=== PATIENT | female | born 1955 | race Hispanic/Latino ===

== ENCOUNTER 2021-07-11 18:44 | Inpatient (IN) | payer MEDICARE ==
[2021-07-11 19:51] LABS: Basophils % (Auto) 0.4 % (0.0-1.8); Eosinophils # (Auto) 0.1 K/mm3 (0.0-0.4); Eosinophils % (Auto) 1.9 % (0.0-4.3); Hematocrit 41.6 % (30.3-42.9); Hemoglobin 13.5 gm/dl (10.1-14.3); Lymphocytes # (Auto) 1.7 K/mm3 (1.2-5.4); Lymphocytes % (Auto) 22.6 % (13.4-35.0); Mean Corpuscular HGB Conc 32 % (30-34); Mean Corpuscular Volume 92 fl (79-97); Monocytes % (Auto) 12.6 % (0.0-7.3); Platelet Count 383 K/mm3 (140-440); Red Blood Count 4.52 M/mm3 (3.65-5.03); Red Cell Distribution Width 15.3 % (13.2-15.2)
[2021-07-11 20:01] LABS: INR 1.09 (0.87-1.13); Partial Thromboplastin Time 28.4 Sec. (24.2-36.6)
[2021-07-11 20:08] LABS: Alanine Aminotransferase 20 units/L (7-56); Albumin 3.4 g/dL (3.9-5); Blood Urea Nitrogen 14 mg/dL (7-17); Calcium 9.4 mg/dL (8.4-10.2); Hemolysis Index 13
[2021-07-11 20:12] LABS: BUN/Creatinine Ratio 20
--- NOTE | 2021-07-11 22:02 | Emergency Department Report ---
HPI - General Chief Complaint: Vaginal Bleeding Time Seen by Provider: 07/11/21 21:12 - HPI HPI: 66-year-old female with history of dementia, obstructive sleep apnea, CHF, hypertension, UTI/pneumonia/sepsis currently on IV antibiotics and on Eliquis for unknown reasons brought in by EMS from her [facility] due to vaginal bleeding which has been ongoing for 1 month. Patient states that she has been experiencing vaginal bleeding over that period which is similar to the amount of bleeding she used to experience with her menstrual cycles. She is also passing blood clots. The reason she was brought in today was because the nurse who changes her diapers said that she had a lot of clots with bright red blood. She says she has some general abdominal cramps occasionally which feel like menstrual cramping but denies any significant abdominal pain. She also denies any associated headache/vision change, neck pain, chest pain, shortness of breath, nausea/vomiting, dysuria, melena/hematochezia, or any other complaints. It has been several years since her last menstrual cycle. Nurse Lozada called the [facility] and spoke with staff there who stated that the patient has not had vaginal bleeding for 1 month but in fact the bleeding started today which is the reason she was sent to the emergency department. ED Past Medical Hx - Past Medical History Previous Medical History?: Yes Hx Hypertension: Yes Hx GERD: Yes (with esophagitis) Hx Asthma: Yes (unilateral osteoartritis) Hx Dementia: Yes Additional medical history: UTIs, Obstructive Sleep Apnea, Bedbound at [facility], Patient take Eliquis ED Review of Systems ROS: Stated complaint: vaginal bleeding x 1 month Other details as noted in HPI Comment: All other systems reviewed and negative Constitutional: denies: chills, fever Eyes: denies: eye pain, vision change ENT: denies: throat pain, congestion Respiratory: denies: cough, shortness of breath Cardiovascular: denies: chest pain, palpitations Gastrointestinal: denies: abdominal pain, nausea, vomiting Genitourinary: other (vaginal bleeding). denies: dysuria, frequency Musculoskeletal: denies: back pain, arthralgia Skin: denies: rash, lesions Neurological: denies: headache, weakness, numbness Hematological/Lymphatic: easy bleeding, easy bruising Physical Exam - Physical Exam Vital Signs: Vital Signs 07/11/21 07/11/21 20:21 21:38 Temperature 98.2 F Pulse Rate 109 H 114 H Respiratory 20 20 Rate Blood Pressure 119/71 129/80 [Right] O2 Sat by Pulse 95 95 Oximetry Physical Exam: GENERAL: Morbidly obese female in no acute distress. HEAD: Normocephalic. No obvious signs of trauma. ENT: Dry mucous membranes. EYES: Extraocular movements are intact. Pupils are equal round and reactive to light bilaterally NECK: Supple. Full ROM is intact. Trachea is midline. LUNGS: Tachypneic. Equal chest rise bilaterally. Coarse breath sounds. Otherwise clear to auscultation bilaterally. CARDIOVASCULAR: Tachycardic with regular rhythm. No murmurs or rubs. VASCULAR: Cap refill < 2 seconds. 1+ pitting edema of the bilateral lower extremities ABDOMEN: Abdomen is soft and nondistended. There is no significant tenderness, guarding or rebound. There are multiple bruises seen throughout the abdomen /Rectal: With nurse present as pharmaceutical worker and the patient was rolled and cleaned and it can be seen that bleeding and blood clots are coming from the vagina. There is normal brown appearing stool in the rectum. Very difficult to see given the patient's body habitus and adiposity. SKIN: Skin is warm and dry NEURO: Patient is awake, alert, and oriented. Tremulous. glass wool blanket machine feeder II-XII grossly intact. No focal deficits. Normal motor and sensory exam throughout. Normal speech. ED Course Vital Signs 07/11/21 07/11/21 20:21 21:38 Temperature 98.2 F Pulse Rate 109 H 114 H Respiratory 20 20 Rate Blood Pressure 119/71 129/80 [Right] O2 Sat by Pulse 95 95 Oximetry ED Medical Decision Making - Lab Data Result diagrams: 07/12/21 02:27 07/11/21 19:34 - Radiology Data Radiology results: report reviewed - Medical Decision Making 66-year-old female with morbid obesity, dementia, MONA, hypertension, and CHF with recent pneumonia and sepsis and on Eliquis for unknown reason here for vaginal bleeding for 1 month with passage of blood clots. On initial assessment, the patient is afebrile and with normal vital signs other than elevated heart rate in the 100s to 110s. On physical exam, the patient is pale appearing and tachypneic. She is tremulous. Examination was performed with nurse present as pharmaceutical worker and confirms that bleeding is coming from the vagina but it is very difficult to visualize anything beyond that due to the patient's body habitus and adiposity. She has bruising on the abdomen. Labs were drawn prior to my examination and reveal no significant leukocytosis or anemia., Normal kidney function and no significant electrolyte abnormalities. We will perform CTA of the abdomen to assess for any evidence of active bleeding or internal bleeding given that the patient is anticoagulated with active vaginal bleeding and with bruising to the abdomen. Urinalysis shows evidence of UTI. I have ordered IV Rocephin and IV fluids. On repeat assessment, the patient remains unchanged. She remains tachycardic in the 120s. It is unclear whether the patient's status is changed from prior or whether she is chronically with tachycardia in the 120s. When the nurse spoke with staff at the [facility], she was told that in fact the patient has not had 1 month of vaginal bleeding but it started today for the first time. They also report that prior to today the patient's heart rate was in the 70s to 90s and that the tachycardia is new. Given increased tachycardia with vaginal bleeding in a patient who is anticoagulated, I feel that she requires frequent monitoring and assessment by [employer]CTURING TECHNOLOGIST. I spoke with Dr. Hebert of [employer] TECHNOLOG[employer] who states he will consult in the morning. I have also ordered a right upper quadrant ultrasound given finding of gas on CT which could be related to the patient's positioning according to the radiologist when I spoke to him on the phone. I spoke with Dr. Paulson the on-call hospitalist regarding case and he accepts patient for admission will assume care. Critical care attestation.: If time is entered above; I have spent that time in minutes in the direct care of this critically ill patient, excluding procedure time. ED Disposition Clinical Impression: Vaginal bleeding, UTI (urinary tract infection), Morbid obesity, Anticoagulated, Uterine fibroid Disposition: ADMITTED INPATIENT Is pt being admited?: Yes
[2021-07-12 00:34] LABS: Bilirubin,Urine NEG (Negative); Blood,Urine LG (Negative); Color,Urine Red (Yellow); Urobilinogen,Urine < 2.0 mg/dL (<2.0)
--- NOTE | 2021-07-12 00:40 | Cat Scan Report ---
CTA ABDOMEN AND PELVIS WITHOUT AND WITH CONTRAST INDICATION / CLINICAL INFORMATION: Evaluate for active bleeding. TECHNIQUE: Axial CT images were obtained through the abdomen and pelvis before and after after inject ion of 100 cc Omnipaque 350 IV contrast. 3 plane MIP / 3D reconstructions were produced. All CT scans at this location are performed using CT dose reduction for ALARA by means of automated exposure cont rol. COMPARISON: None available. FINDINGS: VASCULAR FINDINGS: AORTA / ARTERIES: No significant abnormality. NONVASCULAR FINDINGS: LOWER CHEST: Moderate cardiomegaly. No pericardial effusion. Lungs are blurred by motion. Nonspecific groundglass attenuation. LIVER: No significant abnormality. GALLBLADDER: Cholelithiasis multiple stones within the neck of the gallbladder. Small collection of a ir within the anti--dependent gallbladder not excluded. BILE DUCTS: No significant abnormality. SPLEEN: No significant abnormality. PANCREAS: No significant abnormality. ADRENALS: No significant abnormality. RIGHT KIDNEY / URETER: No significant abnormality. Small right renal cysts are suggested. LEFT KIDNEY / URETER: No significant abnormality. STOMACH / DUODENUM / SMALL BOWEL: No significant abnormality. COLON: No significant abnormality. No obvious intraluminal extravasation of intravenous contrast in t he delayed series to suggest active hemorrhage. APPENDIX: Not identified PERITONEUM: No free fluid. No free air. No findings to suggest active intraperitoneal hemorrhage. LYMPH NODES: No significant adenopathy. IVC / VEINS: No significant abnormality. URINARY BLADDER: No significant abnormality. REPRODUCTIVE ORGANS: Calcified uterine fibroids. Minimal prominence of the endometrial cavity demonst rated. ADDITIONAL ABDOMINAL/PELVIC FINDINGS: Foci of subcutaneous attenuation bilaterally within the neck. R eflect injection sites. No fluid collections or findings to suggest soft tissue hemorrhage within the abdominal pelvic wall. SKELETAL SYSTEM: Multilevel degenerative changes of the lumbar spine facet joints. IMPRESSION: 1. No CT evidence of active intraluminal extravasation of contrast to suggest active hemorrhage withi n bowel. No areas of active hemorrhage within the peritoneal cavity. No active hemorrhage within the soft tissues and musculature of the body wall and pelvic wall. 2. Cholelithiasis small collection of air within the antidependent gallbladder suggested. Signer Name: Christophe River II, MD Signed: 07/12/2021 12:36 AM Workstation Name: [id number]
[2021-07-12 00:45] LABS: Bacteria,Urine 2+ /HPF (Negative); Mucus,Urine FEW /HPF
[2021-07-12] MEDS ORDERED: cefTRIAXone/NS 2 GM/100 ML 2 GM/100 ML BAG IV ONE (00:50)
[2021-07-12] MEDS ORDERED: SODIUM CHLORIDE 0.9% 500 ML 500 ML IV ONE (01:03)
[2021-07-12] MEDS ORDERED: CEFEPIME/NS 2 GM/100 ML 2 GM/100 ML BAG IV ONE (02:07)
--- NOTE | 2021-07-12 02:51 | XRay Report ---
CHEST 1 VIEW INDICATION / CLINICAL INFORMATION: tachycardia. COMPARISON: None available. FINDINGS: SUPPORT DEVICES: None. HEART / MEDIASTINUM: No significant abnormality. LUNGS / PLEURA: No significant pulmonary or pleural abnormality. No pneumothorax. ADDITIONAL FINDINGS: No significant additional findings. IMPRESSION: 1. No active cardiopulmonary disease. Signer Name: Christophe River II, MD Signed: 07/12/2021 2:47 AM Workstation Name: [id number]
[2021-07-12 03:03] LABS: Basophils # (Auto) 0.1 K/mm3 (0.0-0.1); Basophils % (Auto) 1.2 % (0.0-1.8); Eosinophils # (Auto) 0.1 K/mm3 (0.0-0.4); Hemoglobin 13.6 gm/dl (10.1-14.3); Lymphocytes # (Auto) 1.5 K/mm3 (1.2-5.4); Monocytes # (Auto) 1.1 K/mm3 (0.0-0.8); Monocytes % (Auto) 12.2 % (0.0-7.3)
[2021-07-12] MEDS ORDERED: MORPHINE 2 MG/1 ML INJ IV PRN (03:12)
[2021-07-12] MEDS ORDERED: HYDROmorphone 1 MG/1 ML INJ IV PRN (03:12)
[2021-07-12] MEDS ORDERED: ALBUTEROL 2.5 MG/3 ML NEBU IH PRN (03:12)
[2021-07-12] MEDS ORDERED: SODIUM CHLORIDE 0.9% 1000 ML 1,000 ML IV SCH (03:15)
--- NOTE | 2021-07-12 03:19 | History and Physical Report ---
History of Present Illness Date of examination: 07/12/21 Date of admission: 07/12/21 Chief complaint: Vaginal bleeding History of present illness: 66-year-old female with history of dementia, obstructive sleep apnea, CHF, hypertension, UTI/pneumonia/sepsis currently on IV antibiotics and on Eliquis for unknown reasons brought in by EMS from her [facility] due to vaginal bleeding which has been ongoing for 1 month. Patient has been experiencing vaginal bleeding over that period which is similar to the amount of bleeding she used to experience with her menstrual cycles. She is also passing blood clots. The reason she was brought in today was because the nurse who changes her diapers said that she had a lot of clots with bright red blood. She says she aguayo s some general abdominal cramps occasionally which feel like menstrual cramping but denies any significant abdominal pain. She also denies any associated headache/vision change, neck pain, chest pain, shortness of breath, nausea/vomiting, dysuria, melena/hematochezia, or any other complaints. It has been several years since her last menstrual cycle. Nurse Lozada called the [facility] and spoke with staff there who stated that the patient has not had vaginal bleeding for 1 month but in fact the bleeding started today which is the reason she was sent to the emergency department. In the ER patient hemoglobin is 13.5 and hematocrit 41.6. WBC 7.7, PT is 15.3 INR 1.09. Urine suggestive of UTI. Subsequently Case discussed with on-call CONFERENCE ORGANIZER doctor who recommends to admit under hospitalist service and she will consult the patient. Past History Past Medical History: arthritis (Dementia UTIs, Obstructive Sleep Apnea, Bedbound at [facility], Patient take Eliquis), GERD (Asthma), other (dementia, obstructive sleep apnea, CHF, hypertension, UTI/pneumonia/sepsis ) Medications and Allergies Allergies Allergy/AdvReac Type Severity Reaction Status Date / Time No Known Allergies Allergy Unverified 07/11/21 19:14 Review of Systems Constitutional: weakness Genitourinary Female: abnormal vaginal bleeding Exam - Constitutional Vitals: Temp Pulse Resp BP Pulse Ox 98.2 F 115 H 20 121/76 96 07/11/21 20:21 07/12/21 01:00 07/12/21 01:00 07/12/21 01:00 07/12/21 01:00 General appearance: Present: no acute distress, well-nourished - EENT Eyes: Present: PERRL ENT: hearing intact, clear oral mucosa - Neck Neck: Present: supple, normal ROM - Respiratory Respiratory effort: normal Respiratory: bilateral: diminished - Cardiovascular Heart Sounds: Present: S1 & S2. Absent: rub, click - Extremities Extremities: pulses symmetrical, No edema Peripheral Pulses: within normal limits - Abdominal General gastrointestinal: Present: soft, non-tender, non-distended, normal bowel sounds Female genitourinary: Present: normal - Integumentary Integumentary: Present: clear, warm, dry - Musculoskeletal Musculoskeletal: gait normal, strength equal bilaterally - Psychiatric Psychiatric: appropriate mood/affect, intact judgment & insight - Neurologic Neurologic: CNII-XII intact, moves all extremities Results - Labs CBC & Chem 7: 07/12/21 02:27 07/11/21 19:34 Labs: Laboratory Last Values WBC 8.6 K/mm3 (4.5-11.0) 07/12/21 02:27 RBC 4.52 M/mm3 (3.65-5.03) 07/11/21 19:34 Hgb 13.6 gm/dl (10.1-14.3) 07/12/21 02:27 Hct 41.6 % (30.3-42.9) 07/11/21 19:34 MCV 92 fl (79-97) 07/11/21 19:34 MCH 30 pg (28-32) 07/11/21 19:34 MCHC 32 % (30-34) 07/11/21 19:34 RDW 15.3 % (13.2-15.2) H 07/11/21 19:34 Plt Count 383 K/mm3 (140-440) 07/11/21 19:34 Lymph % (Auto) 18.0 % (13.4-35.0) 07/12/21 02:27 [place] % (Auto) 12.2 % (0.0-7.3) H 07/12/21 02:27 Eos % (Auto) 1.0 % (0.0-4.3) 07/12/21 02:27 Baso % (Auto) 1.2 % (0.0-1.8) 07/12/21 02:27 Lymph # (Auto) 1.5 K/mm3 (1.2-5.4) 07/12/21 02:27 [place] # (Auto) 1.1 K/mm3 (0.0-0.8) H 07/12/21 02:27 Eos # (Auto) 0.1 K/mm3 (0.0-0.4) 07/12/21 02:27 Baso # (Auto) 0.1 K/mm3 (0.0-0.1) 07/12/21 02:27 Seg Neutrophils % 67.6 % (40.0-70.0) 07/12/21 02:27 Seg Neutrophils # 5.8 K/mm3 (1.8-7.7) 07/12/21 02:27 PT 15.3 Sec. (12.2-14.9) H 07/11/21 19:34 INR 1.09 (0.87-1.13) 07/11/21 19:34 APTT 28.4 Sec. (24.2-36.6) 07/11/21 19:34 Sodium 139 mmol/L (137-145) 07/11/21 19:34 Potassium 4.4 mmol/L (3.6-5.0) 07/11/21 19:34 Chloride 100.1 mmol/L (98-107) 07/11/21 19:34 Carbon Dioxide 28 mmol/L (22-30) 07/11/21 19:34 Anion Gap 15 mmol/L 07/11/21 19:34 BUN 14 mg/dL (7-17) 07/11/21 19:34 Creatinine 0.7 mg/dL (0.6-1.2) 07/11/21 19:34 Estimated GFR > 60 ml/min 07/11/21 19:34 BUN/Creatinine Ratio 20 % 07/11/21 19:34 Glucose 119 mg/dL (65-100) H 07/11/21 19:34 Calcium 9.4 mg/dL (8.4-10.2) 07/11/21 19:34 Total Bilirubin 0.40 mg/dL (0.1-1.2) 07/11/21 19:34 AST 26 units/L (5-40) 07/11/21 19:34 ALT 20 units/L (7-56) 07/11/21 19:34 Alkaline Phosphatase 37 units/L (35-129) 07/11/21 19:34 Total Protein 7.2 g/dL (6.3-8.2) 07/11/21 19:34 Albumin 3.4 g/dL (3.9-5) L 07/11/21 19:34 Albumin/Globulin Ratio 0.9 % 07/11/21 19:34 Urine Color Red (Yellow) 07/12/21 Unknown Urine Turbidity Cloudy (Clear) 07/12/21 Unknown Urine pH 6.0 (5.0-7.0) 07/12/21 Unknown Ur Specific [place] 1.017 (1.003-1.030) 07/12/21 Unknown Urine Protein 100 mg/dl mg/dL (Negative) 07/12/21 Unknown Urine Glucose (UA) Neg mg/dL (Negative) 07/12/21 Unknown Urine Ketones Tr mg/dL (Negative) 07/12/21 Unknown Urine Blood Lg (Negative) 07/12/21 Unknown Urine Nitrite Neg (Negative) 07/12/21 Unknown Urine Bilirubin Neg (Negative) 07/12/21 Unknown Urine Urobilinogen < 2.0 mg/dL (<2.0) 07/12/21 Unknown Ur Leukocyte Esterase Mod (Negative) 07/12/21 Unknown Urine WBC (Auto) 23.0 /HPF (0.0-6.0) H 07/12/21 Unknown Urine RBC (Auto) 38.0 /HPF (0.0-6.0) 07/12/21 Unknown U Epithel Cells (Auto) 3.0 /HPF (0-13.0) 07/12/21 Unknown Urine Bacteria (Auto) 2+ /HPF (Negative) 07/12/21 Unknown Urine Mucus Few /HPF 07/12/21 Unknown - Imaging and Cardiology CT scan - abdomen: report reviewed Assessment and Plan VTE prophylaxis?: Mechanical Plan of care discussed with patient/family: Yes - Patient Problems (1) Vaginal bleeding Current Visit: Yes Status: Acute Plan to address problem: Admit the patient to the medical telemetry. Normal saline at the rate of 75 cc/h. We will hold the anticoagulation. FINISHING ROOM OPERATOR will see the patient in consultation. Recheck CBC in the morning (2) Anticoagulated Current Visit: Yes Status: Acute Plan to address problem: We hold anticoagulation Eliquis. FINISHING ROOM OPERATOR evaluation. Recheck CBC PT/INR in the morning (3) UTI (urinary tract infection) Current Visit: Yes Status: Acute Plan to address problem: Rocephin 2 g IV daily. Blood culture urine culture (4) GERD (gastroesophageal reflux disease) Current Visit: Yes Status: Acute Plan to address problem: Pepcid 20 mg p.o. twice daily for GI prophylaxis. We will continue the home medication (5) Dementia Current Visit: Yes Status: Acute Plan to address problem: Stable. We will continue home medication (6) Hypertension Current Visit: Yes Status: Acute Plan to address problem: Hydralazine 10 mg IV every 6 hours as needed. We will continue the home medication. We will monitor the blood pressure closely (7) Obstructive sleep apnea Current Visit: Yes Status: Acute Plan to address problem: Oxygen via nasal cannula 3 L/min. DuoNeb by nebulizer every 4 hours. Outpatient sleep study (8) Morbid obesity Current Visit: Yes Status: Acute Plan to address problem: We counseled regarding weight reduction. Outpatient follow-up with bariatric surgery (9) Uterine fibroid Current Visit: Yes Status: Acute Plan to address problem: FINISHING ROOM OPERATOR will see the patient in consultation. Recheck CBC in the morning (10) DVT prophylaxis Current Visit: Yes Status: Acute Plan to address problem: SCD for DVT prophylaxis. Pepcid 20 mg p.o. twice daily for GI prophylaxis. Patient is a full code
[2021-07-12 03:27] LABS: Hematocrit 42.4 % (30.3-42.9); Mean Corpuscular HGB Conc 32 % (30-34); Mean Corpuscular Volume 92 fl (79-97); Platelet Count 351 K/mm3 (140-440); Red Cell Distribution Width 15.5 % (13.2-15.2)
[2021-07-12] MEDS: IPRATROPIUM/ALBUTEROL SULFATE 3 ML AMPUL.NEB IH SCH ×3 (10:35→22:58)
[2021-07-12] MEDS: cefTRIAXone/NS 2 GM/100 ML 2 GM/100 ML BAG IV SCH (12:50)
--- NOTE | 2021-07-12 15:21 | Consultation ---
History of Present Illness Consult date: 07/12/21 Reason for consult: other (postmenopausal bleed with clots) History of present illness: 66yo that gives history of vaginal bleeding monthly for the past 2yrs. pt states that bleeding has been persistent for the past 2wks. pt denies having sexual intercourse for the past 10yrs nor any stds in the past. pt also denies family history of uterine or cervical cancer. pt's last pap was more than 10yrs ago and states she has never had an abnormal pap. pt says she was placed on blood thinners because she "passed out". pt denies pelvic pain. Past History Past Medical History: hypertension, other (Dementia, CHF, morbid obesity per primary team H&P) Past Surgical History: other (right total knee replacement) Social history: no significant social history Medications and Allergies Allergies Allergy/AdvReac Type Severity Reaction Status Date / Time No Known Allergies Allergy Verified 07/12/21 08:57 Home Medications Medication Instructions Recorded Confirmed Last Taken Type Acetaminophen [Non-Aspirin Extra 1,000 mg PO Q6HR PRN 07/12/21 07/12/21 Unknown History Strength] Albuterol Mdi (or & Nicu Only) 2 puff IH Q4H PRN 07/12/21 07/12/21 Unknown Hi story [ProAir HFA Inhaler] Apixaban [Eliquis] 2.5 mg PO BID 07/12/21 07/12/21 Unknown History Benzonatate [Tessalon Perles] 100 mg PO TID PRN 07/12/21 07/12/21 Unknown History Budesonide/Formoterol Fumarate 2 puff IH Q12H 07/12/21 07/12/21 Unknown History [Symbicort 160-4.5 Mcg Inhaler] Divalproex Sprinkle [Depakote 250 mg PO Q12H 07/12/21 07/12/21 Unknown History Sprinkle] Enalapril Maleate [Vasotec] 5 mg PO QDAY 07/12/21 07/12/21 Unknown History Fenofibrate 160 mg PO QDAY 07/12/21 07/12/21 Unknown History Melatonin [Melatonin 3MG TAB] 3 mg PO QHS 07/12/21 07/12/21 Unknown History Metoprolol [Lopressor TAB] 25 mg PO BID 07/12/21 07/12/21 Unknown History Omeprazole 20 mg PO QDAY 07/12/21 07/12/21 Unknown History Sennosides/Docusate Sodium 1 tab PO BID 07/12/21 07/12/21 Unknown History [Docusate Sodium-Senna Tablet] Simvastatin 20 mg PO QHS 07/12/21 07/12/21 Unknown History traZODone [Desyrel] 50 mg PO QHS 07/12/21 07/12/21 Unknown History Active Meds: Active Medications Acetaminophen (Acetaminophen 325 Mg Tab) 650 mg PO Q4H PRN PRN Reason: Pain MILD(1-3)/Fever >100.5/CHENG Albuterol (Albuterol 2.5 Mg/3 Ml Nebu) 2.5 mg IH Q3HRT PRN PRN Reason: Shortness Of Breath Albuterol/Ipratropium (Ipratropium/Albuterol Sulfate 3 Ml Ampul.Neb) 1 ampul IH Q6HRT [facility] Last Admin: 07/12/21 15:03 Dose: Not Given Famotidine (Famotidine 20 Mg Tab) 20 mg PO BID [facility] Hydromorphone HCl (Hydromorphone 1 Mg/1 Ml Inj) 0.5 mg IV Q3H PRN PRN Reason: Pain , Severe (7-10) Sodium Chloride (Nacl 0.9% 1000 Ml) 1,000 mls @ 75 mls/hr IV DIRECT [facility] Last Admin: 07/12/21 12:55 Dose: 75 mls/hr Ceftriaxone Sodium (Rocephin/Ns 2 Gm/100 Ml) 2 gm in 100 mls @ 200 mls/hr IV Q24HR [facility]; Protocol Last Admin: 07/12/21 12:50 Dose: 200 mls/hr Morphine Sulfate (Morphine 2 Mg/1 Ml Inj) 2 mg IV Q4H PRN PRN Reason: Pain, Moderate (4-6) Ondansetron HCl (Ondansetron 4 Mg/2 Ml Inj) 4 mg IV Q8H PRN PRN Reason: Nausea And Vomiting Sodium Chloride (Sodium Chloride 0.9% 10 Ml Flush Syringe) 10 ml IV BID [facility] Last Admin: 07/12/21 12:51 Dose: 10 ml Sodium Chloride (Sodium Chloride 0.9% 10 Ml Flush Syringe) 10 ml IV PRN PRN PRN Reason: LINE FLUSH Review of Systems All systems: negative (vag bleed) - Vital Signs Vital signs: Vital Signs Temp Pulse Resp BP Pulse Ox 98.2 F 109 H 20 119/71 95 07/11/21 20:21 07/11/21 20:21 07/11/21 20:21 07/11/21 20:21 07/11/21 20:21 Temp Pulse Resp BP Pulse Ox 97.7 F 121 H 18 106/68 92 07/12/21 12:10 07/12/21 12:10 07/12/21 12:10 07/12/21 12:10 07/12/21 12:10 - Physical Exam Breasts: Positive: deferred Cardiovascular: Regular rate Lungs: Positive: Normal air movement Abdomen: Positive: soft (morbid obesity, therefore limited exam) Genitourinary (Female): Positive: other (limited exam because of bilateral thigh occlude visibility of perineum; Cervix barely palpated and same; Old blood with 1cm dark clot seen) Uterus: Positive: other (Unable to palpate uterus thru pannus; pt also incontinent of stool, copious amount and pt examined after she was cleaned up) Results Result Diagrams: 07/13/21 05:56 07/13/21 05:56 Abnormal lab results 07/11/21 07/11/21 07/11/21 Range/Units 19:34 19:34 19:34 RDW 15.3 H (13.2-15.2) % [place] % (Auto) 12.6 H (0.0-7.3) % [place] # (Auto) 1.0 H (0.0-0.8) K/mm3 PT 15.3 H (12.2-14.9) Sec. Glucose 119 H (65-100) mg/dL Albumin 3.4 L (3.9-5) g/dL Urine WBC (Auto) (0.0-6.0) /HPF 07/12/21 07/12/21 Range/Units 02:27 Unknown RDW 15.5 H (13.2-15.2) % [place] % (Auto) 12.2 H (0.0-7.3) % [place] # (Auto) 1.1 H (0.0-0.8) K/mm3 PT (12.2-14.9) Sec. Glucose (65-100) mg/dL Albumin (3.9-5) g/dL Urine WBC (Auto) 23.0 H (0.0-6.0) /HPF All other labs normal. Assessment and Plan Postmenopausal bleed, with unchanged hemoglobin and without hemorrhage 1. CT report seen with minimal prominence of endometrial canal; transvag with probe pelvic u/sound ordered and pt told that probe will be used 2. Pt is a poor surgical candidate, however tissue sample needed if endometrial lining >1cm 3. Primary med team to decide how much anticoagulant needed for her chronic ill ness 4. Pt can be evaluated as an outpatient without active hemorrhage with clots 5. Continue serial CBC's All questions encouraged and answered
[2021-07-12] MEDS: FAMOTIDINE 20 MG TAB PO SCH ×2 (15:56→21:58)
--- NOTE | 2021-07-12 18:07 | Ultrasound Report ---
ULTRASOUND PELVIS INDICATION: postmenopausal bleeding. TECHNIQUE: Transabdominal and Transvaginal. Duplex Color Doppler used: Yes. COMPARISON: None available FINDINGS: This study is limited by the patient's inability to tolerate transvaginal imaging. Uterus: Present. Size: 9.7 x 3.0 x 6.0 cm. Endometrial complex: Mildly thickened, measuring 0.55 cm. Mass lesions: A probable fibroid is seen arising anteriorly measuring up to 5.3 cm. No other masses a re identified. Additional findings: None. Right Ovary: Surgically absent. No significant right adnexal abnormality. Left Ovary: Obscured by bowel gas. No left adnexal abnormality is clearly seen. Urinary Bladder: Normal. Free Fluid: None. Additional Findings: None. IMPRESSION: 1. Mild endometrial thickening measuring 0.55 cm without identification of an endometrial mass. 2. Probable uterine fibroid as above. 3. Additional findings as above. Signer Name: Gio Chao MD Signed: 07/12/2021 6:03 PM Workstation Name: [id number]
--- NOTE | 2021-07-12 22:22 | Progress Note ---
Assessment and Plan Assessment and plan: 66-year-old female with history of severe obesity with BMI 55, mild dementia dementia, obstructive sleep apnea, CHF, hypertension and fully ambulatory was living with her daughter when she was admitted to [place] in special care hospital couple of weeks ago in 06/2021 and was diagnosed with the COVID-19 pneumonia, UTI and bloodstream infection and was discharged to subacute rehab on IV antibiotics and on Eliquis for unknown reasons brought in by EMS from her assisted due to vaginal bleeding which has been ongoing for 2 weeks. Records with patient and daughter patient had no menses for for couple of years and then menses resumed about years ago but patient did not get this evaluated. According daughter, menses are sometimes heavy. Patient is sent to ED for evaluation since having bleeding for 2 weeks with passed some clots. Some menstrual type of abdominal cramps but denies any significant abdominal pain. She also denies any associated headache/vision change, neck pain, chest pain, shortness of breath, nausea/vomiting, dysuria, melena/hematochezia, or any other complaints. She has history of heart failure and there was seeing for several years then quit seeing him many years ago. In the ER patient hemoglobin is 13.5 and hematocrit 41.6. WBC 7.7, PT is 15.3 INR 1.09. Urine suggestive of UTI. Patient has no fever or chills. Subsequently Case discussed with on-call SLP doctor who recommends to admit under hospitalist service and she will consult the patient. (1) uterine bleeding with history of menses after a gap, age 66 years Current Visit: Yes Status: Acute Plan to address problem: Currently no vaginal bleeding. Pelvic examination performed by SLP today revealed dark blood on glove. Patient denies abdominal pains or cramping. Patient reports having menses since 2 years after interruption for a couple of years. Not previously worked up by SLP. CT abdomen/pelvis shows minimally prominent endometrium and a calcified fibroid. Vaginal ultrasound shows fatoumata rderline endometrial thickness, 0.55 Centimeters, fibroid, right ovary surgically absent. ovary is obscured by bowel gas. Urinary bladder unremarkable. Patient denies dizziness, lightheadedness, chest pains or palpitations. SLP recommends endometrial biopsy if endometrial thickness is more than 1 cm. Patient could be followed as outpatient. Hemoglobin and BP stable. Patient has mild sinus tachycardia with unknown baseline. Will monitor hemodynamics and hemoglobin. (2) Anticoagulated with Eliquis Current Visit: Yes Status: Acute Plan to address problem: We hold anticoagulation Eliquis for now. Vaginal bleeding almost stopped. Indication for Eliquis started recently is unclear but could be related to thrombophilia seen with COVID-19 infection. (3) recently treated UTI with bacteremia, current urine cultures grew skin dottie Current Visit: Yes Status: Acute Plan to address problem: Patient was recently diagnosed with UTI and bacteremia at [facility] and sent home on IV antibiotics. Currently has no fever, dysuria. Empirically started on Rocephin Rocephin 2 g IV daily. Blood culture negative. Urine culture grew skin dottie. Discontinue Rocephin. Pelvic ultrasound shows unremarkable urinary bladder. Bedside bladder scan shows no urinary retention. (4) GERD (gastroesophageal reflux disease) Current Visit: Yes Status: Acute Plan to address problem: Pepcid 20 mg p.o. twice daily for GI prophylaxis. We will continue the home medication (5) mild dementia Current Visit: Yes Status: Acute Plan to address problem: Stable. Patient alert and oriented and answers to questions appropriately. She does get occasionally confused as described by her daughter. We will continue home medication (6) Hypertension Current Visit: Yes Status: Acute Plan to address problem: Hydralazine 10 mg IV every 6 hours as needed. We will continue the home medication. We will monitor the blood pressure closely (7) severe obesity, BMI 55, obstructive sleep apnea Current Visit: Yes Status: Acute Plan to address problem: Oxygen via nasal cannula 3 L/min. DuoNeb by nebulizer every 4 hours. Outpatient sleep study (8) remote history of heart failure Current Visit: Yes Status: Acute Plan to address problem: Patient was seeing a payment poster, Dr. Larose for several years but then quit seeing him many years ago. Currently appears to be euvolemic. Has mild sinus tachycardia but baseline rate unknown. (9) Uterine fibroid Current Visit: Yes Status: Acute Plan to address problem: Seen on CT on the ultrasound. AGRICULTURAL EXTENSION EDUCATOR will see the patient in consultation. Recheck CBC in the morning (10) DVT prophylaxis Current Visit: Yes Status: Acute Plan to address problem: SCD for DVT prophylaxis. Pepcid 20 mg p.o. twice daily for GI prophylaxis. Patient is a full code Discussed with the patient, nursing staff, her daughter as well as SLP. History Interval history: Patient is alert and oriented. Currently no vaginal bleeding. Pelvic examination performed by SLP today revealed dark blood on glove. Patient denies abdominal pains or cramping. Patient reports having menses since 2 years after interruption for a couple of years. Not previously worked up by SLP. Patient denies dizziness, lightheadedness, chest pains or palpitations. She is tolerating diet. Afebrile. Patient not sure of the indication for Eliquis therapy started at [facility]. Denies history of A. fib. No ecchymosis/bruises, hematuria, melena hematochezia. BP and hemoglobin stable. BP and hemoglobin stable. Hospitalist Physical - Constitutional Vitals: Temp Pulse Resp BP Pulse Ox 97.7 F 122 H 19 123/83 90 07/12/21 19:33 07/12/21 19:33 07/12/21 19:33 07/12/21 19:33 07/12/21 19:33 General appearance: Present: no acute distress, obese (Severe obesity, BMI 55.) - EENT Eyes: Present: PERRL, EOM intact ENT: hearing intact, clear oral mucosa - Neck Neck: Present: supple - Respiratory Respiratory effort: normal Respiratory: bilateral: CTA - Cardiovascular Rhythm: regular - Extremities Extremities: No edema - Abdominal General gastrointestinal: soft, non-tender, normal bowel sounds, other (Obese) - Integumentary Integumentary: Absent: rash - Psychiatric Psychiatric: appropriate mood/affect - Neurologic Neurologic: no focal deficits, moves all extremities Results - Labs CBC & Chem 7: 07/13/21 05:56 07/13/21 05:56 Labs: Laboratory Last Values WBC 8.6 K/mm3 (4.5-11.0) 07/12/21 02:27 RBC 4.60 M/mm3 (3.65-5.03) 07/12/21 02:27 Hgb 13.6 gm/dl (10.1-14.3) 07/12/21 02:27 Hct 42.4 % (30.3-42.9) 07/12/21 02:27 MCV 92 fl (79-97) 07/12/21 02:27 MCH 30 pg (28-32) 07/12/21 02:27 MCHC 32 % (30-34) 07/12/21 02:27 RDW 15.5 % (13.2-15.2) H 07/12/21 02:27 Plt Count 351 K/mm3 (140-440) 07/12/21 02:27 Lymph % (Auto) 18.0 % (13.4-35.0) 07/12/21 02:27 [place] % (Auto) 12.2 % (0.0-7.3) H 07/12/21 02:27 Eos % (Auto) 1.0 % (0.0-4.3) 07/12/21 02:27 Baso % (Auto) 1.2 % (0.0-1.8) 07/12/21 02:27 Lymph # (Auto) 1.5 K/mm3 (1.2-5.4) 07/12/21 02:27 [place] # (Auto) 1.1 K/mm3 (0.0-0.8) H 07/12/21 02:27 Eos # (Auto) 0.1 K/mm3 (0.0-0.4) 07/12/21 02:27 Baso # (Auto) 0.1 K/mm3 (0.0-0.1) 07/12/21 02:27 Seg Neutrophils % 67.6 % (40.0-70.0) 07/12/21 02: Seg Neutrophils # 5.8 K/mm3 (1.8-7.7) 07/12/21 02:27 PT 15.3 Sec. (12.2-14.9) H 07/11/21 19:34 INR 1.09 (0.87-1.13) 07/11/21 19:34 APTT 28.4 Sec. (24.2-36.6) 07/11/21 19:34 Sodium 139 mmol/L (137-145) 07/11/21 19:34 Potassium 4.4 mmol/L (3.6-5.0) 07/11/21 19:34 Chloride 100.1 mmol/L (98-107) 07/11/21 19:34 Carbon Dioxide 28 mmol/L (22-30) 07/11/21 19:34 Anion Gap 15 mmol/L 07/11/21 19:34 BUN 14 mg/dL (7-17) 07/11/21 19:34 Creatinine 0.7 mg/dL (0.6-1.2) 07/11/21 19:34 Estimated GFR > 60 ml/min 07/11/21 19:34 BUN/Creatinine Ratio 20 % 07/11/21 19:34 Glucose 119 mg/dL (65-100) H 07/11/21 19:34 Calcium 9.4 mg/dL (8.4-10.2) 07/11/21 19:34 Total Bilirubin 0.40 mg/dL (0.1-1.2) 07/11/21 19:34 AST 26 units/L (5-40) 07/11/21 19:34 ALT 20 units/L (7-56) 07/11/21 19:34 Alkaline Phosphatase 37 units/L (35-129) 07/11/21 19:34 Total Protein 7.2 g/dL (6.3-8.2) 07/11/21 19:34 Albumin 3.4 g/dL (3.9-5) L 07/11/21 19:34 Albumin/Globulin Ratio 0.9 % 07/11/21 19:34 Urine Color Red (Yellow) 07/12/21 Unknown Urine Turbidity Cloudy (Clear) 07/12/21 Unknown Urine pH 6.0 (5.0-7.0) 07/12/21 Unknown Ur Specific [place] 1.017 (1.003-1.030) 07/12/21 Unknown Urine Protein 100 mg/dl mg/dL (Negative) 07/12/21 Unknown Urine Glucose (UA) Neg mg/dL (Negative) 07/12/21 Unknown Urine Ketones Tr mg/dL (Negative) 07/12/21 Unknown Urine Blood Lg (Negative) 07/12/21 Unknown Urine Nitrite Neg (Negative) 07/12/21 Unknown Urine Bilirubin Neg (Negative) 07/12/21 Unknown Urine Urobilinogen < 2.0 mg/dL (<2.0) 07/12/21 Unknown Ur Leukocyte Esterase Mod (Negative) 07/12/21 Unknown Urine WBC (Auto) 23.0 /HPF (0.0-6.0) H 07/12/21 Unknown Urine RBC (Auto) 38.0 /HPF (0.0-6.0) 07/12/21 Unknown U Epithel Cells (Auto) 3.0 /HPF (0-13.0) 07/12/21 Unknown Urine Bacteria (Auto) 2+ /HPF (Negative) 07/12/21 Unknown Urine Mucus Few /HPF 07/12/21 Unknown Microbiology: Microbiology 07/12/21 Unknown Urine,Clean Catch Urine Culture - Preliminary 07/12/21 01:47 Peripheral/Venous Blood Culture - Preliminary Culture in Progress 07/12/21 00:54 Peripheral/Venous Blood Culture - Preliminary Culture in Progress Active Medications - Current Medications Current Medications: Generic Name Dose Route Start Last Admin Trade Name Freq PRN Reason Stop Dose Admin Acetaminophen 650 mg 07/12/21 03:12 Acetaminophen 325 Mg Tab PO Q4H PRN Pain MILD(1-3)/Fever >100.5/CHENG Albuterol 2.5 mg 07/12/21 03:12 Albuterol 2.5 Mg/3 Ml Nebu IH Q3HRT PRN Shortness Of Breath Albuterol/Ipratropium 1 ampul 07/12/21 08:00 07/12/21 15:03 Ipratropium/Albuterol Sulfate 3 Ml Ampul.Neb IH Not Given Q6HRT SWATI Famotidine 20 mg 07/12/21 10:00 07/12/21 21:58 Famotidine 20 Mg Tab PO 20 mg BID SWATI Administration Hydromorphone HCl 0.5 mg 07/12/21 03:12 07/12/21 15:56 Hydromorphone 1 Mg/1 Ml Inj IV 0.5 mg Q3H PRN Administration Pain , Severe (7-10) Sodium Chloride 1,000 mls @ 75 mls/hr 07/12/21 03:15 07/12/21 12:55 Nacl 0.9% 1000 Ml IV 75 mls/hr DIRECT SWATI Administration Ceftriaxone Sodium 2 gm in 100 mls @ 200 mls/hr 07/12/21 10:00 07/12/21 12:50 Rocephin/Ns 2 Gm/100 Ml IV 200 mls/hr Q24HR SWATI Administration Protocol Morphine Sulfate 2 mg 07/12/21 03:12 Morphine 2 Mg/1 Ml Inj IV Q4H PRN Pain, Moderate (4-6) Ondansetron HCl 4 mg 07/12/21 03:12 Ondansetron 4 Mg/2 Ml Inj IV Q8H PRN Nausea And Vomiting Sodium Chloride 10 ml 07/12/21 10:00 07/12/21 21:58 Sodium Chloride 0.9% 10 Ml Flush Syringe IV 10 ml BID SWATI Administration Sodium Chloride 10 ml 07/12/21 03:12 Sodium Chloride 0.9% 10 Ml Flush Syringe IV PRN PRN LINE FLUSH
[2021-07-13] MEDS: IPRATROPIUM/ALBUTEROL SULFATE 3 ML AMPUL.NEB IH SCH ×5 (02:21→20:43)
[2021-07-13 06:35] LABS: Basophils # (Auto) 0.1 K/mm3 (0.0-0.1); Basophils % (Auto) 1.3 % (0.0-1.8); Eosinophils # (Auto) 0.1 K/mm3 (0.0-0.4); Eosinophils % (Auto) 1.4 % (0.0-4.3); Hemoglobin 12.3 gm/dl (10.1-14.3); Lymphocytes # (Auto) 1.4 K/mm3 (1.2-5.4); Lymphocytes % (Auto) 16.2 % (13.4-35.0); Mean Corpuscular HGB Conc 33 % (30-34); Mean Corpuscular Volume 92 fl (79-97); Monocytes % (Auto) 10.9 % (0.0-7.3); Platelet Count 336 K/mm3 (140-440); Red Blood Count 4.13 M/mm3 (3.65-5.03); Red Cell Distribution Width 15.4 % (13.2-15.2)
[2021-07-13 06:54] LABS: INR 1.08 (0.87-1.13)
[2021-07-13 06:55] LABS: Blood Urea Nitrogen 16 mg/dL (7-17)
[2021-07-13 06:56] LABS: Hemolysis Index 6
[2021-07-13 07:05] LABS: BUN/Creatinine Ratio 27
[2021-07-13] MEDS: cefTRIAXone/NS 2 GM/100 ML 2 GM/100 ML BAG IV SCH (09:43)
[2021-07-13] MEDS: FAMOTIDINE 20 MG TAB PO SCH ×2 (09:43→21:07)
--- NOTE | 2021-07-13 16:56 | Discharge Summary ---
Providers - Providers Date of Admission: 07/12/21 03:12 Attending physician: ELLI GONSALVES MD 07/12/21 02:14 Consult to Physician [CONS] Urgent Comment: Consulting Provider: RACHEL PAIZ Physician Instructions: Reason For Exam: vag bleeding on eliquis 07/13/21 12:54 psychiatry consult [Consult to Mental Health] [CONS] Stat Reason For Exam: acute paranoid Primary care physician: TORCH CUTTER Hospitalization Condition: Stable Exam - Constitutional Vitals: Temp Pulse Resp BP Pulse Ox 98.4 F 119 H 20 146/87 97 07/13/21 10:08 07/13/21 13:50 07/13/21 13:50 07/13/21 10:08 07/13/21 11:00 Plan Activity: advance as tolerated Diet: low fat Additional Instructions: See Dr. Soto, PRIVATE ADVISOR for follow-up in 2 weeks on vaginal bleeding, call to make an appointment Follow up with: PRIMARY CAREMD [Primary Care Provider] - 3-5 Days
[2021-07-13] MEDS ORDERED: NON-FORMULARY EACH (Budesonide/Formoterol Fumarate [Symbicort 160-4.5 Mcg Inhaler] 10.2 GM IH SCH (18:00)
[2021-07-13] MEDS: ARFORMOTEROL 15 MCG/2 ML NEBU IH SCH (20:39)
[2021-07-13] MEDS: BUDESONIDE 0.5 MG/2 ML NEBU IH SCH (20:39)
--- NOTE | 2021-07-13 20:47 | Progress Note ---
Hospitalist Physical - Constitutional Vitals: Temp Pulse Resp BP Pulse Ox 97.9 F 86 16 140/75 94 07/13/21 19:48 07/13/21 20:00 07/13/21 20:00 07/13/21 19:48 07/13/21 19:48 General appearance: Present: no acute distress, obese (Severe obesity, BMI 55.) Results - Labs CBC & Chem 7: 07/13/21 05:56 07/13/21 05:56 Labs: Laboratory Last Values WBC 8.9 K/mm3 (4.5-11.0) 07/13/21 05:56 RBC 4.13 M/mm3 (3.65-5.03) 07/13/21 05:56 Hgb 12.3 gm/dl (10.1-14.3) 07/13/21 05:56 Hct 38.0 % (30.3-42.9) 07/13/21 05:56 MCV 92 fl (79-97) 07/13/21 05:56 MCH 30 pg (28-32) 07/13/21 05:56 MCHC 33 % (30-34) 07/13/21 05:56 RDW 15.4 % (13.2-15.2) H 07/13/21 05:56 Plt Count 336 K/mm3 (140-440) 07/13/21 05:56 Lymph % (Auto) 16.2 % (13.4-35.0) 07/13/21 05:56 [place] % (Auto) 10.9 % (0.0-7.3) H 07/13/21 05:56 Eos % (Auto) 1.4 % (0.0-4.3) 07/13/21 05:56 Baso % (Auto) 1.3 % (0.0-1.8) 07/13/21 05:56 Lymph # (Auto) 1.4 K/mm3 (1.2-5.4) 07/13/21 05:56 [place] # (Auto) 1.0 K/mm3 (0.0-0.8) H 07/13/21 05:56 Eos # (Auto) 0.1 K/mm3 (0.0-0.4) 07/13/21 05:56 Baso # (Auto) 0.1 K/mm3 (0.0-0.1) 07/13/21 05:56 Seg Neutrophils % 70.2 % (40.0-70.0) H 07/13/21 05:56 Seg Neutrophils # 6.3 K/mm3 (1.8-7.7) 07/13/21 05:56 PT 15.2 Sec. (12.2-14.9) H 07/13/21 05:56 INR 1.08 (0.87-1.13) 07/13/21 05:56 APTT 28.4 Sec. (24.2-36.6) 07/11/21 19:34 Sodium 137 mmol/L (137-145) 07/13/21 05:56 Potassium 3.9 mmol/L (3.6-5.0) 07/13/21 05:56 Chloride 99.5 mmol/L (98-107) 07/13/21 05:56 Carbon Dioxide 24 mmol/L (22-30) 07/13/21 05:56 Anion Gap 17 mmol/L 07/13/21 05:56 BUN 16 mg/dL (7-17) 07/13/21 05:56 Creatinine 0.6 mg/dL (0.6-1.2) 07/13/21 05:56 Estimated GFR > 60 ml/min 07/13/21 05:56 BUN/Creatinine Ratio 27 % 07/13/21 05:56 Glucose 103 mg/dL (65-100) H 07/13/21 05:56 Calcium 9.0 mg/dL (8.4-10.2) 07/13/21 05:56 Total Bilirubin 0.40 mg/dL (0.1-1.2) 07/11/21 19:34 AST 26 units/L (5-40) 07/11/21 19:34 ALT 20 units/L (7-56) 07/11/21 19:34 Alkaline Phosphatase 37 units/L (35-129) 07/11/21 19:34 Total Protein 7.2 g/dL (6.3-8.2) 07/11/21 19:34 Albumin 3.4 g/dL (3.9-5) L 07/11/21 19:34 Albumin/Globulin Ratio 0.9 % 07/11/21 19:34 Urine Color Red (Yellow) 07/12/21 Unknown Urine Turbidity Cloudy (Clear) 07/12/21 Unknown Urine pH 6.0 (5.0-7.0) 07/12/21 Unknown Ur Specific [place] 1.017 (1.003-1.030) 07/12/21 Unknown Urine Protein 100 mg/dl mg/dL (Negative) 07/12/21 Unknown Urine Glucose (UA) Neg mg/dL (Negative) 07/12/21 Unknown Urine Ketones Tr mg/dL (Negative) 07/12/21 Unknown Urine Blood Lg (Negative) 07/12/21 Unknown Urine Nitrite Neg (Negative) 07/12/21 Unknown Urine Bilirubin Neg (Negative) 07/12/21 Unknown Urine Urobilinogen < 2.0 mg/dL (<2.0) 07/12/21 Unknown Ur Leukocyte Esterase Mod (Negative) 07/12/21 Unknown Urine WBC (Auto) 23.0 /HPF (0.0-6.0) H 07/12/21 Unknown Urine RBC (Auto) 38.0 /HPF (0.0-6.0) 07/12/21 Unknown U Epithel Cells (Auto) 3.0 /HPF (0-13.0) 07/12/21 Unknown Urine Bacteria (Auto) 2+ /HPF (Negative) 07/12/21 Unknown Urine Mucus Few /HPF 07/12/21 Unknown Microbiology: Microbiology 07/12/21 Unknown Urine,Clean Catch Urine Culture - Final 07/12/21 01:47 Peripheral/Venous Blood Culture - Preliminary NO GROWTH AFTER 24 HOURS 07/12/21 00:54 Peripheral/Venous Blood Culture - Preliminary NO GROWTH AFTER 24 HOURS [place]/IV: Voiding Method Incontinent Active Medications - Current Medications Current Medications: Generic Name Dose Route Start Last Admin Trade Name Freq PRN Reason Stop Dose Admin Acetaminophen 650 mg 07/12/21 03:12 Acetaminophen 325 Mg Tab PO Q4H PRN Pain MILD(1-3)/Fever >100.5/CHENG Albuterol 2.5 mg 07/12/21 03:12 Albuterol 2.5 Mg/3 Ml Nebu IH Q3HRT PRN Shortness Of Breath Albuterol/Ipratropium 1 ampul 07/12/21 08:00 07/13/21 20:43 Ipratropium/Albuterol Sulfate 3 Ml Ampul.Neb IH 1 ampul Q6HRT SWATI Administration Arformoterol Tartrate 15 mcg 07/13/21 20:00 07/13/21 20:39 Arformoterol 15 Mcg/2 Ml Nebu IH 15 mcg Q12HRT [facility] Administration Budesonide 1 mg 07/13/21 20:00 07/13/21 20:39 Budesonide 0.5 Mg/2 Ml Nebu IH 0.5 mg Q12HRT [facility] Administration Divalproex Sodium 250 mg 07/13/21 18:00 Divalproex Sprinkle 125 Mg Cap PO Q12H [facility] Famotidine 20 mg 07/12/21 10:00 07/13/21 09:43 Famotidine 20 Mg Tab PO 20 mg BID [facility] Administration Fenofibrate 145 mg 07/14/21 10:00 Fenofibrate 145 Mg Tab PO DAILY [facility] Lisinopril 5 mg 07/14/21 10:00 Lisinopril 5 Mg Tab PO QDAY [facility] Melatonin 5 mg 07/13/21 22:00 Melatonin 5 Mg Tab PO QHS [facility] Metoprolol Tartrate 25 mg 07/13/21 22:00 Metoprolol Tartrate 25 Mg Tab PO BID [facility] Ondansetron HCl 4 mg 07/12/21 03:12 Ondansetron 4 Mg/2 Ml Inj IV Q8H PRN Nausea And Vomiting Pantoprazole Sodium 20 mg 07/14/21 10:00 Pantoprazole 20 Mg Tab PO QDAY [facility] Pravastatin Sodium 40 mg 07/13/21 22:00 Pravastatin 40 Mg Tab PO QHS [facility] Senna/Docusate Sodium 1 tab 07/13/21 22:00 Sennosides/Docusate Sodium 8.6/50 Mg Tab PO BID [facility] Sodium Chloride 10 ml 07/12/21 10:00 07/13/21 09:43 Sodium Chloride 0.9% 10 Ml Flush Syringe IV 10 ml BID [facility] Administration Sodium Chloride 10 ml 07/12/21 03:12 Sodium Chloride 0.9% 10 Ml Flush Syringe IV PRN PRN LINE FLUSH Trazodone HCl 50 mg 07/13/21 22:00 Trazodone 50 Mg Tab PO QHS [facility]
[2021-07-13] MEDS: PRAVASTATIN 40 MG TAB PO SCH (21:07)
[2021-07-13] MEDS: MELATONIN 5 MG TAB PO SCH (21:07)
[2021-07-13] MEDS: traZODone 50 MG TAB PO SCH (21:07)
[2021-07-13] MEDS: METOPROLOL TARTRATE 25 MG TAB PO SCH (21:07)
[2021-07-13] MEDS: SENNOSIDES/DOCUSATE SODIUM 8.6/50 MG TAB PO SCH (21:12)
[2021-07-13] MEDS: DIVALPROEX SPRINKLE 125 MG CAP PO SCH ×2 (21:12→22:40)
[2021-07-13] MEDS ORDERED: NON-FORMULARY EACH (Simvastatin [Simvastatin] 20 MG Tablet) PO SCH (22:00)
[2021-07-13] MEDS ORDERED: NON-FORMULARY EACH (Melatonin [Melatonin 3mg Tab] 3 MG Tablet) PO SCH (22:00)
[2021-07-14] MEDS: DIVALPROEX SPRINKLE 125 MG CAP PO SCH ×2 (05:38→18:54)
[2021-07-14 07:28] LABS: Basophils # (Auto) 0.1 K/mm3 (0.0-0.1); Basophils % (Auto) 0.8 % (0.0-1.8); Eosinophils # (Auto) 0.2 K/mm3 (0.0-0.4); Eosinophils % (Auto) 2.2 % (0.0-4.3); Hematocrit 37.2 % (30.3-42.9); Hemoglobin 11.9 gm/dl (10.1-14.3); Lymphocytes # (Auto) 1.5 K/mm3 (1.2-5.4); Lymphocytes % (Auto) 18.8 % (13.4-35.0); Mean Corpuscular HGB Conc 32 % (30-34); Mean Corpuscular Volume 92 fl (79-97); Monocytes # (Auto) 0.8 K/mm3 (0.0-0.8); Monocytes % (Auto) 10.4 % (0.0-7.3); Platelet Count 351 K/mm3 (140-440); Red Blood Count 4.06 M/mm3 (3.65-5.03); Red Cell Distribution Width 15.2 % (13.2-15.2)
[2021-07-14] MEDS: FENOFIBRATE 145 MG TAB PO SCH (09:40)
[2021-07-14] MEDS: FAMOTIDINE 20 MG TAB PO SCH ×2 (09:40→21:31)
[2021-07-14] MEDS: PANTOPRAZOLE 20 MG TAB PO SCH (09:40)
[2021-07-14] MEDS: SENNOSIDES/DOCUSATE SODIUM 8.6/50 MG TAB PO SCH ×2 (09:40→21:31)
[2021-07-14] MEDS: METOPROLOL TARTRATE 25 MG TAB PO SCH ×2 (09:41→21:31)
[2021-07-14] MEDS: LISINOPRIL 5 MG TAB PO SCH (09:41)
[2021-07-14] MEDS: ARFORMOTEROL 15 MCG/2 ML NEBU IH SCH ×2 (09:55→21:02)
[2021-07-14] MEDS: BUDESONIDE 0.5 MG/2 ML NEBU IH SCH ×2 (09:55→21:03)
[2021-07-14] MEDS ORDERED: NON-FORMULARY EACH (Fenofibrate [Fenofibrate] 160 MG Tablet) PO SCH (10:00)
[2021-07-14] MEDS ORDERED: NON-FORMULARY EACH (Omeprazole [Omeprazole] 20 MG Tablet.Dr) PO SCH (10:00)
[2021-07-14] MEDS ORDERED: ENALAPRIL MALEATE 5 MG PO SCH (10:00)
--- NOTE | 2021-07-14 10:03 | Electrocardiograph Report ---
[facility] Test Date: 2021-07-13 Test Time: 12:11:06 Pat Name: KULDIP CLINTON Department: Room: A486 1 Gender: F Computer Teacher: NURSE : 1955 Requested By: SB GONSALVES Order Number: [id number] Reading MD: Jim Astorga Measurements Intervals [place] Rate: 112 P: 51 ME: 150 QRS: -22 QRSD: 98 T: 34 QT: 322 QTc: 441 Interpretive Statements Sinus tachycardia No previous ECG available for comparison Electronically Signed On 07-14-2021 10:02:35 EST by Jim Astorga
--- NOTE | 2021-07-14 11:37 | Consultation ---
History of Present Illness - Reason for Consult Consult date: 07/14/21 Reason for consult: MHE - History of Present Psychiatric Illness The patient was seen today. She is a 66y/o female patient who presented to the ER from a local shelter for vag bleeding and "passing clots." The patient says she was "started on a blood thinner that started it." She is a/o x 4. She is calm, cooperative and polite. The patient does have periods of confusion. She says she lives with her daughter, but it is documented the patient resides at a shelter. She denies recent history of psychiatric disorders. The patient says she saw a psychiatrist in 1999 after her walked out and she "spiraled out of control." She denies being on any psych meds or and SI/HI. The patient denies hallucinations at present, but says "at times I did, but I think it was because of all of this going on." She says "this sickness had me down and like this." The patient says she has two daughters, grand kids and a son-in-law. She says overall she "feels great now that this is situated." The patient says she sleeps fine and she denies any problems with her appetite. PAST PSYCHIATRIC HISTORY: Diagnoses: Depression Suicide attempts or Self-harm behavior: No Prior psychiatric hospitalizations: Denies Substance Abuse history: Denies Previous psychiatric medications tried: Denies Outpatient treatment: Denies PAST MEDICAL HISTORY: None reported Family Psychiatric History: None reported or documented SOCIAL HISTORY Marital Status: Single Living Arrangements: [place] Employment Status: Disabled Access to guns/weapons: Denies Education: History of Abuse: Denies Legal History: Denies REVIEW OF SYSTEMS Constitutional: Negative for weight loss ENT: Negative for stridor Respiratory: Negative for cough or hemoptysis All other systems reviewed and are negative MENTAL STATUS EXAMINATION General Appearance and Behavior: Age appropriate, good hygiene, wearing appropriate clothes. calm, polite, cooperative Cooperation: Cooperative Psychomotor Behavior: Psychomotor normal Mood: great Affect and affective range: congruent with stated mood Thought Process: goal directed Thought Content: none Speech: Normal tone and pace Suicidal Ideation: Denies Homicidal Ideation: Denies Hallucinations: Denies Delusions: None elicited Impulse Control: Normal Insight and Judgment: Limited insight and fair judgment Memory: Limited Attention: attentive Orientation: a/o x 4 Assessment (1)Mental Health Evaluation Current Visit: Yes Status: Acute Treatment Plan No meds at this time Medical: Per primary Disposition: Do not recommend acute psychiatric inpatient treatment Will sign off. Thanks Case staffed with Dr. Fitzgerald Medications and Allergies Allergies Allergy/AdvReac Type Severity Reaction Status Date / Time No Known Allergies Allergy Verified 07/12/21 08:57 Home Medications Medication Instructions Recorded Confirmed Last Taken Type Acetaminophen [Non-Aspirin Extra 1,000 mg PO Q6HR PRN 07/12/21 07/12/21 Unknown History Strength] Albuterol Mdi (or & Nicu Only) 2 puff IH Q4H PRN 07/12/21 07/12/21 Unknown His tory [ProAir HFA Inhaler] Apixaban [Eliquis] 2.5 mg PO BID 07/12/21 07/12/21 Unknown History Benzonatate [Tessalon Perles] 100 mg PO TID PRN 07/12/21 07/12/21 Unknown History Budesonide/Formoterol Fumarate 2 puff IH Q12H 07/12/21 07/12/21 Unknown History [Symbicort 160-4.5 Mcg Inhaler] Divalproex Sprinkle [Depakote 250 mg PO Q12H 07/12/21 07/12/21 Unknown History Sprinkle] Enalapril Maleate [Vasotec] 5 mg PO QDAY 07/12/21 07/12/21 Unknown History Fenofibrate 160 mg PO QDAY 07/12/21 07/12/21 Unknown History Melatonin [Melatonin 3MG TAB] 3 mg PO QHS 07/12/21 07/12/21 Unknown History Metoprolol [Lopressor TAB] 25 mg PO BID 07/12/21 07/12/21 Unknown History Omeprazole 20 mg PO QDAY 07/12/21 07/12/21 Unknown History Sennosides/Docusate Sodium 1 tab PO BID 07/12/21 07/12/21 Unknown History [Docusate Sodium-Senna Tablet] Simvastatin 20 mg PO QHS 07/12/21 07/12/21 Unknown History traZODone [Desyrel] 50 mg PO QHS 07/12/21 07/12/21 Unknown History Active Meds: Active Medications Acetaminophen (Acetaminophen 325 Mg Tab) 650 mg PO Q4H PRN PRN Reason: Pain MILD(1-3)/Fever >100.5/CHENG Albuterol (Albuterol 2.5 Mg/3 Ml Nebu) 2.5 mg IH Q3HRT PRN PRN Reason: Shortness Of Breath Albuterol/Ipratropium (Ipratropium/Albuterol Sulfate 3 Ml Ampul.Neb) 1 ampul IH Q6HRT [facility] Last Admin: 07/13/21 20:43 Dose: 1 ampul Arformoterol Tartrate (Arformoterol 15 Mcg/2 Ml Nebu) 15 mcg IH Q12HRT [facility] Last Admin: 07/13/21 20:39 Dose: 15 mcg Budesonide (Budesonide 0.5 Mg/2 Ml Nebu) 1 mg IH Q12HRT [facility] Last Admin: 07/13/21 20:39 Dose: 0.5 mg Divalproex Sodium (Divalproex Sprinkle 125 Mg Cap) 250 mg PO Q12H [facility] Last Admin: 07/14/21 05:38 Dose: 250 mg Famotidine (Famotidine 20 Mg Tab) 20 mg PO BID [facility] Last Admin: 07/14/21 09:40 Dose: 20 mg Fenofibrate (Fenofibrate 145 Mg Tab) 145 mg PO DAILY [facility] Last Admin: 07/14/21 09:40 Dose: 145 mg Lisinopril (Lisinopril 5 Mg Tab) 5 mg PO QDAY [facility] Last Admin: 07/14/21 09:41 Dose: 5 mg Melatonin (Melatonin 5 Mg Tab) 5 mg PO QHS [facility] Last Admin: 07/13/21 21:07 Dose: 5 mg Metoprolol Tartrate (Metoprolol Tartrate 25 Mg Tab) 25 mg PO BID [facility] Last Admin: 07/14/21 09:41 Dose: 25 mg Ondansetron HCl (Ondansetron 4 Mg/2 Ml Inj) 4 mg IV Q8H PRN PRN Reason: Nausea And Vomiting Pantoprazole Sodium (Pantoprazole 20 Mg Tab) 20 mg PO QDAY [facility] Last Admin: 07/14/21 09:40 Dose: 20 mg Pravastatin Sodium (Pravastatin 40 Mg Tab) 40 mg PO QHS [facility] Last Admin: 07/13/21 21:07 Dose: 40 mg Senna/Docusate Sodium (Sennosides/Docusate Sodium 8.6/50 Mg Tab) 1 tab PO BID [facility] Last Admin: 07/14/21 09:40 Dose: 1 tab Sodium Chloride (Sodium Chloride 0.9% 10 Ml Flush Syringe) 10 ml IV BID [facility] Last Admin: 07/14/21 09:41 Dose: 10 ml Sodium Chloride (Sodium Chloride 0.9% 10 Ml Flush Syringe) 10 ml IV PRN PRN PRN Reason: LINE FLUSH Trazodone HCl (Trazodone 50 Mg Tab) 50 mg PO QHS [facility] Last Admin: 07/13/21 21:07 Dose: 50 mg Mental Status Exam - Vital signs Last Vital Signs Temp 98.3 F 07/14/21 08:10 Pulse 104 H 07/14/21 08:10 Resp 18 07/14/21 11:00 BP 147/86 07/14/21 08:10 Pulse Ox 97 07/14/21 11:00 Results Result Diagrams: 07/14/21 06:51 07/13/21 05:56 Abnormal lab results 07/14/21 07/14/21 Range/Units 06:51 06:51 [place] % (Auto) 10.4 H (0.0-7.3) % Free T4 1.62 H (0.76-1.46) ng/dL All other labs normal.
[2021-07-14] MEDS: IPRATROPIUM/ALBUTEROL SULFATE 3 ML AMPUL.NEB IH SCH ×3 (16:04→21:02)
--- NOTE | 2021-07-14 18:35 | Progress Note ---
Hospitalist Physical - Constitutional Vitals: Temp Pulse Resp BP Pulse Ox 98.3 F 99 H 20 148/92 92 07/14/21 12:07 07/14/21 12:07 07/14/21 12:07 07/14/21 12:07 07/14/21 12:07 General appearance: Present: no acute distress, obese (Severe obesity, BMI 55.) Results - Labs CBC & Chem 7: 07/14/21 06:51 07/13/21 05:56 Labs: Laboratory Last Values WBC 8.0 K/mm3 (4.5-11.0) 07/14/21 06:51 RBC 4.06 M/mm3 (3.65-5.03) 07/14/21 06:51 Hgb 11.9 gm/dl (10.1-14.3) 07/14/21 06:51 Hct 37.2 % (30.3-42.9) 07/14/21 06:51 MCV 92 fl (79-97) 07/14/21 06:51 MCH 29 pg (28-32) 07/14/21 06:51 MCHC 32 % (30-34) 07/14/21 06:51 RDW 15.2 % (13.2-15.2) 07/14/21 06:51 Plt Count 351 K/mm3 (140-440) 07/14/21 06:51 Lymph % (Auto) 18.8 % (13.4-35.0) 07/14/21 06:51 [place] % (Auto) 10.4 % (0.0-7.3) H 07/14/21 06:51 Eos % (Auto) 2.2 % (0.0-4.3) 07/14/21 06:51 Baso % (Auto) 0.8 % (0.0-1.8) 07/14/21 06:51 Lymph # (Auto) 1.5 K/mm3 (1.2-5.4) 07/14/21 06:51 [place] # (Auto) 0.8 K/mm3 (0.0-0.8) 07/14/21 06:51 Eos # (Auto) 0.2 K/mm3 (0.0-0.4) 07/14/21 06:51 Baso # (Auto) 0.1 K/mm3 (0.0-0.1) 07/14/21 06:51 Seg Neutrophils % 67.8 % (40.0-70.0) 07/14/21 06:51 Seg Neutrophils # 5.4 K/mm3 (1.8-7.7) 07/14/21 06:51 PT 15.2 Sec. (12.2-14.9) H 07/13/21 05:56 INR 1.08 (0.87-1.13) 07/13/21 05:56 APTT 28.4 Sec. (24.2-36.6) 07/11/21 19:34 Sodium 137 mmol/L (137-145) 07/13/21 05:56 Potassium 3.9 mmol/L (3.6-5.0) 07/13/21 05:56 Chloride 99.5 mmol/L (98-107) 07/13/21 05:56 Carbon Dioxide 24 mmol/L (22-30) 07/13/21 05:56 Anion Gap 17 mmol/L 07/13/21 05:56 BUN 16 mg/dL (7-17) 07/13/21 05:56 Creatinine 0.6 mg/dL (0.6-1.2) 07/13/21 05:56 Estimated GFR > 60 ml/min 07/13/21 05:56 BUN/Creatinine Ratio 27 % 07/13/21 05:56 Glucose 103 mg/dL (65-100) H 07/13/21 05:56 Calcium 9.0 mg/dL (8.4-10.2) 07/13/21 05:56 Total Bilirubin 0.40 mg/dL (0.1-1.2) 07/11/21 19:34 AST 26 units/L (5-40) 07/11/21 19:34 ALT 20 units/L (7-56) 07/11/21 19:34 Alkaline Phosphatase 37 units/L (35-129) 07/11/21 19:34 NT-Pro-B Natriuret Pep 274.1 pg/mL (0-900) 07/14/21 06:51 Total Protein 7.2 g/dL (6.3-8.2) 07/11/21 19:34 Albumin 3.4 g/dL (3.9-5) L 07/11/21 19:34 Albumin/Globulin Ratio 0.9 % 07/11/21 19:34 TSH 3.060 mlU/mL (0.270-4.200) 07/14/21 06:51 Free T4 1.62 ng/dL (0.76-1.46) H 07/14/21 06:51 Urine Color Red (Yellow) 07/12/21 Unknown Urine Turbidity Cloudy (Clear) 07/12/21 Unknown Urine pH 6.0 (5.0-7.0) 07/12/21 Unknown Ur Specific [place] 1.017 (1.003-1.030) 07/12/21 Unknown Urine Protein 100 mg/dl mg/dL (Negative) 07/12/21 Unknown Urine Glucose (UA) Neg mg/dL (Negative) 07/12/21 Unknown Urine Ketones Tr mg/dL (Negative) 07/12/21 Unknown Urine Blood Lg (Negative) 07/12/21 Unknown Urine Nitrite Neg (Negative) 07/12/21 Unknown Urine Bilirubin Neg (Negative) 07/12/21 Unknown Urine Urobilinogen < 2.0 mg/dL (<2.0) 07/12/21 Unknown Ur Leukocyte Esterase Mod (Negative) 07/12/21 Unknown Urine WBC (Auto) 23.0 /HPF (0.0-6.0) H 07/12/21 Unknown Urine RBC (Auto) 38.0 /HPF (0.0-6.0) 07/12/21 Unknown U Epithel Cells (Auto) 3.0 /HPF (0-13.0) 07/12/21 Unknown Urine Bacteria (Auto) 2+ /HPF (Negative) 07/12/21 Unknown Urine Mucus Few /HPF 07/12/21 Unknown Microbiology: Microbiology 07/12/21 01:47 Peripheral/Venous Blood Culture - Preliminary NO GROWTH AFTER 48 HOURS 07/12/21 00:54 Peripheral/Venous Blood Culture - Preliminary NO GROWTH AFTER 48 HOURS Lott/IV: Voiding Method External Female Catheter Active Medications - Current Medications Current Medications: Generic Name Dose Route Start Last Admin Trade Name Freq PRN Reason Stop Dose Admin Acetaminophen 650 mg 07/12/21 03:12 Acetaminophen 325 Mg Tab PO Q4H PRN Pain MILD(1-3)/Fever >100.5/CHENG Albuterol 2.5 mg 07/12/21 03:12 Albuterol 2.5 Mg/3 Ml Nebu IH Q3HRT PRN Shortness Of Breath Albuterol/Ipratropium 1 ampul 07/12/21 08:00 07/14/21 16:10 Ipratropium/Albuterol Sulfate 3 Ml Ampul.Neb IH Not Given Q6HRT [facility] Arformoterol Tartrate 15 mcg 07/13/21 20:00 07/14/21 09:55 Arformoterol 15 Mcg/2 Ml Nebu IH Not Given Q12HRT [facility] Budesonide 1 mg 07/13/21 20:00 07/14/21 09:55 Budesonide 0.5 Mg/2 Ml Nebu IH Not Given Q12HRT [facility] Divalproex Sodium 250 mg 07/13/21 18:00 07/14/21 05:38 Divalproex Sprinkle 125 Mg Cap PO 250 mg Q12H [facility] Administration Famotidine 20 mg 07/12/21 10:00 07/14/21 09:40 Famotidine 20 Mg Tab PO 20 mg BID [facility] Administration Fenofibrate 145 mg 07/14/21 10:00 07/14/21 09:40 Fenofibrate 145 Mg Tab PO 145 mg DAILY [facility] Administration Lisinopril 5 mg 07/14/21 10:00 07/14/21 09:41 Lisinopril 5 Mg Tab PO 5 mg QDAY [facility] Administration Melatonin 5 mg 07/13/21 22:00 07/13/21 21:07 Melatonin 5 Mg Tab PO 5 mg QHS [facility] Administration Metoprolol Tartrate 25 mg 07/13/21 22:00 07/14/21 09:41 Metoprolol Tartrate 25 Mg Tab PO 25 mg BID [facility] Administration Ondansetron HCl 4 mg 07/12/21 03:12 Ondansetron 4 Mg/2 Ml Inj IV Q8H PRN Nausea And Vomiting Pantoprazole Sodium 20 mg 07/14/21 10:00 07/14/21 09:40 Pantoprazole 20 Mg Tab PO 20 mg QDAY [facility] Administration Pravastatin Sodium 40 mg 07/13/21 22:00 07/13/21 21:07 Pravastatin 40 Mg Tab PO 40 mg QHS [facility] Administration Senna/Docusate Sodium 1 tab 07/13/21 22:00 07/14/21 09:40 Sennosides/Docusate Sodium 8.6/50 Mg Tab PO 1 tab BID [facility] Administration Sodium Chloride 10 ml 07/12/21 10:00 07/14/21 09:41 Sodium Chloride 0.9% 10 Ml Flush Syringe IV 10 ml BID [facility] Administration Sodium Chloride 10 ml 07/12/21 03:12 Sodium Chloride 0.9% 10 Ml Flush Syringe IV PRN PRN LINE FLUSH Trazodone HCl 50 mg 07/13/21 22:00 07/13/21 21:07 Trazodone 50 Mg Tab PO 50 mg QHS [facility] Administration
[2021-07-14] MEDS: traZODone 50 MG TAB PO SCH (21:30)
[2021-07-14] MEDS: MELATONIN 5 MG TAB PO SCH (21:31)
[2021-07-14] MEDS: PRAVASTATIN 40 MG TAB PO SCH (21:31)
[2021-07-15] MEDS: DIVALPROEX SPRINKLE 125 MG CAP PO SCH ×2 (05:07→20:18)
[2021-07-15] MEDS: BUDESONIDE 0.5 MG/2 ML NEBU IH SCH ×3 (10:06→22:17)
[2021-07-15] MEDS: IPRATROPIUM/ALBUTEROL SULFATE 3 ML AMPUL.NEB IH SCH ×4 (10:06→22:17)
[2021-07-15] MEDS: ARFORMOTEROL 15 MCG/2 ML NEBU IH SCH ×3 (10:06→22:17)
[2021-07-15] MEDS: METOPROLOL TARTRATE 25 MG TAB PO SCH ×2 (10:36→22:46)
[2021-07-15] MEDS: LISINOPRIL 5 MG TAB PO SCH (10:36)
[2021-07-15] MEDS: PANTOPRAZOLE 20 MG TAB PO SCH (10:36)
[2021-07-15] MEDS: SENNOSIDES/DOCUSATE SODIUM 8.6/50 MG TAB PO SCH ×2 (10:36→22:46)
[2021-07-15] MEDS: FENOFIBRATE 145 MG TAB PO SCH (10:36)
[2021-07-15] MEDS: FAMOTIDINE 20 MG TAB PO SCH ×2 (10:36→22:46)
--- NOTE | 2021-07-15 20:19 | Progress Note ---
Assessment and Plan Assessment and plan: 66-year-old female with history of severe obesity with BMI 55, mild dementia dementia, obstructive sleep apnea, CHF, hypertension and fully ambulatory was living with her daughter when she was admitted to [facility] hospital couple of weeks ago in 06/2021 and was diagnosed with the COVID-19 pneumonia, UTI and bloodstream infection and was discharged to subacute rehab on IV antibiotics and on Eliquis for high D-dimer likely related to brought in by EMS from her [facility] due to vaginal bleeding which has been ongoing for 2 weeks. Records with patient and daughter patient had no menses for for couple of years and then menses resumed about years ago but patient did not get this evaluated. According daughter, menses are sometimes heavy. Patient is sent to ED for evaluation since having bleeding for 2 weeks with passed some clots. Some menstrual type of abdominal cramps but denies any sig nificant abdominal pain. She also denies any associated headache/vision change, neck pain, chest pain, shortness of breath, nausea/vomiting, dysuria, melena/hematochezia, or any other complaints. She has history of heart failure and there was seeing for several years then quit seeing him many years ago. In the ER patient hemoglobin is 13.5 and hematocrit 41.6. WBC 7.7, PT is 15.3 INR 1.09. Urine suggestive of UTI. Patient has no fever or chills. Subsequently Case discussed with on-call DIRECTOR [employer] doctor who recommends to admit under hospitalist service and she will consult the patient. (1) uterine bleeding with history of menses after a gap, age 66 years Worse since placed on Eliquis Current Visit: Yes Status: Acute Plan to address problem: Currently no vaginal bleeding off Eliquis which was started recently for elevated D-Dimer in the setting of acute COVID-19 infection. However, no documented thromboembolism in the medical records obtained from [facility]. pelvic examination performed by DIRECTOR [employer] revealed dark blood on glove. Patient denies abdominal pains or cramping. Patient reports having menses since 2 years after interruption for a couple of years. Not previously worked up by DIRECTOR [employer]IT[employer]. CT abdomen/pelvis shows minimally prominent endometrium and a calcified fibroid. Vaginal ultrasound shows borderline endometrial thickness, 0.55 Centimeters, fibroid, right ovary surgically absent. ovary is obscured by bowel gas. Urinary bladder unremarkable. Patient denies dizziness, lightheadedness, chest pains or palpitations. DIRECTOR [employer] recommends endometrial biopsy if endometrial thickness is more than 1 cm. Patient could be followed as outpatient. Hemoglobin and BP stable. (2) Anticoagulated with Eliquis Current Visit: Yes Status: Acute Plan to address problem: We hold anticoagulation Eliquis for now. Vaginal bleeding almost stopped. Indication for Eliquis started recently is for elevated D-Dimer in the setting of acute COVID-19 infection. However, no documented thromboembolism in the medical records obtained from [facility]. Risks appear to be higher than the benefits of anticoagulation in the absence of demonstrable as patient is having significant uterine bleeding with anticoagulation. (3) recently treated UTI with bacteremia, current urine cultures grew skin dottie Current Visit: Yes Status: Acute Plan to address problem: Patient was recently diagnosed with UTI and bacteremia at [facility] and sent home on IV antibiotics. Currently has no fever, dysuria. Empirically started on Rocephin Rocephin 2 g IV daily. Blood culture negative. Urine culture grew skin dottie. Discontinue Rocephin. Pelvic ultrasound shows unremarkable urinary bladder. Bedside bladder scan shows no urinary retention. (4) GERD (gastroesophageal reflux disease) Current Visit: Yes Status: Acute Plan to address problem: Pepcid 20 mg p.o. twice daily for GI prophylaxis. We will continue the home medication (5) mild dementia Current Visit: Yes Status: Acute Plan to address problem: Stable. Patient alert and oriented and answers to questions appropriately. She does get occasionally confused as described by her daughter. We will continue home medication (6) Hypertension Current Visit: Yes Status: Acute Plan to address problem: Hydralazine 10 mg IV every 6 hours as needed. We will continue the home medication. We will monitor the blood pressure closely (7) severe obesity, BMI 55, obstructive sleep apnea Current Visit: Yes Status: Acute Plan to address problem: Oxygen via nasal cannula 3 L/min. DuoNeb by nebulizer every 4 hours. Outpatient sleep study (8) remote history of heart failure Current Visit: Yes Status: Acute Plan to address problem: Patient was seeing a meat curer, Dr. Larose for several years but then quit seeing him many years ago. Currently appears to be euvolemic. Has mild sinus tachycardia but baseline rate unknown. (9) Uterine fibroid Current Visit: Yes Status: Acute Plan to address problem: Seen on CT on the ultrasound. PIPE FITTER MARINE will see the patient in consultation. Recheck CBC in the morning (10) DVT prophylaxis Current Visit: Yes Status: Acute Plan to address problem: SCD for DVT prophylaxis. Pepcid 20 mg p.o. twice daily for GI prophylaxis. Patient is a full code Discussed with the patient, nursing staff, her daughter as well as DIRECTOR [employer]. Discharge disposition: Patient is stable for discharge pending penitentiary placement. Daughter refuses to take her back home stating she is unable to care for her anymore. Daughter is refusing to talk to patient. Patient is poorly ambulatory. History Interval history: Patient is alert and oriented. Currently no vaginal bleeding. Eliquis discontinued. She is tolerating diet. Afebrile. BP and hemoglobin stable. BP and hemoglobin stable. Discharge is on hold pending penitentiary placement. Daughter refused to take her home. Hospitalist Physical - Constitutional Vitals: Temp Pulse Resp BP Pulse Ox 98.7 F 95 H 18 127/78 96 07/15/21 19:36 07/15/21 19:36 07/15/21 19:36 07/15/21 19:36 07/15/21 19:36 General appearance: Present: no acute distress, obese (Severe obesity, BMI 55.) - EENT Eyes: Present: PERRL, EOM intact ENT: hearing intact, clear oral mucosa - Neck Neck: Present: supple - Respiratory Respiratory effort: normal Respiratory: bilateral: CTA - Cardiovascular Rhythm: regular - Extremities Extremity abnormal: edema - Abdominal General gastrointestinal: soft, non-tender - Integumentary Integumentary: Absent: rash - Psychiatric Psychiatric: cooperative, other (Anxious) - Neurologic Neurologic: no focal deficits, moves all extremities Results - Labs CBC & Chem 7: 07/14/21 06:51 07/13/21 05:56 Labs: Laboratory Last Values WBC 8.0 K/mm3 (4.5-11.0) 07/14/21 06:51 RBC 4.06 M/mm3 (3.65-5.03) 07/14/21 06:51 Hgb 11.9 gm/dl (10.1-14.3) 07/14/21 06:51 Hct 37.2 % (30.3-42.9) 07/14/21 06:51 MCV 92 fl (79-97) 07/14/21 06:51 MCH 29 pg (28-32) 07/14/21 06:51 MCHC 32 % (30-34) 07/14/21 06:51 RDW 15.2 % (13.2-15.2) 07/14/21 06:51 Plt Count 351 K/mm3 (140-440) 07/14/21 06:51 Lymph % (Auto) 18.8 % (13.4-35.0) 07/14/21 06:51 [place] % (Auto) 10.4 % (0.0-7.3) H 07/14/21 06:51 Eos % (Auto) 2.2 % (0.0-4.3) 07/14/21 06:51 Baso % (Auto) 0.8 % (0.0-1.8) 07/14/21 06:51 Lymph # (Auto) 1.5 K/mm3 (1.2-5.4) 07/14/21 06:51 [place] # (Auto) 0.8 K/mm3 (0.0-0.8) 07/14/21 06:51 Eos # (Auto) 0.2 K/mm3 (0.0-0.4) 07/14/21 06:51 Baso # (Auto) 0.1 K/mm3 (0.0-0.1) 07/14/21 06:51 Seg Neutrophils % 67.8 % (40.0-70.0) 07/14/21 06:51 Seg Neutrophils # 5.4 K/mm3 (1.8-7.7) 07/14/21 06:51 PT 15.2 Sec. (12.2-14.9) H 07/13/21 05:56 INR 1.08 (0.87-1.13) 07/13/21 05:56 APTT 28.4 Sec. (24.2-36.6) 07/11/21 19:34 Sodium 137 mmol/L (137-145) 07/13/21 05:56 Potassium 3.9 mmol/L (3.6-5.0) 07/13/21 05:56 Chloride 99.5 mmol/L (98-107) 07/13/21 05:56 Carbon Dioxide 24 mmol/L (22-30) 07/13/21 05:56 Anion Gap 17 mmol/L 07/13/21 05:56 BUN 16 mg/dL (7-17) 07/13/21 05:56 Creatinine 0.6 mg/dL (0.6-1.2) 07/13/21 05:56 Estimated GFR > 60 ml/min 07/13/21 05:56 BUN/Creatinine Ratio 27 % 07/13/21 05:56 Glucose 103 mg/dL (65-100) H 07/13/21 05:56 Calcium 9.0 mg/dL (8.4-10.2) 07/13/21 05:56 Total Bilirubin 0.40 mg/dL (0.1-1.2) 07/11/21 19:34 AST 26 units/L (5-40) 07/11/21 19:34 ALT 20 units/L (7-56) 07/11/21 19:34 Alkaline Phosphatase 37 units/L (35-129) 07/11/21 19:34 NT-Pro-B Natriuret Pep 274.1 pg/mL (0-900) 07/14/21 06:51 Total Protein 7.2 g/dL (6.3-8.2) 07/11/21 19:34 Albumin 3.4 g/dL (3.9-5) L 07/11/21 19:34 Albumin/Globulin Ratio 0.9 % 07/11/21 19:34 TSH 3.060 mlU/mL (0.270-4.200) 07/14/21 06:51 Free T4 1.62 ng/dL (0.76-1.46) H 07/14/21 06:51 Urine Color Red (Yellow) 07/12/21 Unknown Urine Turbidity Cloudy (Clear) 07/12/21 Unknown Urine pH 6.0 (5.0-7.0) 07/12/21 Unknown Ur Specific [place] 1.017 (1.003-1.030) 07/12/21 Unknown Urine Protein 100 mg/dl mg/dL (Negative) 07/12/21 Unknown Urine Glucose (UA) Neg mg/dL (Negative) 07/12/21 Unknown Urine Ketones Tr mg/dL (Negative) 07/12/21 Unknown Urine Blood Lg (Negative) 07/12/21 Unknown Urine Nitrite Neg (Negative) 07/12/21 Unknown Urine Bilirubin Neg (Negative) 07/12/21 Unknown Urine Urobilinogen < 2.0 mg/dL (<2.0) 07/12/21 Unknown Ur Leukocyte Esterase Mod (Negative) 07/12/21 Unknown Urine WBC (Auto) 23.0 /HPF (0.0-6.0) H 07/12/21 Unknown Urine RBC (Auto) 38.0 /HPF (0.0-6.0) 07/12/21 Unknown U Epithel Cells (Auto) 3.0 /HPF (0-13.0) 07/12/21 Unknown Urine Bacteria (Auto) 2+ /HPF (Negative) 07/12/21 Unknown Urine Mucus Few /HPF 07/12/21 Unknown Microbiology: Microbiology 07/12/21 01:47 Peripheral/Venous Blood Culture - Preliminary NO GROWTH AFTER 72 HOURS 07/12/21 00:54 Peripheral/Venous Blood Culture - Preliminary NO GROWTH AFTER 72 HOURS Lott/IV: Voiding Method External Female Catheter Active Medications - Current Medications Current Medications: Generic Name Dose Route Start Last Admin Trade Name Freq PRN Reason Stop Dose Admin Acetaminophen 650 mg 07/12/21 03:12 Acetaminophen 325 Mg Tab PO Q4H PRN Pain MILD(1-3)/Fever >100.5/CHENG Albuterol 2.5 mg 07/12/21 03:12 Albuterol 2.5 Mg/3 Ml Nebu IH Q3HRT PRN Shortness Of Breath Albuterol/Ipratropium 1 ampul 07/15/21 08:00 07/15/21 16:14 Ipratropium/Albuterol Sulfate 3 Ml Ampul.Neb IH Not Given TIDRT SWATI Arformoterol Tartrate 15 mcg 07/13/21 20:00 07/15/21 10:06 Arformoterol 15 Mcg/2 Ml Nebu IH Not Given Q12HRT SWATI Budesonide 1 mg 07/13/21 20:00 07/15/21 10:06 Budesonide 0.5 Mg/2 Ml Nebu IH Not Given Q12HRT SWATI Divalproex Sodium 250 mg 07/13/21 18:00 07/15/21 20:18 Divalproex Sprinkle 125 Mg Cap PO 250 mg Q12H SWATI Administration Famotidine 20 mg 07/12/21 10:00 07/15/21 10:36 Famotidine 20 Mg Tab PO 20 mg BID SWATI Administration Fenofibrate 145 mg 07/14/21 10:00 07/15/21 10:36 Fenofibrate 145 Mg Tab PO 145 mg DAILY SWATI Administration Lisinopril 5 mg 07/14/21 10:00 07/15/21 10:36 Lisinopril 5 Mg Tab PO 5 mg QDAY SWATI Administration Melatonin 5 mg 07/13/21 22:00 07/14/21 21:31 Melatonin 5 Mg Tab PO 5 mg QHS SWATI Administration Metoprolol Tartrate 25 mg 07/13/21 22:00 07/15/21 10:36 Metoprolol Tartrate 25 Mg Tab PO 25 mg BID SWATI Administration Ondansetron HCl 4 mg 07/12/21 03:12 Ondansetron 4 Mg/2 Ml Inj IV Q8H PRN Nausea And Vomiting Pantoprazole Sodium 20 mg 07/14/21 10:00 07/15/21 10:36 Pantoprazole 20 Mg Tab PO 20 mg QDAY SWATI Administration Pravastatin Sodium 40 mg 07/13/21 22:00 07/14/21 21:31 Pravastatin 40 Mg Tab PO 40 mg QHS SWATI Administration Senna/Docusate Sodium 1 tab 07/13/21 22:00 07/15/21 10:36 Sennosides/Docusate Sodium 8.6/50 Mg Tab PO 1 tab BID SWATI Administration Sodium Chloride 10 ml 07/12/21 10:00 07/14/21 21:30 Sodium Chloride 0.9% 10 Ml Flush Syringe IV 10 ml BID SWATI Administration Sodium Chloride 10 ml 07/12/21 03:12 Sodium Chloride 0.9% 10 Ml Flush Syringe IV PRN PRN LINE FLUSH Trazodone HCl 50 mg 07/13/21 22:00 07/14/21 21:30 Trazodone 50 Mg Tab PO 50 mg QHS SWATI Administration
[2021-07-15] MEDS: traZODone 50 MG TAB PO SCH (22:45)
[2021-07-15] MEDS: PRAVASTATIN 40 MG TAB PO SCH (22:46)
[2021-07-15] MEDS: MELATONIN 5 MG TAB PO SCH (22:46)
--- NOTE | 2021-07-15 23:52 | Ultrasound Report ---
ULTRASOUND ABDOMEN, LIMITED (RIGHT UPPER QUADRANT) INDICATION: ASSES FOR CHOLECYSTITIS . Right upper quadrant pain COMPARISON: None available. FINDINGS: Pancreas: Poorly visualized secondary to bowel gas Liver: Coarse increased echotexture characteristic for steatosis. Liver measures 21.2 cm. Gallbladder: Not well visualized secondary to bowel gas and patient refusing to cooperate. Bile ducts: Not visualized sonographically as patient refused to finish exam Free fluid: None. Additional Findings: None. IMPRESSION: 1. Incomplete study secondary to patient uncooperation. 2. Pancreas, gallbladder and common bile duct poorly visualized 3. Marked hepatic steatosis and moderate hepatomegaly Signer Name: Fabián Arteaga MD Signed: 07/14/2021 11:19 AM Workstation Name: [id number]
[2021-07-16] MEDS: DIVALPROEX SPRINKLE 125 MG CAP PO SCH ×2 (06:19→18:27)
[2021-07-16] MEDS: IPRATROPIUM/ALBUTEROL SULFATE 3 ML AMPUL.NEB IH SCH ×3 (09:07→22:14)
[2021-07-16] MEDS: ARFORMOTEROL 15 MCG/2 ML NEBU IH SCH ×2 (09:08→22:14)
[2021-07-16] MEDS: BUDESONIDE 0.5 MG/2 ML NEBU IH SCH ×2 (09:09→22:14)
--- NOTE | 2021-07-16 09:20 | Event Note ---
Date: 07/16/21 [facility]. I do not have the ability to perform this procedure while patient is in house. NO acute intervention necessary- please have patient follow p at discharge. BAG WASHER teaching to include: It is normal to have fluctuations in bleeding and new onset bleeding when placed on any anticoagulant. US not suspicious for malignancy. Kristel Avila MD
[2021-07-16] MEDS: SENNOSIDES/DOCUSATE SODIUM 8.6/50 MG TAB PO SCH ×2 (10:32→23:02)
[2021-07-16] MEDS: METOPROLOL TARTRATE 25 MG TAB PO SCH ×2 (10:33→23:04)
[2021-07-16] MEDS: PANTOPRAZOLE 20 MG TAB PO SCH (10:33)
[2021-07-16] MEDS: FAMOTIDINE 20 MG TAB PO SCH ×2 (10:34→23:02)
[2021-07-16] MEDS: FENOFIBRATE 145 MG TAB PO SCH (10:34)
[2021-07-16] MEDS: LISINOPRIL 5 MG TAB PO SCH (10:34)
--- NOTE | 2021-07-16 11:14 | Progress Note ---
Assessment and Plan Assessment and plan: 66-year-old female with history of severe obesity with BMI 55, mild dementia dementia, obstructive sleep apnea, CHF, hypertension and fully ambulatory was living with her daughter when she was admitted to [facility] couple of weeks ago in 06/2021 and was diagnosed with the COVID-19 pneumonia, UTI and bloodstream infection and was discharged to subacute rehab on IV antibiotics and on Eliquis for high D-dimer likely related to brought in by EMS from her usp due to vaginal bleeding which has been ongoing for 2 weeks. Records with patient and daughter patient had no menses for for couple of years and then menses resumed about years ago but patient did not get this evaluated. According daughter, menses are sometimes heavy. Patient is sent to ED for evaluation since having bleeding for 2 weeks with passed some clots. Some menstrual type of abdominal cramps but denies any sig nificant abdominal pain. She also denies any associated headache/vision change, neck pain, chest pain, shortness of breath, nausea/vomiting, dysuria, melena/hematochezia, or any other complaints. She has history of heart failure and there was seeing for several years then quit seeing him many years ago. In the ER patient hemoglobin is 13.5 and hematocrit 41.6. WBC 7.7, PT is 15.3 INR 1.09. Urine suggestive of UTI. Patient has no fever or chills. Subsequently Case discussed with on-call ORTHOTIC/PROSTHETIC CLINICIAN doctor who recommends to admit under hospitalist service and she will consult the patient. (1) uterine bleeding with history of menses after a gap, age 66 years Worse since placed on Eliquis Current Visit: Yes Status: Acute Plan to address problem: Currently no vaginal bleeding off Eliquis which was started recently for elevated D-Dimer in the setting of acute COVID-19 infection. However, no documented thromboembolism in the medical records obtained from [facility]. pelvic examination performed by ORTHOTIC/PROSTHETIC CLINICIAN revealed dark blood on glove. Patient denies abdominal pains or cramping. Patient reports having menses since 2 years after interruption for a couple of years. Not previously worked up by ORTHOTIC/PROSTHETIC CLINICIAN. CT abdomen/pelvis shows minimally prominent endometrium and a calcified fibroid. Vaginal ultrasound shows borderline endometrial thickness, 0.55 Centimeters, fibroid, right ovary surgically absent. ovary is obscured by bowel gas. Urinary bladder unremarkable. Patient denies dizziness, lightheadedness, chest pains or palpitations. ORTHOTIC/PROSTHETIC CLINICIAN recommends endometrial biopsy if endometrial thickness is more than 1 cm. Patient could be followed as outpatient. Dr. Avila reports that Patient to follow up as outpatient for endometrial biopsy. Dr. Avila does not have the ability to perform this procedure while patient is in house. NO acute intervention necessary. The patient will be scheduled for follow-up at discharge. CARD READER teaching to include: It is normal to have fluctuations in bleeding and new onset bleeding when placed on any anticoagulant. US not suspicious for malignancy. (2) Anticoagulated with Eliquis Current Visit: Yes Status: Acute Plan to address problem: We hold anticoagulation Eliquis for now. Vaginal bleeding almost stopped. I ndication for Eliquis started recently is for elevated D-Dimer in the setting of acute COVID-19 infection. However, no documented thromboembolism in the medical records obtained from [facility]. Risks appear to be higher than the benefits of anticoagulation in the absence of demonstrable as patient is having significant uterine bleeding with anticoagulation. (3) recently treated UTI with bacteremia, current urine cultures grew skin dottie Current Visit: Yes Status: Acute Plan to address problem: Patient was recently diagnosed with UTI and bacteremia at [facility] and sent home on IV antibiotics. Currently has no fever, dysuria. Empirically started on Rocephin Rocephin 2 g IV daily. Blood culture negative. Urine culture grew skin dottie. Discontinue Rocephin. Pelvic ultrasound shows unremarkable urinary bladder. Bedside bladder scan shows no urinary retention. (4) GERD (gastroesophageal reflux disease) Current Visit: Yes Status: Acute Plan to address problem: Pepcid 20 mg p.o. twice daily for GI prophylaxis. We will continue the home medication (5) mild dementia Current Visit: Yes Status: Acute Plan to address problem: Stable. Patient alert and oriented and answers to questions appropriately. She does get occasionally confused as described by her daughter. We will continue home medication (6) Hypertension Current Visit: Yes Status: Acute Plan to address problem: Hydralazine 10 mg IV every 6 hours as needed. We will continue the home medication. We will monitor the blood pressure closely (7) severe obesity, BMI 55, obstructive sleep apnea Current Visit: Yes Status: Acute Plan to address problem: Oxygen via nasal cannula 3 L/min. DuoNeb by nebulizer every 4 hours. Outpatient sleep study (8) remote history of heart failure Current Visit: Yes Status: Acute Plan to address problem: Patient was seeing a raised printer, Dr. Larose for several years but then quit seeing him many years ago. Currently appears to be euvolemic. Has mild sinus tachycardia but baseline rate unknown. (9) Uterine fibroid Current Visit: Yes Status: Acute Plan to address problem: Seen on CT on the ultrasound. CARD READER will see the patient in consultation. Recheck CBC in the morning (10) DVT prophylaxis Current Visit: Yes Status: Acute Plan to address problem: SCD for DVT prophylaxis. Pepcid 20 mg p.o. twice daily for GI prophylaxis. Patient is a full code Discussed with the patient, nursing staff, her daughter as well as ORTHOTIC/PROSTHETIC CLINICIAN. Discharge disposition: Patient is stable for discharge pending usp placement. Daughter refuses to take her back home stating she is unable to care for her anymore. Daughter is refusing to talk to patient. Patient is poorly ambulatory. History Interval history: No new issues overnight Hospitalist Physical - Constitutional Vitals: Temp Pulse Resp BP Pulse Ox 98.4 F 109 H 18 121/80 92 07/16/21 03:48 07/16/21 05:00 07/16/21 03:48 07/16/21 03:48 07/16/21 03:48 General appearance: Present: no acute distress, obese (Severe obesity, BMI 55.) - EENT Eyes: Present: PERRL, EOM intact ENT: hearing intact, clear oral mucosa, dentition normal - Neck Neck: Present: supple, normal ROM - Respiratory Respiratory effort: normal Respiratory: bilateral: CTA - Cardiovascular Rhythm: regular Heart Sounds: Present: S1 & S2. Absent: gallop, rub - Extremities Extremities: no ischemia, No edema, Full ROM - Abdominal General gastrointestinal: soft, non-tender, non-distended, normal bowel sounds - Integumentary Integumentary: Present: clear, warm, dry - Neurologic Neurologic: CNII-XII intact, moves all extremities Results - Labs CBC & Chem 7: 07/14/21 06:51 07/13/21 05:56 Labs: Laboratory Last Values WBC 8.0 K/mm3 (4.5-11.0) 07/14/21 06:51 RBC 4.06 M/mm3 (3.65-5.03) 07/14/21 06:51 Hgb 11.9 gm/dl (10.1-14.3) 07/14/21 06:51 Hct 37.2 % (30.3-42.9) 07/14/21 06:51 MCV 92 fl (79-97) 07/14/21 06:51 MCH 29 pg (28-32) 07/14/21 06:51 MCHC 32 % (30-34) 07/14/21 06:51 RDW 15.2 % (13.2-15.2) 07/14/21 06:51 Plt Count 351 K/mm3 (140-440) 07/14/21 06:51 Lymph % (Auto) 18.8 % (13.4-35.0) 07/14/21 06:51 [place] % (Auto) 10.4 % (0.0-7.3) H 07/14/21 06:51 Eos % (Auto) 2.2 % (0.0-4.3) 07/14/21 06:51 Baso % (Auto) 0.8 % (0.0-1.8) 07/14/21 06:51 Lymph # (Auto) 1.5 K/mm3 (1.2-5.4) 07/14/21 06:51 [place] # (Auto) 0.8 K/mm3 (0.0-0.8) 07/14/21 06:51 Eos # (Auto) 0.2 K/mm3 (0.0-0.4) 07/14/21 06:51 Baso # (Auto) 0.1 K/mm3 (0.0-0.1) 07/14/21 06:51 Seg Neutrophils % 67.8 % (40.0-70.0) 07/14/21 06:51 Seg Neutrophils # 5.4 K/mm3 (1.8-7.7) 07/14/21 06:51 PT 15.2 Sec. (12.2-14.9) H 07/13/21 05:56 INR 1.08 (0.87-1.13) 07/13/21 05:56 APTT 28.4 Sec. (24.2-36.6) 07/11/21 19:34 D-Dimer 705.15 ng/mlDDU (0-234) H 07/16/21 08:56 Sodium 137 mmol/L (137-145) 07/13/21 05:56 Potassium 3.9 mmol/L (3.6-5.0) 07/13/21 05:56 Chloride 99.5 mmol/L (98-107) 07/13/21 05:56 Carbon Dioxide 24 mmol/L (22-30) 07/13/21 05:56 Anion Gap 17 mmol/L 07/13/21 05:56 BUN 16 mg/dL (7-17) 07/13/21 05:56 Creatinine 0.6 mg/dL (0.6-1.2) 07/13/21 05:56 Estimated GFR > 60 ml/min 07/13/21 05:56 BUN/Creatinine Ratio 27 % 07/13/21 05:56 Glucose 103 mg/dL (65-100) H 07/13/21 05:56 Calcium 9.0 mg/dL (8.4-10.2) 07/13/21 05:56 Total Bilirubin 0.40 mg/dL (0.1-1.2) 07/11/21 19:34 AST 26 units/L (5-40) 07/11/21 19:34 ALT 20 units/L (7-56) 07/11/21 19:34 Alkaline Phosphatase 37 units/L (35-129) 07/11/21 19:34 NT-Pro-B Natriuret Pep 274.1 pg/mL (0-900) 07/14/21 06:51 Total Protein 7.2 g/dL (6.3-8.2) 07/11/21 19:34 Albumin 3.4 g/dL (3.9-5) L 07/11/21 19:34 Albumin/Globulin Ratio 0.9 % 07/11/21 19:34 TSH 3.060 mlU/mL (0.270-4.200) 07/14/21 06:51 Free T4 1.54 ng/dL (0.76-1.46) H 07/16/21 08:56 Urine Color Red (Yellow) 07/12/21 Unknown Urine Turbidity Cloudy (Clear) 07/12/21 Unknown Urine pH 6.0 (5.0-7.0) 07/12/21 Unknown Ur Specific [place] 1.017 (1.003-1.030) 07/12/21 Unknown Urine Protein 100 mg/dl mg/dL (Negative) 07/12/21 Unknown Urine Glucose (UA) Neg mg/dL (Negative) 07/12/21 Unknown Urine Ketones Tr mg/dL (Negative) 07/12/21 Unknown Urine Blood Lg (Negative) 07/12/21 Unknown Urine Nitrite Neg (Negative) 07/12/21 Unknown Urine Bilirubin Neg (Negative) 07/12/21 Unknown Urine Urobilinogen < 2.0 mg/dL (<2.0) 07/12/21 Unknown Ur Leukocyte Esterase Mod (Negative) 07/12/21 Unknown Urine WBC (Auto) 23.0 /HPF (0.0-6.0) H 07/12/21 Unknown Urine RBC (Auto) 38.0 /HPF (0.0-6.0) 07/12/21 Unknown U Epithel Cells (Auto) 3.0 /HPF (0-13.0) 07/12/21 Unknown Urine Bacteria (Auto) 2+ /HPF (Negative) 07/12/21 Unknown Urine Mucus Few /HPF 07/12/21 Unknown Microbiology: Microbiology 07/12/21 01:47 Peripheral/Venous Blood Culture - Preliminary NO GROWTH AFTER 4 DAYS 07/12/21 00:54 Peripheral/Venous Blood Culture - Preliminary NO GROWTH AFTER 4 DAYS Lott/IV: Voiding Method External Female Catheter Active Medications - Current Medications Current Medications: Generic Name Dose Route Start Last Admin Trade Name Freq PRN Reason Stop Dose Admin Acetaminophen 650 mg 07/12/21 03:12 Acetaminophen 325 Mg Tab PO Q4H PRN Pain MILD(1-3)/Fever >100.5/CHENG Albuterol 2.5 mg 07/12/21 03:12 Albuterol 2.5 Mg/3 Ml Nebu IH Q3HRT PRN Shortness Of Breath Albuterol/Ipratropium 1 ampul 07/15/21 08:00 07/16/21 09:07 Ipratropium/Albuterol Sulfate 3 Ml Ampul.Neb IH Not Given TIDRT SWATI Arformoterol Tartrate 15 mcg 07/13/21 20:00 07/16/21 09:08 Arformoterol 15 Mcg/2 Ml Nebu IH Not Given Q12HRT SWATI Budesonide 1 mg 07/13/21 20:00 02/15/22 09:09 Budesonide 0.5 Mg/2 Ml Nebu IH Not Given Q12HRT SWATI Divalproex Sodium 250 mg 07/13/21 18:00 07/16/21 06:19 Divalproex Sprinkle 125 Mg Cap PO 250 mg Q12H SWATI Administration Famotidine 20 mg 07/12/21 10:00 07/16/21 10:34 Famotidine 20 Mg Tab PO 20 mg BID SWATI Administration Fenofibrate 145 mg 07/14/21 10:00 07/16/21 10:34 Fenofibrate 145 Mg Tab PO 145 mg DAILY SWATI Administration Lisinopril 5 mg 07/14/21 10:00 07/16/21 10:34 Lisinopril 5 Mg Tab PO 5 mg QDAY SWATI Administration Melatonin 5 mg 07/13/21 22:00 07/15/21 22:46 Melatonin 5 Mg Tab PO 5 mg QHS SWATI Administration Metoprolol Tartrate 25 mg 07/13/21 22:00 07/16/21 10:33 Metoprolol Tartrate 25 Mg Tab PO 25 mg BID SWATI Administration Ondansetron HCl 4 mg 07/12/21 03:12 Ondansetron 4 Mg/2 Ml Inj IV Q8H PRN Nausea And Vomiting Pantoprazole Sodium 20 mg 07/14/21 10:00 07/16/21 10:33 Pantoprazole 20 Mg Tab PO 20 mg QDAY SWATI Administration Pravastatin Sodium 40 mg 07/13/21 22:00 07/15/21 22:46 Pravastatin 40 Mg Tab PO 40 mg QHS SWATI Administration Senna/Docusate Sodium 1 tab 07/13/21 22:00 07/16/21 10:32 Sennosides/Docusate Sodium 8.6/50 Mg Tab PO 1 tab BID SWATI Administration Sodium Chloride 10 ml 07/12/21 10:00 07/15/21 22:46 Sodium Chloride 0.9% 10 Ml Flush Syringe IV 10 ml BID SWATI Administration Sodium Chloride 10 ml 07/12/21 03:12 Sodium Chloride 0.9% 10 Ml Flush Syringe IV PRN PRN LINE FLUSH Trazodone HCl 50 mg 07/13/21 22:00 07/15/21 22:45 Trazodone 50 Mg Tab PO 50 mg QHS SWATI Administration
[2021-07-16] MEDS: ACETAMINOPHEN 325 MG TAB PO PRN ×2 (18:28→23:02)
[2021-07-16] MEDS ORDERED: MORPHINE 2 MG/1 ML INJ IM ONE (21:25)
[2021-07-16] MEDS: traZODone 50 MG TAB PO SCH (23:02)
[2021-07-16] MEDS: MELATONIN 5 MG TAB PO SCH (23:02)
[2021-07-16] MEDS: PRAVASTATIN 40 MG TAB PO SCH (23:02)
[2021-07-16] MEDS: POLYETHYLENE GLYCOL 3350 17 GM POWDER PO SCH (23:02)
[2021-07-17] MEDS: DIVALPROEX SPRINKLE 125 MG CAP PO SCH ×2 (06:34→18:47)
[2021-07-17] MEDS: ARFORMOTEROL 15 MCG/2 ML NEBU IH SCH ×2 (09:01→20:30)
[2021-07-17] MEDS: IPRATROPIUM/ALBUTEROL SULFATE 3 ML AMPUL.NEB IH SCH ×2 (09:01→20:30)
[2021-07-17] MEDS: BUDESONIDE 0.5 MG/2 ML NEBU IH SCH ×2 (09:01→20:30)
[2021-07-17] MEDS: POLYETHYLENE GLYCOL 3350 17 GM POWDER PO SCH (12:18)
[2021-07-17] MEDS: LISINOPRIL 5 MG TAB PO SCH (12:19)
[2021-07-17] MEDS: FENOFIBRATE 145 MG TAB PO SCH (12:19)
[2021-07-17] MEDS: SENNOSIDES/DOCUSATE SODIUM 8.6/50 MG TAB PO SCH ×2 (12:19→21:02)
[2021-07-17] MEDS: METOPROLOL TARTRATE 25 MG TAB PO SCH ×2 (12:19→21:12)
[2021-07-17] MEDS: FAMOTIDINE 20 MG TAB PO SCH ×2 (12:20→21:03)
[2021-07-17] MEDS: PANTOPRAZOLE 20 MG TAB PO SCH (12:20)
--- NOTE | 2021-07-17 12:28 | Progress Note ---
Assessment and Plan Assessment and plan: 66-year-old female with history of severe obesity with BMI 55, mild dementia dementia, obstructive sleep apnea, CHF, hypertension and fully ambulatory was living with her daughter when she was admitted to [facility] hospital couple of weeks ago in 06/2021 and was diagnosed with the COVID-19 pneumonia, UTI and bloodstream infection and was discharged to subacute rehab on IV antibiotics and on Eliquis for high D-dimer likely related to brought in by EMS from her retirement due to vaginal bleeding which has been ongoing for 2 weeks. Records with patient and daughter patient had no menses for for couple of years and then menses resumed about years ago but patient did not get this evaluated. According daughter, menses are sometimes heavy. Patient is sent to ED for evaluation since having bleeding for 2 weeks with passed some clots. Some menstrual type of abdominal cramps but denies any sig nificant abdominal pain. She also denies any associated headache/vision change, neck pain, chest pain, shortness of breath, nausea/vomiting, dysuria, melena/hematochezia, or any other complaints. She has history of heart failure and there was seeing for several years then quit seeing him many years ago. In the ER patient hemoglobin is 13.5 and hematocrit 41.6. WBC 7.7, PT is 15.3 INR 1.09. Urine suggestive of UTI. Patient has no fever or chills. Subsequently Case discussed with on-call LINING PRESSER doctor who recommends to admit under hospitalist service and she will consult the patient. (1) uterine bleeding with history of menses after a gap, age 66 years Worse since placed on Eliquis Current Visit: Yes Status: Acute Plan to address problem: Currently no vaginal bleeding off Eliquis which was started recently for elevated D-Dimer in the setting of acute COVID-19 infection. However, no documented thromboembolism in the medical records obtained from [facility]. pelvic examination performed by LINING PRESSER revealed dark blood on glove. Patient denies abdominal pains or cramping. Patient reports having menses since 2 years after interruption for a couple of years. Not previously worked up by LINING PRESSER. CT abdomen/pelvis shows minimally prominent endometrium and a calcified fibroid. Vaginal ultrasound shows borderline endometrial thickness, 0.55 Centimeters, fibroid, right ovary surgically absent. ovary is obscured by bowel gas. Urinary bladder unremarkable. Patient denies dizziness, lightheadedness, chest pains or palpitations. LINING PRESSER recommends endometrial biopsy if endometrial thickness is more than 1 cm. Patient could be followed as outpatient. Dr. Avila reports that Patient to follow up as outpatient for endometrial biopsy. Dr. Avila does not have the ability to perform this procedure while patient is in house. NO acute intervention necessary. The patient will be scheduled for follow-up at discharge. COLLEGE PRESIDENT teaching to include: It is normal to have fluctuations in bleeding and new onset bleeding when placed on any anticoagulant. US not suspicious for malignancy. (2) Anticoagulated with Eliquis Current Visit: Yes Status: Acute Plan to address problem: We hold anticoagulation Eliquis for now. Vaginal bleeding almost stopped. I ndication for Eliquis started recently is for elevated D-Dimer in the setting of acute COVID-19 infection. However, no documented thromboembolism in the medical records obtained from [facility]. Risks appear to be higher than the benefits of anticoagulation in the absence of demonstrable as patient is having significant uterine bleeding with anticoagulation. (3) recently treated UTI with bacteremia, current urine cultures grew skin dottie Current Visit: Yes Status: Acute Plan to address problem: Patient was recently diagnosed with UTI and bacteremia at [facility] and sent home on IV antibiotics. Currently has no fever, dysuria. Empirically started on Rocephin Rocephin 2 g IV daily. Blood culture negative. Urine culture grew skin dottie. Discontinue Rocephin. Pelvic ultrasound shows unremarkable urinary bladder. Bedside bladder scan shows no urinary retention. (4) GERD (gastroesophageal reflux disease) Current Visit: Yes Status: Acute Plan to address problem: Pepcid 20 mg p.o. twice daily for GI prophylaxis. We will continue the home medication (5) mild dementia Current Visit: Yes Status: Acute Plan to address problem: Stable. Patient alert and oriented and answers to questions appropriately. She does get occasionally confused as described by her daughter. We will continue home medication (6) Hypertension Current Visit: Yes Status: Acute Plan to address problem: Hydralazine 10 mg IV every 6 hours as needed. We will continue the home medication. We will monitor the blood pressure closely (7) severe obesity, BMI 55, obstructive sleep apnea Current Visit: Yes Status: Acute Plan to address problem: Oxygen via nasal cannula 3 L/min. DuoNeb by nebulizer every 4 hours. Outpatient sleep study (8) remote history of heart failure Current Visit: Yes Status: Acute Plan to address problem: Patient was seeing a assembler hydraulic backhoe, Dr. Larose for several years but then quit seeing him many years ago. Currently appears to be euvolemic. Has mild sinus tachycardia but baseline rate unknown. (9) Uterine fibroid Current Visit: Yes Status: Acute Plan to address problem: Seen on CT on the ultrasound. COLLEGE PRESIDENT will see the patient in consultation. Recheck CBC in the morning (10) DVT prophylaxis Current Visit: Yes Status: Acute Plan to address problem: SCD for DVT prophylaxis. Pepcid 20 mg p.o. twice daily for GI prophylaxis. Patient is a full code Discussed with the patient, nursing staff, her daughter as well as LINING PRESSER. Discharge disposition: Patient is stable for discharge pending retirement placement. Daughter refuses to take her back home stating she is unable to care for her anymore. Daughter is refusing to talk to patient. Patient is poorly ambulatory. Case management update for 07/17/2021. SW spoke with daughter about the patient's discharge. The SW informed daughter about patient's liability and hospital bill if she is left in the hospital. The SW explained that she will have to contact APS to file an APS report under neglect if she is not cooperative with post discharge care. The daughter reports that the patient was at [facility] where she had some complaints that the patient was not being cared for. The daughter reports that the patient was left in urine, not changed and turn when needed. The daughter says that the patient did not receive any PT while at facility. The SW asked about the Maxed out days at facility and she reports that the facility tried to find another place for patient but her insurance days had . The daughter says that the patient is not able to return home cause she is not able to care for her and that know one will be home with her. he daughter says that she will contact her truck caterer to get involved. SW informed that we have to have plans for patient. History Interval history: No new issues overnight Hospitalist Physical - Constitutional Vitals: Temp Pulse Resp BP Pulse Ox 98.4 F 88 18 113/66 96 07/17/21 11:31 07/17/21 12:19 07/17/21 11:31 07/17/21 12:19 07/17/21 11:31 General appearance: Present: no acute distress, obese (Severe obesity, BMI 55.) - EENT Eyes: Present: PERRL, EOM intact ENT: hearing intact, clear oral mucosa, dentition normal - Neck Neck: Present: supple, normal ROM - Respiratory Respiratory effort: normal Respiratory: bilateral: CTA - Cardiovascular Rhythm: regular Heart Sounds: Present: S1 & S2. Absent: gallop, rub - Extremities Extremities: no ischemia, No edema, Full ROM - Abdominal General gastrointestinal: soft, non-tender, non-distended, normal bowel sounds - Integumentary Integumentary: Present: clear, warm, dry - Neurologic Neurologic: CNII-XII intact, moves all extremities Results - Labs CBC & Chem 7: 07/14/21 06:51 07/13/21 05:56 Labs: Laboratory Last Values WBC 8.0 K/mm3 (4.5-11.0) 07/14/21 06:51 RBC 4.06 M/mm3 (3.65-5.03) 07/14/21 06:51 Hgb 11.9 gm/dl (10.1-14.3) 07/14/21 06:51 Hct 37.2 % (30.3-42.9) 07/14/21 06:51 MCV 92 fl (79-97) 07/14/21 06:51 MCH 29 pg (28-32) 07/14/21 06:51 MCHC 32 % (30-34) 07/14/21 06:51 RDW 15.2 % (13.2-15.2) 07/14/21 06:51 Plt Count 351 K/mm3 (140-440) 07/14/21 06:51 Lymph % (Auto) 18.8 % (13.4-35.0) 07/14/21 06:51 [place] % (Auto) 10.4 % (0.0-7.3) H 07/14/21 06:51 Eos % (Auto) 2.2 % (0.0-4.3) 07/14/21 06:51 Baso % (Auto) 0.8 % (0.0-1.8) 07/14/21 06:51 Lymph # (Auto) 1.5 K/mm3 (1.2-5.4) 07/14/21 06:51 [place] # (Auto) 0.8 K/mm3 (0.0-0.8) 07/14/21 06:51 Eos # (Auto) 0.2 K/mm3 (0.0-0.4) 07/14/21 06:51 Baso # (Auto) 0.1 K/mm3 (0.0-0.1) 07/14/21 06:51 Seg Neutrophils % 67.8 % (40.0-70.0) 07/14/21 06:51 Seg Neutrophils # 5.4 K/mm3 (1.8-7.7) 07/14/21 06:51 PT 15.2 Sec. (12.2-14.9) H 07/13/21 05:56 INR 1.08 (0.87-1.13) 07/13/21 05:56 APTT 28.4 Sec. (24.2-36.6) 07/11/21 19:34 D-Dimer 705.15 ng/mlDDU (0-234) H 07/16/21 08:56 Sodium 137 mmol/L (137-145) 07/13/21 05:56 Potassium 3.9 mmol/L (3.6-5.0) 07/13/21 05:56 Chloride 99.5 mmol/L (98-107) 07/13/21 05:56 Carbon Dioxide 24 mmol/L (22-30) 07/13/21 05:56 Anion Gap 17 mmol/L 07/13/21 05:56 BUN 16 mg/dL (7-17) 07/13/21 05:56 Creatinine 0.6 mg/dL (0.6-1.2) 07/13/21 05:56 Estimated GFR > 60 ml/min 07/13/21 05:56 BUN/Creatinine Ratio 27 % 07/13/21 05:56 Glucose 103 mg/dL (65-100) H 07/13/21 05:56 Calcium 9.0 mg/dL (8.4-10.2) 07/13/21 05:56 Total Bilirubin 0.40 mg/dL (0.1-1.2) 07/11/21 19:34 AST 26 units/L (5-40) 07/11/21 19:34 ALT 20 units/L (7-56) 07/11/21 19:34 Alkaline Phosphatase 37 units/L (35-129) 07/11/21 19:34 NT-Pro-B Natriuret Pep 274.1 pg/mL (0-900) 07/14/21 06:51 Total Protein 7.2 g/dL (6.3-8.2) 07/11/21 19:34 Albumin 3.4 g/dL (3.9-5) L 07/11/21 19:34 Albumin/Globulin Ratio 0.9 % 07/11/21 19:34 TSH 3.060 mlU/mL (0.270-4.200) 07/14/21 06:51 Free T4 1.54 ng/dL (0.76-1.46) H 07/16/21 08:56 Urine Color Red (Yellow) 07/12/21 Unknown Urine Turbidity Cloudy (Clear) 07/12/21 Unknown Urine pH 6.0 (5.0-7.0) 07/12/21 Unknown Ur Specific [place] 1.017 (1.003-1.030) 07/12/21 Unknown Urine Protein 100 mg/dl mg/dL (Negative) 07/12/21 Unknown Urine Glucose (UA) Neg mg/dL (Negative) 07/12/21 Unknown Urine Ketones Tr mg/dL (Negative) 07/12/21 Unknown Urine Blood Lg (Negative) 07/12/21 Unknown Urine Nitrite Neg (Negative) 07/12/21 Unknown Urine Bilirubin Neg (Negative) 07/12/21 Unknown Urine Urobilinogen < 2.0 mg/dL (<2.0) 07/12/21 Unknown Ur Leukocyte Esterase Mod (Negative) 07/12/21 Unknown Urine WBC (Auto) 23.0 /HPF (0.0-6.0) H 07/12/21 Unknown Urine RBC (Auto) 38.0 /HPF (0.0-6.0) 07/12/21 Unknown U Epithel Cells (Auto) 3.0 /HPF (0-13.0) 07/12/21 Unknown Urine Bacteria (Auto) 2+ /HPF (Negative) 07/12/21 Unknown Urine Mucus Few /HPF 07/12/21 Unknown Microbiology: Microbiology 07/12/21 01:47 Peripheral/Venous Blood Culture - Final NO GROWTH AFTER 5 DAYS 07/12/21 00:54 Peripheral/Venous Blood Culture - Final NO GROWTH AFTER 5 DAYS Lott/IV: Voiding Method Incontinent Active Medications - Current Medications Current Medications: Generic Name Dose Route Start Last Admin Trade Name Freq PRN Reason Stop Dose Admin Acetaminophen 650 mg 07/12/21 03:12 07/16/21 23:02 Acetaminophen 325 Mg Tab PO 650 mg Q4H PRN Administration Pain MILD(1-3)/Fever >100.5/CHENG Albuterol 2.5 mg 07/12/21 03:12 Albuterol 2.5 Mg/3 Ml Nebu IH Q3HRT PRN Shortness Of Breath Albuterol/Ipratropium 1 ampul 07/17/21 08:00 07/17/21 09:01 Ipratropium/Albuterol Sulfate 3 Ml Ampul.Neb IH Not Given BIDRT SWATI Arformoterol Tartrate 15 mcg 07/13/21 20:00 07/17/21 09:01 Arformoterol 15 Mcg/2 Ml Nebu IH Not Given Q12HRT SWATI Budesonide 1 mg 07/13/21 20:00 07/17/21 09:01 Budesonide 0.5 Mg/2 Ml Nebu IH Not Given Q12HRT SWATI Divalproex Sodium 250 mg 07/13/21 18:00 07/17/21 06:34 Divalproex Sprinkle 125 Mg Cap PO 250 mg Q12H SWATI Administration Famotidine 20 mg 07/12/21 10:00 07/17/21 12:20 Famotidine 20 Mg Tab PO 20 mg BID SWATI Administration Fenofibrate 145 mg 07/14/21 10:00 07/17/21 12:19 Fenofibrate 145 Mg Tab PO 145 mg DAILY SWATI Administration Lisinopril 5 mg 07/14/21 10:00 07/17/21 12:19 Lisinopril 5 Mg Tab PO 5 mg QDAY SWATI Administration Melatonin 5 mg 07/13/21 22:00 07/16/21 23:02 Melatonin 5 Mg Tab PO 5 mg QHS SWATI Administration Metoprolol Tartrate 25 mg 07/13/21 22:00 07/17/21 12:19 Metoprolol Tartrate 25 Mg Tab PO 25 mg BID SWATI Administration Ondansetron HCl 4 mg 07/12/21 03:12 Ondansetron 4 Mg/2 Ml Inj IV Q8H PRN Nausea And Vomiting Pantoprazole Sodium 20 mg 07/14/21 10:00 07/17/21 12:20 Pantoprazole 20 Mg Tab PO 20 mg QDAY SWATI Administration Polyethylene Glycol 17 gm 07/16/21 22:00 07/17/21 12:18 Polyethylene Glycol 3350 17 Gm Powder PO 07/17/21 23:59 17 gm QDAY SWATI Administration Pravastatin Sodium 40 mg 07/13/21 22:00 07/16/21 23:02 Pravastatin 40 Mg Tab PO 40 mg QHS SWATI Administration Senna/Docusate Sodium 1 tab 07/13/21 22:00 07/17/21 12:19 Sennosides/Docusate Sodium 8.6/50 Mg Tab PO 1 tab BID SWATI Administration Sodium Chloride 10 ml 07/12/21 10:00 07/16/21 23:03 Sodium Chloride 0.9% 10 Ml Flush Syringe IV 10 ml BID SWATI Administration Sodium Chloride 10 ml 07/12/21 03:12 Sodium Chloride 0.9% 10 Ml Flush Syringe IV PRN PRN LINE FLUSH Trazodone HCl 50 mg 07/13/21 22:00 07/16/21 23:02 Trazodone 50 Mg Tab PO 50 mg QHS SWATI Administration
[2021-07-17] MEDS: ACETAMINOPHEN 325 MG TAB PO PRN (18:47)
[2021-07-17] MEDS: traZODone 50 MG TAB PO SCH (21:03)
[2021-07-17] MEDS: MELATONIN 5 MG TAB PO SCH (21:03)
[2021-07-17] MEDS: PRAVASTATIN 40 MG TAB PO SCH (21:03)
[2021-07-18] MEDS: DIVALPROEX SPRINKLE 125 MG CAP PO SCH ×2 (05:29→17:58)
[2021-07-18] MEDS: BUDESONIDE 0.5 MG/2 ML NEBU IH SCH ×2 (09:15→20:00)
[2021-07-18] MEDS: ARFORMOTEROL 15 MCG/2 ML NEBU IH SCH ×2 (09:21→20:00)
[2021-07-18] MEDS: IPRATROPIUM/ALBUTEROL SULFATE 3 ML AMPUL.NEB IH SCH ×2 (09:21→20:00)
[2021-07-18] MEDS: LISINOPRIL 5 MG TAB PO SCH (09:34)
[2021-07-18] MEDS: SENNOSIDES/DOCUSATE SODIUM 8.6/50 MG TAB PO SCH ×2 (09:34→21:11)
[2021-07-18] MEDS: PANTOPRAZOLE 20 MG TAB PO SCH (09:34)
[2021-07-18] MEDS: METOPROLOL TARTRATE 25 MG TAB PO SCH ×2 (09:35→21:11)
[2021-07-18] MEDS: FAMOTIDINE 20 MG TAB PO SCH ×2 (09:35→21:11)
[2021-07-18] MEDS: FENOFIBRATE 145 MG TAB PO SCH (09:35)
--- NOTE | 2021-07-18 12:19 | Progress Note ---
Assessment and Plan Assessment and plan: 66-year-old female with history of severe obesity with BMI 55, mild dementia dementia, obstructive sleep apnea, CHF, hypertension and fully ambulatory was living with her daughter when she was admitted to [facility] couple of weeks ago in 06/2021 and was diagnosed with the COVID-19 pneumonia, UTI and bloodstream infection and was discharged to subacute rehab on IV antibiotics and on Eliquis for high D-dimer likely related to brought in by EMS from her snf due to vaginal bleeding which has been ongoing for 2 weeks. Records with patient and daughter patient had no menses for for couple of years and then menses resumed about years ago but patient did not get this evaluated. According daughter, menses are sometimes heavy. Patient is sent to ED for evaluation since having bleeding for 2 weeks with passed some clots. Some menstrual type of abdominal cramps but denies any sig nificant abdominal pain. She also denies any associated headache/vision change, neck pain, chest pain, shortness of breath, nausea/vomiting, dysuria, melena/hematochezia, or any other complaints. She has history of heart failure and there was seeing for several years then quit seeing him many years ago. In the ER patient hemoglobin is 13.5 and hematocrit 41.6. WBC 7.7, PT is 15.3 INR 1.09. Urine suggestive of UTI. Patient has no fever or chills. Subsequently Case discussed with on-call PUBLIC ADMINISTRATION PROFESSOR doctor who recommends to admit under hospitalist service and she will consult the patient. (1) uterine bleeding with history of menses after a gap, age 66 years Worse since placed on Eliquis Current Visit: Yes Status: Acute Plan to address problem: Currently no vaginal bleeding off Eliquis which was started recently for elevated D-Dimer in the setting of acute COVID-19 infection. However, no documented thromboembolism in the medical records obtained from [facility]. pelvic examination performed by PUBLIC ADMINISTRATION PROFESSOR revealed dark blood on glove. Patient denies abdominal pains or cramping. Patient reports having menses since 2 years after interruption for a couple of years. Not previously worked up by PUBLIC ADMINISTRATION PROFESSOR. CT abdomen/pelvis shows minimally prominent endometrium and a calcified fibroid. Vaginal ultrasound shows borderline endometrial thickness, 0.55 Centimeters, fibroid, right ovary surgically absent. ovary is obscured by bowel gas. Urinary bladder unremarkable. Patient denies dizziness, lightheadedness, chest pains or palpitations. PUBLIC ADMINISTRATION PROFESSOR recommends endometrial biopsy if endometrial thickness is more than 1 cm. Patient could be followed as outpatient. Dr. Avila reports that Patient to follow up as outpatient for endometrial biopsy. Dr. Avila does not have the ability to perform this procedure while patient is in house. NO acute intervention necessary. The patient will be scheduled for follow-up at discharge. INSTRUMENTATION TECHNOLOGIST teaching to include: It is normal to have fluctuations in bleeding and new onset bleeding when placed on any anticoagulant. US not suspicious for malignancy. (2) Anticoagulated with Eliquis Current Visit: Yes Status: Acute Plan to address problem: We hold anticoagulation Eliquis for now. Vaginal bleeding almost stopped. I ndication for Eliquis started recently is for elevated D-Dimer in the setting of acute COVID-19 infection. However, no documented thromboembolism in the medical records obtained from [facility]. Risks appear to be higher than the benefits of anticoagulation in the absence of demonstrable as patient is having significant uterine bleeding with anticoagulation. (3) recently treated UTI with bacteremia, current urine cultures grew skin dottie Current Visit: Yes Status: Acute Plan to address problem: Patient was recently diagnosed with UTI and bacteremia at [facility] and sent home on IV antibiotics. Currently has no fever, dysuria. Empirically started on Rocephin Rocephin 2 g IV daily. Blood culture negative. Urine culture grew skin dottie. Discontinue Rocephin. Pelvic ultrasound shows unremarkable urinary bladder. Bedside bladder scan shows no urinary retention. (4) GERD (gastroesophageal reflux disease) Current Visit: Yes Status: Acute Plan to address problem: Pepcid 20 mg p.o. twice daily for GI prophylaxis. We will continue the home medication (5) mild dementia Current Visit: Yes Status: Acute Plan to address problem: Stable. Patient alert and oriented and answers to questions appropriately. She does get occasionally confused as described by her daughter. We will continue home medication (6) Hypertension Current Visit: Yes Status: Acute Plan to address problem: Hydralazine 10 mg IV every 6 hours as needed. We will continue the home medication. We will monitor the blood pressure closely (7) severe obesity, BMI 55, obstructive sleep apnea Current Visit: Yes Status: Acute Plan to address problem: Oxygen via nasal cannula 3 L/min. DuoNeb by nebulizer every 4 hours. Outpatient sleep study (8) remote history of heart failure Current Visit: Yes Status: Acute Plan to address problem: Patient was seeing a reservations agent, Dr. Larose for several years but then quit seeing him many years ago. Currently appears to be euvolemic. Has mild sinus tachycardia but baseline rate unknown. (9) Uterine fibroid Current Visit: Yes Status: Acute Plan to address problem: Seen on CT on the ultrasound. INSTRUMENTATION TECHNOLOGIST will see the patient in consultation. Recheck CBC in the morning (10) DVT prophylaxis Current Visit: Yes Status: Acute Plan to address problem: SCD for DVT prophylaxis. Pepcid 20 mg p.o. twice daily for GI prophylaxis. Patient is a full code Discussed with the patient, nursing staff, her daughter as well as PUBLIC ADMINISTRATION PROFESSOR. Discharge disposition: Patient is stable for discharge pending snf placement. Daughter refuses to take her back home stating she is unable to care for her anymore. Daughter is refusing to talk to patient. Patient is poorly ambulatory. 07/17: Case management update for 07/17/2021. SW spoke with daughter about the patient's discharge. The SW informed daughter about patient's liability and hospital bill if she is left in the hospital. The SW explained that she will have to contact APS to file an APS report under neglect if she is not cooperative with post discharge care. The daughter reports that the patient was at [facility] and rehab where she had some complaints that the patient was not being cared for. The daughter reports that the patient was left in urine, not changed and turn when needed. The daughter says that the patient did not receive any PT while at facility. The SW asked about the Maxed out days at facility and she reports that the facility tried to find another place for patient but her insurance days had . The daughter says that the patient is not able to return home cause she is not able to care for her and that know one will be home with her. he daughter says that she will contact her corporate lawyer to get involved. SW informed that we have to have plans for patient. 07/18: Patient still awaiting placement. Await case management recommendations with regards to placement History Interval history: No new issues overnight Hospitalist Physical - Constitutional Vitals: Temp Pulse Resp BP Pulse Ox 98.9 F 98 H 14 143/75 98 07/18/21 08:34 07/18/21 09:21 07/18/21 09:21 07/18/21 08:34 07/18/21 08:34 General appearance: Present: no acute distress, obese (Severe obesity, BMI 55.) - EENT Eyes: Present: PERRL, EOM intact ENT: hearing intact, clear oral mucosa, dentition normal - Neck Neck: Present: supple, normal ROM - Respiratory Respiratory effort: normal Respiratory: bilateral: CTA - Cardiovascular Rhythm: regular Heart Sounds: Present: S1 & S2. Absent: gallop, rub - Extremities Extremities: no ischemia, No edema, Full ROM - Abdominal General gastrointestinal: soft, non-tender, non-distended, normal bowel sounds - Integumentary Integumentary: Present: clear, warm, dry - Neurologic Neurologic: CNII-XII intact, moves all extremities Results - Labs CBC & Chem 7: 07/14/21 06:51 07/13/21 05:56 Labs: Laboratory Last Values WBC 8.0 K/mm3 (4.5-11.0) 07/14/21 06:51 RBC 4.06 M/mm3 (3.65-5.03) 07/14/21 06:51 Hgb 11.9 gm/dl (10.1-14.3) 07/14/21 06:51 Hct 37.2 % (30.3-42.9) 07/14/21 06:51 MCV 92 fl (79-97) 07/14/21 06:51 MCH 29 pg (28-32) 07/14/21 06:51 MCHC 32 % (30-34) 07/14/21 06:51 RDW 15.2 % (13.2-15.2) 07/14/21 06:51 Plt Count 351 K/mm3 (140-440) 07/14/21 06:51 Lymph % (Auto) 18.8 % (13.4-35.0) 07/14/21 06:51 [place] % (Auto) 10.4 % (0.0-7.3) H 07/14/21 06:51 Eos % (Auto) 2.2 % (0.0-4.3) 07/14/21 06:51 Baso % (Auto) 0.8 % (0.0-1.8) 07/14/21 06:51 Lymph # (Auto) 1.5 K/mm3 (1.2-5.4) 07/14/21 06:51 [place] # (Auto) 0.8 K/mm3 (0.0-0.8) 07/14/21 06:51 Eos # (Auto) 0.2 K/mm3 (0.0-0.4) 07/14/21 06:51 Baso # (Auto) 0.1 K/mm3 (0.0-0.1) 07/14/21 06:51 Seg Neutrophils % 67.8 % (40.0-70.0) 07/14/21 06:51 Seg Neutrophils # 5.4 K/mm3 (1.8-7.7) 07/14/21 06:51 PT 15.2 Sec. (12.2-14.9) H 07/13/21 05:56 INR 1.08 (0.87-1.13) 07/13/21 05:56 APTT 28.4 Sec. (24.2-36.6) 07/11/21 19:34 D-Dimer 705.15 ng/mlDDU (0-234) H 07/16/21 08:56 Sodium 137 mmol/L (137-145) 07/13/21 05:56 Potassium 3.9 mmol/L (3.6-5.0) 07/13/21 05:56 Chloride 99.5 mmol/L (98-107) 07/13/21 05:56 Carbon Dioxide 24 mmol/L (22-30) 07/13/21 05:56 Anion Gap 17 mmol/L 07/13/21 05:56 BUN 16 mg/dL (7-17) 07/13/21 05:56 Creatinine 0.6 mg/dL (0.6-1.2) 07/13/21 05:56 Estimated GFR > 60 ml/min 07/13/21 05:56 BUN/Creatinine Ratio 27 % 07/13/21 05:56 Glucose 103 mg/dL (65-100) H 07/13/21 05:56 Calcium 9.0 mg/dL (8.4-10.2) 07/13/21 05:56 Total Bilirubin 0.40 mg/dL (0.1-1.2) 07/11/21 19:34 AST 26 units/L (5-40) 07/11/21 19:34 ALT 20 units/L (7-56) 07/11/21 19:34 Alkaline Phosphatase 37 units/L (35-129) 07/11/21 19:34 NT-Pro-B Natriuret Pep 274.1 pg/mL (0-900) 07/14/21 06:51 Total Protein 7.2 g/dL (6.3-8.2) 07/11/21 19:34 Albumin 3.4 g/dL (3.9-5) L 07/11/21 19:34 Albumin/Globulin Ratio 0.9 % 07/11/21 19:34 TSH 3.060 mlU/mL (0.270-4.200) 07/14/21 06:51 Free T4 1.54 ng/dL (0.76-1.46) H 07/16/21 08:56 Urine Color Red (Yellow) 07/12/21 Unknown Urine Turbidity Cloudy (Clear) 07/12/21 Unknown Urine pH 6.0 (5.0-7.0) 07/12/21 Unknown Ur Specific [place] 1.017 (1.003-1.030) 07/12/21 Unknown Urine Protein 100 mg/dl mg/dL (Negative) 07/12/21 Unknown Urine Glucose (UA) Neg mg/dL (Negative) 07/12/21 Unknown Urine Ketones Tr mg/dL (Negative) 07/12/21 Unknown Urine Blood Lg (Negative) 07/12/21 Unknown Urine Nitrite Neg (Negative) 07/12/21 Unknown Urine Bilirubin Neg (Negative) 07/12/21 Unknown Urine Urobilinogen < 2.0 mg/dL (<2.0) 07/12/21 Unknown Ur Leukocyte Esterase Mod (Negative) 07/12/21 Unknown Urine WBC (Auto) 23.0 /HPF (0.0-6.0) H 07/12/21 Unknown Urine RBC (Auto) 38.0 /HPF (0.0-6.0) 07/12/21 Unknown U Epithel Cells (Auto) 3.0 /HPF (0-13.0) 07/12/21 Unknown Urine Bacteria (Auto) 2+ /HPF (Negative) 07/12/21 Unknown Urine Mucus Few /HPF 07/12/21 Unknown Coronavirus (PCR) Negative (Negative) 07/17/21 08:55 Lott/IV: Voiding Method Incontinent Active Medications - Current Medications Current Medications: Generic Name Dose Route Start Last Admin Trade Name Freq PRN Reason Stop Dose Admin Acetaminophen 650 mg 07/12/21 03:12 07/17/21 18:47 Acetaminophen 325 Mg Tab PO 650 mg Q4H PRN Administration Pain MILD(1-3)/Fever >100.5/CHENG Albuterol 2.5 mg 07/12/21 03:12 Albuterol 2.5 Mg/3 Ml Nebu IH Q3HRT PRN Shortness Of Breath Albuterol/Ipratropium 1 ampul 07/17/21 08:00 07/18/21 09:21 Ipratropium/Albuterol Sulfate 3 Ml Ampul.Neb IH 1 ampul BIDRT SWATI Administration Arformoterol Tartrate 15 mcg 07/13/21 20:00 07/18/21 09:21 Arformoterol 15 Mcg/2 Ml Nebu IH 15 mcg Q12HRT SWATI Administration Budesonide 1 mg 07/13/21 20:00 07/18/21 09:15 Budesonide 0.5 Mg/2 Ml Nebu IH 1 mg Q12HRT SWATI Administration Divalproex Sodium 250 mg 07/13/21 18:00 07/18/21 05:29 Divalproex Sprinkle 125 Mg Cap PO 250 mg Q12H SWATI Administration Famotidine 20 mg 07/12/21 10:00 07/18/21 09:35 Famotidine 20 Mg Tab PO 20 mg BID SWATI Administration Fenofibrate 145 mg 07/14/21 10:00 07/18/21 09:35 Fenofibrate 145 Mg Tab PO 145 mg DAILY SWATI Administration Lisinopril 5 mg 07/14/21 10:00 07/18/21 09:34 Lisinopril 5 Mg Tab PO 5 mg QDAY SWATI Administration Melatonin 5 mg 07/13/21 22:00 07/17/21 21:03 Melatonin 5 Mg Tab PO 5 mg QHS SWATI Administration Metoprolol Tartrate 25 mg 07/13/21 22:00 07/18/21 09:35 Metoprolol Tartrate 25 Mg Tab PO 25 mg BID SWATI Administration Ondansetron HCl 4 mg 07/12/21 03:12 Ondansetron 4 Mg/2 Ml Inj IV Q8H PRN Nausea And Vomiting Pantoprazole Sodium 20 mg 07/14/21 10:00 07/18/21 09:34 Pantoprazole 20 Mg Tab PO 20 mg QDAY SWATI Administration Pravastatin Sodium 40 mg 07/13/21 22:00 07/17/21 21:03 Pravastatin 40 Mg Tab PO 40 mg QHS SWATI Administration Senna/Docusate Sodium 1 tab 07/13/21 22:00 07/18/21 09:34 Sennosides/Docusate Sodium 8.6/50 Mg Tab PO 1 tab BID SWATI Administration Sodium Chloride 10 ml 07/12/21 10:00 07/17/21 21:16 Sodium Chloride 0.9% 10 Ml Flush Syringe IV Not Given BID SWATI Sodium Chloride 10 ml 07/12/21 03:12 Sodium Chloride 0.9% 10 Ml Flush Syringe IV PRN PRN LINE FLUSH Trazodone HCl 50 mg 07/13/21 22:00 07/17/21 21:03 Trazodone 50 Mg Tab PO 50 mg QHS SWATI Administration
[2021-07-18] MEDS: traZODone 50 MG TAB PO SCH (21:11)
[2021-07-18] MEDS: MELATONIN 5 MG TAB PO SCH (21:11)
[2021-07-18] MEDS: PRAVASTATIN 40 MG TAB PO SCH (21:11)
[2021-07-19] MEDS: DIVALPROEX SPRINKLE 125 MG CAP PO SCH ×2 (05:12→19:57)
[2021-07-19] MEDS: BUDESONIDE 0.5 MG/2 ML NEBU IH SCH ×2 (08:37→20:43)
[2021-07-19] MEDS: IPRATROPIUM/ALBUTEROL SULFATE 3 ML AMPUL.NEB IH SCH ×2 (08:37→20:43)
[2021-07-19] MEDS: ARFORMOTEROL 15 MCG/2 ML NEBU IH SCH ×2 (08:37→20:43)
[2021-07-19] MEDS: METOPROLOL TARTRATE 25 MG TAB PO SCH ×2 (10:49→21:12)
[2021-07-19] MEDS: PANTOPRAZOLE 20 MG TAB PO SCH (10:59)
[2021-07-19] MEDS: SENNOSIDES/DOCUSATE SODIUM 8.6/50 MG TAB PO SCH ×2 (10:59→21:13)
[2021-07-19] MEDS: FAMOTIDINE 20 MG TAB PO SCH ×2 (10:59→21:12)
[2021-07-19] MEDS: FENOFIBRATE 145 MG TAB PO SCH (10:59)
[2021-07-19] MEDS: ACETAMINOPHEN 325 MG TAB PO PRN ×2 (10:59→21:13)
--- NOTE | 2021-07-19 11:04 | Progress Note ---
Assessment and Plan Assessment and plan: 66-year-old female with history of severe obesity with BMI 55, mild dementia dementia, obstructive sleep apnea, CHF, hypertension and fully ambulatory was living with her daughter when she was admitted to [facility] hospital couple of weeks ago in 06/2021 and was diagnosed with the COVID-19 pneumonia, UTI and bloodstream infection and was discharged to subacute rehab on IV antibiotics and on Eliquis for high D-dimer likely related to brought in by EMS from her senior care due to vaginal bleeding which has been ongoing for 2 weeks. Records with patient and daughter patient had no menses for for couple of years and then menses resumed about years ago but patient did not get this evaluated. According daughter, menses are sometimes heavy. Patient is sent to ED for evaluation since having bleeding for 2 weeks with passed some clots. Some menstrual type of abdominal cramps but denies any sig nificant abdominal pain. She also denies any associated headache/vision change, neck pain, chest pain, shortness of breath, nausea/vomiting, dysuria, melena/hematochezia, or any other complaints. She has history of heart failure and there was seeing for several years then quit seeing him many years ago. In the ER patient hemoglobin is 13.5 and hematocrit 41.6. WBC 7.7, PT is 15.3 INR 1.09. Urine suggestive of UTI. Patient has no fever or chills. Subsequently Case discussed with on-call STOCK LAYER doctor who recommends to admit under hospitalist service and she will consult the patient. (1) uterine bleeding with history of menses after a gap, age 66 years Worse since placed on Eliquis Current Visit: Yes Status: Acute Plan to address problem: Currently no vaginal bleeding off Eliquis which was started recently for elevated D-Dimer in the setting of acute COVID-19 infection. However, no documented thromboembolism in the medical records obtained from [facility]. pelvic examination performed by STOCK LAYER revealed dark blood on glove. Patient denies abdominal pains or cramping. Patient reports having menses since 2 years after interruption for a couple of years. Not previously worked up by STOCK LAYER. CT abdomen/pelvis shows minimally prominent endometrium and a calcified fibroid. Vaginal ultrasound shows borderline endometrial thickness, 0.55 Centimeters, fibroid, right ovary surgically absent. ovary is obscured by bowel gas. Urinary bladder unremarkable. Patient denies dizziness, lightheadedness, chest pains or palpitations. STOCK LAYER recommends endometrial biopsy if endometrial thickness is more than 1 cm. Patient could be followed as outpatient. Dr. Avila reports that Patient to follow up as outpatient for endometrial biopsy. Dr. Avila does not have the ability to perform this procedure while patient is in house. NO acute intervention necessary. The patient will be scheduled for follow-up at discharge. GEAR HOBBER teaching to include: It is normal to have fluctuations in bleeding and new onset bleeding when placed on any anticoagulant. US not suspicious for malignancy. (2) Anticoagulated with Eliquis Current Visit: Yes Status: Acute Plan to address problem: We hold anticoagulation Eliquis for now. Vaginal bleeding almost stopped. I ndication for Eliquis started recently is for elevated D-Dimer in the setting of acute COVID-19 infection. However, no documented thromboembolism in the medical records obtained from [facility]. Risks appear to be higher than the benefits of anticoagulation in the absence of demonstrable as patient is having significant uterine bleeding with anticoagulation. (3) recently treated UTI with bacteremia, current urine cultures grew skin dottie Current Visit: Yes Status: Acute Plan to address problem: Patient was recently diagnosed with UTI and bacteremia at [facility] and sent home on IV antibiotics. Currently has no fever, dysuria. Empirically started on Rocephin Rocephin 2 g IV daily. Blood culture negative. Urine culture grew skin dottie. Discontinue Rocephin. Pelvic ultrasound shows unremarkable urinary bladder. Bedside bladder scan shows no urinary retention. (4) GERD (gastroesophageal reflux disease) Current Visit: Yes Status: Acute Plan to address problem: Pepcid 20 mg p.o. twice daily for GI prophylaxis. We will continue the home medication (5) mild dementia Current Visit: Yes Status: Acute Plan to address problem: Stable. Patient alert and oriented and answers to questions appropriately. She does get occasionally confused as described by her daughter. We will continue home medication (6) Hypertension Current Visit: Yes Status: Acute Plan to address problem: Hydralazine 10 mg IV every 6 hours as needed. We will continue the home medication. We will monitor the blood pressure closely (7) severe obesity, BMI 55, obstructive sleep apnea Current Visit: Yes Status: Acute Plan to address problem: Oxygen via nasal cannula 3 L/min. DuoNeb by nebulizer every 4 hours. Outpatient sleep study (8) remote history of heart failure Current Visit: Yes Status: Acute Plan to address problem: Patient was seeing a air shovel operator, Dr. Larose for several years but then quit seeing him many years ago. Currently appears to be euvolemic. Has mild sinus tachycardia but baseline rate unknown. (9) Uterine fibroid Current Visit: Yes Status: Acute Plan to address problem: Seen on CT on the ultrasound. GEAR HOBBER will see the patient in consultation. Recheck CBC in the morning (10) DVT prophylaxis Current Visit: Yes Status: Acute Plan to address problem: SCD for DVT prophylaxis. Pepcid 20 mg p.o. twice daily for GI prophylaxis. Patient is a full code Discussed with the patient, nursing staff, her daughter as well as STOCK LAYER. Discharge disposition: Patient is stable for discharge pending senior care placement. Daughter refuses to take her back home stating she is unable to care for her anymore. Daughter is refusing to talk to patient. Patient is poorly ambulatory. 07/17: Case management update for 07/17/2021. SW spoke with daughter about the patient's discharge. The SW informed daughter about patient's liability and hospital bill if she is left in the hospital. The SW explained that she will have to contact APS to file an APS report under neglect if she is not cooperative with post discharge care. The daughter reports that the patient was at [facility] and rehab where she had some complaints that the patient was not being cared for. The daughter reports that the patient was left in urine, not changed and turn when needed. The daughter says that the patient did not receive any PT while at facility. The SW asked about the Maxed out days at facility and she reports that the facility tried to find another place for patient but her insurance days had . The daughter says that the patient is not able to return home cause she is not able to care for her and that know one will be home with her. he daughter says that she will contact her cotton jammer to get involved. SW informed that we have to have plans for patient. 07/18: Patient still awaiting placement. Await case management recommendations with regards to placement 07/19: I called for [id number] with physician associated with insurance company. Await approval for SNF placement History Interval history: No new issues overnight Hospitalist Physical - Constitutional Vitals: Temp Pulse Resp BP Pulse Ox 98.4 F 85 16 120/75 95 07/19/21 04:17 07/19/21 08:38 07/19/21 08:38 07/19/21 04:17 07/19/21 04:17 General appearance: Present: no acute distress, obese (Severe obesity, BMI 55.) - EENT Eyes: Present: PERRL, EOM intact ENT: hearing intact, clear oral mucosa, dentition normal - Neck Neck: Present: supple, normal ROM - Respiratory Respiratory effort: normal Respiratory: bilateral: CTA - Cardiovascular Rhythm: regular Heart Sounds: Present: S1 & S2. Absent: gallop, rub - Extremities Extremities: no ischemia, No edema, Full ROM - Abdominal General gastrointestinal: soft, non-tender, non-distended, normal bowel sounds - Integumentary Integumentary: Present: clear, warm, dry - Neurologic Neurologic: CNII-XII intact, moves all extremities Results - Labs CBC & Chem 7: 07/14/21 06:51 07/13/21 05:56 Labs: Laboratory Last Values WBC 8.0 K/mm3 (4.5-11.0) 07/14/21 06:51 RBC 4.06 M/mm3 (3.65-5.03) 07/14/21 06:51 Hgb 11.9 gm/dl (10.1-14.3) 07/14/21 06:51 Hct 37.2 % (30.3-42.9) 07/14/21 06:51 MCV 92 fl (79-97) 07/14/21 06:51 MCH 29 pg (28-32) 07/14/21 06:51 MCHC 32 % (30-34) 07/14/21 06:51 RDW 15.2 % (13.2-15.2) 07/14/21 06:51 Plt Count 351 K/mm3 (140-440) 07/14/21 06:51 Lymph % (Auto) 18.8 % (13.4-35.0) 07/14/21 06:51 [place] % (Auto) 10.4 % (0.0-7.3) H 07/14/21 06:51 Eos % (Auto) 2.2 % (0.0-4.3) 07/14/21 06:51 Baso % (Auto) 0.8 % (0.0-1.8) 07/14/21 06:51 Lymph # (Auto) 1.5 K/mm3 (1.2-5.4) 07/14/21 06:51 [place] # (Auto) 0.8 K/mm3 (0.0-0.8) 07/14/21 06:51 Eos # (Auto) 0.2 K/mm3 (0.0-0.4) 07/14/21 06:51 Baso # (Auto) 0.1 K/mm3 (0.0-0.1) 07/14/21 06:51 Seg Neutrophils % 67.8 % (40.0-70.0) 07/14/21 06:51 Seg Neutrophils # 5.4 K/mm3 (1.8-7.7) 07/14/21 06:51 PT 15.2 Sec. (12.2-14.9) H 07/13/21 05:56 INR 1.08 (0.87-1.13) 07/13/21 05:56 APTT 28.4 Sec. (24.2-36.6) 07/11/21 19:34 D-Dimer 705.15 ng/mlDDU (0-234) H 07/16/21 08:56 Sodium 137 mmol/L (137-145) 07/13/21 05:56 Potassium 3.9 mmol/L (3.6-5.0) 07/13/21 05:56 Chloride 99.5 mmol/L (98-107) 07/13/21 05:56 Carbon Dioxide 24 mmol/L (22-30) 07/13/21 05:56 Anion Gap 17 mmol/L 07/13/21 05:56 BUN 16 mg/dL (7-17) 07/13/21 05:56 Creatinine 0.6 mg/dL (0.6-1.2) 07/13/21 05:56 Estimated GFR > 60 ml/min 07/13/21 05:56 BUN/Creatinine Ratio 27 % 07/13/21 05:56 Glucose 103 mg/dL (65-100) H 07/13/21 05:56 Calcium 9.0 mg/dL (8.4-10.2) 07/13/21 05:56 Total Bilirubin 0.40 mg/dL (0.1-1.2) 07/11/21 19:34 AST 26 units/L (5-40) 07/11/21 19:34 ALT 20 units/L (7-56) 07/11/21 19:34 Alkaline Phosphatase 37 units/L (35-129) 07/11/21 19:34 NT-Pro-B Natriuret Pep 274.1 pg/mL (0-900) 07/14/21 06:51 Total Protein 7.2 g/dL (6.3-8.2) 07/11/21 19:34 Albumin 3.4 g/dL (3.9-5) L 07/11/21 19:34 Albumin/Globulin Ratio 0.9 % 07/11/21 19:34 TSH 3.060 mlU/mL (0.270-4.200) 07/14/21 06:51 Free T4 1.54 ng/dL (0.76-1.46) H 07/16/21 08:56 Urine Color Red (Yellow) 07/12/21 Unknown Urine Turbidity Cloudy (Clear) 07/12/21 Unknown Urine pH 6.0 (5.0-7.0) 07/12/21 Unknown Ur Specific [place] 1.017 (1.003-1.030) 07/12/21 Unknown Urine Protein 100 mg/dl mg/dL (Negative) 07/12/21 Unknown Urine Glucose (UA) Neg mg/dL (Negative) 07/12/21 Unknown Urine Ketones Tr mg/dL (Negative) 07/12/21 Unknown Urine Blood Lg (Negative) 07/12/21 Unknown Urine Nitrite Neg (Negative) 07/12/21 Unknown Urine Bilirubin Neg (Negative) 07/12/21 Unknown Urine Urobilinogen < 2.0 mg/dL (<2.0) 07/12/21 Unknown Ur Leukocyte Esterase Mod (Negative) 07/12/21 Unknown Urine WBC (Auto) 23.0 /HPF (0.0-6.0) H 07/12/21 Unknown Urine RBC (Auto) 38.0 /HPF (0.0-6.0) 07/12/21 Unknown U Epithel Cells (Auto) 3.0 /HPF (0-13.0) 07/12/21 Unknown Urine Bacteria (Auto) 2+ /HPF (Negative) 07/12/21 Unknown Urine Mucus Few /HPF 07/12/21 Unknown Coronavirus (PCR) Negative (Negative) 07/17/21 08:55 Lott/IV: Voiding Method External Female Catheter Active Medications - Current Medications Current Medications: Generic Name Dose Route Start Last Admin Trade Name Freq PRN Reason Stop Dose Admin Acetaminophen 650 mg 07/12/21 03:12 07/19/21 10:59 Acetaminophen 325 Mg Tab PO 650 mg Q4H PRN Administration Pain MILD(1-3)/Fever >100.5/CHENG Albuterol 2.5 mg 07/12/21 03:12 Albuterol 2.5 Mg/3 Ml Nebu IH Q3HRT PRN Shortness Of Breath Albuterol/Ipratropium 1 ampul 07/17/21 08:00 07/19/21 08:37 Ipratropium/Albuterol Sulfate 3 Ml Ampul.Neb IH 1 ampul BIDRT SWATI Administration Arformoterol Tartrate 15 mcg 07/13/21 20:00 07/19/21 08:37 Arformoterol 15 Mcg/2 Ml Nebu IH 15 mcg Q12HRT SWATI Administration Budesonide 1 mg 07/13/21 20:00 07/19/21 08:37 Budesonide 0.5 Mg/2 Ml Nebu IH 1 mg Q12HRT SWATI Administration Divalproex Sodium 250 mg 07/13/21 18:00 07/19/21 05:12 Divalproex Sprinkle 125 Mg Cap PO 250 mg Q12H SWATI Administration Famotidine 20 mg 07/12/21 10:00 07/19/21 10:59 Famotidine 20 Mg Tab PO 20 mg BID SWATI Administration Fenofibrate 145 mg 07/14/21 10:00 07/19/21 10:59 Fenofibrate 145 Mg Tab PO 145 mg DAILY SWATI Administration Lisinopril 5 mg 07/14/21 10:00 07/18/21 09:34 Lisinopril 5 Mg Tab PO 5 mg QDAY SWATI Administration Melatonin 5 mg 07/13/21 22:00 07/18/21 21:11 Melatonin 5 Mg Tab PO 5 mg QHS SWATI Administration Metoprolol Tartrate 25 mg 07/13/21 22:00 07/18/21 21:11 Metoprolol Tartrate 25 Mg Tab PO 25 mg BID SWATI Administration Ondansetron HCl 4 mg 07/12/21 03:12 Ondansetron 4 Mg/2 Ml Inj IV Q8H PRN Nausea And Vomiting Pantoprazole Sodium 20 mg 07/14/21 10:00 07/19/21 10:59 Pantoprazole 20 Mg Tab PO 20 mg QDAY SWATI Administration Pravastatin Sodium 40 mg 07/13/21 22:00 07/18/21 21:11 Pravastatin 40 Mg Tab PO 40 mg QHS SWATI Administration Senna/Docusate Sodium 1 tab 07/13/21 22:00 07/19/21 10:59 Sennosides/Docusate Sodium 8.6/50 Mg Tab PO 1 tab BID SWATI Administration Sodium Chloride 10 ml 07/12/21 10:00 07/18/21 21:11 Sodium Chloride 0.9% 10 Ml Flush Syringe IV 10 ml BID SWATI Administration Sodium Chloride 10 ml 07/12/21 03:12 Sodium Chloride 0.9% 10 Ml Flush Syringe IV PRN PRN LINE FLUSH Trazodone HCl 50 mg 07/13/21 22:00 07/18/21 21:11 Trazodone 50 Mg Tab PO 50 mg QHS SWATI Administration Nutrition/Malnutrition Assess - Dietary Evaluation Nutrition/Malnutrition Findings: Nutrition Notes Start: 07/19/21 10:37 Freq: Status: Active Protocol: Document 07/19/21 10:37 AUBREE (Rec: 07/19/21 10:42 AUBREE [id number]) Nutrition Notes Need for Assessment generated from: LOS Initial or Follow up Brief Note Current Diet Cardiac Height 5 ft 7 in Weight 146.7 kg Delta Body Weight (kg) 61.36 BMI 50.6 Weight Status Morbidly Obese Subjective/Other Information Pt screened for LOS. She has consumed 75% meals since admission. She is awaiting placement. Percent of energy/protein needs met: 95% energy 61% pro Burn Absent Trauma Absent Current % PO Good (75-100%) Minimum of two criteria No Is patient on ventilator? No Is Patient Ambulatory and/or Out of Bed No REE-([facility]-confined to bed) 2458.032 Kcal/Kg value to use for calculation 12 Approximate Energy Requirements Using 1760 kcal/Kg Calculation Used for Recommendations Kcal/kg Additional Notes Pro needs 1-1.2g/kg adjBW: 104 -125g/day Fluid needs 1ml/kcal Nutrition Intervention Revisit per MD consult or patient Sign Off request:
[2021-07-19] MEDS: LISINOPRIL 5 MG TAB PO SCH (11:50)
[2021-07-19] MEDS: PRAVASTATIN 40 MG TAB PO SCH (21:11)
[2021-07-19] MEDS: traZODone 50 MG TAB PO SCH (21:12)
[2021-07-19] MEDS: MELATONIN 5 MG TAB PO SCH (21:12)
[2021-07-19] MEDS: ONDANSETRON 4 MG/2 ML INJ IV PRN (23:39)
[2021-07-20] MEDS: ACETAMINOPHEN 325 MG TAB PO PRN ×3 (04:25→19:15)
[2021-07-20] MEDS: DIVALPROEX SPRINKLE 125 MG CAP PO SCH ×2 (06:50→17:34)
[2021-07-20] MEDS: METOPROLOL TARTRATE 25 MG TAB PO SCH ×2 (09:09→22:39)
[2021-07-20] MEDS: FAMOTIDINE 20 MG TAB PO SCH ×2 (09:10→21:38)
[2021-07-20] MEDS: FENOFIBRATE 145 MG TAB PO SCH (09:10)
[2021-07-20] MEDS: PANTOPRAZOLE 20 MG TAB PO SCH (09:10)
[2021-07-20] MEDS: SENNOSIDES/DOCUSATE SODIUM 8.6/50 MG TAB PO SCH ×2 (09:11→21:38)
[2021-07-20] MEDS: LISINOPRIL 5 MG TAB PO SCH (09:11)
[2021-07-20] MEDS: ARFORMOTEROL 15 MCG/2 ML NEBU IH SCH ×2 (09:44→21:13)
[2021-07-20] MEDS: BUDESONIDE 0.5 MG/2 ML NEBU IH SCH ×2 (09:44→21:14)
[2021-07-20] MEDS: IPRATROPIUM/ALBUTEROL SULFATE 3 ML AMPUL.NEB IH SCH ×2 (09:45→21:14)
--- NOTE | 2021-07-20 10:23 | Progress Note ---
Assessment and Plan Assessment and plan: 66-year-old female with history of severe obesity with BMI 55, mild dementia dementia, obstructive sleep apnea, CHF, hypertension and fully ambulatory was living with her daughter when she was admitted to [facility] hospital couple of weeks ago in 06/2021 and was diagnosed with the COVID-19 pneumonia, UTI and bloodstream infection and was discharged to subacute rehab on IV antibiotics and on Eliquis for high D-dimer likely related to brought in by EMS from her skilled nursing due to vaginal bleeding which has been ongoing for 2 weeks. Records with patient and daughter patient had no menses for for couple of years and then menses resumed about years ago but patient did not get this evaluated. According daughter, menses are sometimes heavy. Patient is sent to ED for evaluation since having bleeding for 2 weeks with passed some clots. Some menstrual type of abdominal cramps but denies any sig nificant abdominal pain. She also denies any associated headache/vision change, neck pain, chest pain, shortness of breath, nausea/vomiting, dysuria, melena/hematochezia, or any other complaints. She has history of heart failure and there was seeing for several years then quit seeing him many years ago. In the ER patient hemoglobin is 13.5 and hematocrit 41.6. WBC 7.7, PT is 15.3 INR 1.09. Urine suggestive of UTI. Patient has no fever or chills. Subsequently Case discussed with on-call BROACH OPERATOR doctor who recommends to admit under hospitalist service and she will consult the patient. (1) uterine bleeding with history of menses after a gap, age 66 years Worse since placed on Eliquis Current Visit: Yes Status: Acute Plan to address problem: Currently no vaginal bleeding off Eliquis which was started recently for elevated D-Dimer in the setting of acute COVID-19 infection. However, no documented thromboembolism in the medical records obtained from [facility]. pelvic examination performed by BROACH OPERATOR revealed dark blood on glove. Patient denies abdominal pains or cramping. Patient reports having menses since 2 years after interruption for a couple of years. Not previously worked up by BROACH OPERATOR. CT abdomen/pelvis shows minimally prominent endometrium and a calcified fibroid. Vaginal ultrasound shows borderline endometrial thickness, 0.55 Centimeters, fibroid, right ovary surgically absent. ovary is obscured by bowel gas. Urinary bladder unremarkable. Patient denies dizziness, lightheadedness, chest pains or palpitations. BROACH OPERATOR recommends endometrial biopsy if endometrial thickness is more than 1 cm. Patient could be followed as outpatient. Dr. Avila reports that Patient to follow up as outpatient for endometrial biopsy. Dr. Avila does not have the ability to perform this procedure while patient is in house. NO acute intervention necessary. The patient will be scheduled for follow-up at discharge. TUBE MILL OPERATOR teaching to include: It is normal to have fluctuations in bleeding and new onset bleeding when placed on any anticoagulant. US not suspicious for malignancy. (2) Anticoagulated with Eliquis Current Visit: Yes Status: Acute Plan to address problem: We hold anticoagulation Eliquis for now. Vaginal bleeding almost stopped. I ndication for Eliquis started recently is for elevated D-Dimer in the setting of acute COVID-19 infection. However, no documented thromboembolism in the medical records obtained from [facility]. Risks appear to be higher than the benefits of anticoagulation in the absence of demonstrable as patient is having significant uterine bleeding with anticoagulation. (3) recently treated UTI with bacteremia, current urine cultures grew skin dottie Current Visit: Yes Status: Acute Plan to address problem: Patient was recently diagnosed with UTI and bacteremia at [facility] and sent home on IV antibiotics. Currently has no fever, dysuria. Empirically started on Rocephin Rocephin 2 g IV daily. Blood culture negative. Urine culture grew skin dottie. Discontinue Rocephin. Pelvic ultrasound shows unremarkable urinary bladder. Bedside bladder scan shows no urinary retention. (4) GERD (gastroesophageal reflux disease) Current Visit: Yes Status: Acute Plan to address problem: Pepcid 20 mg p.o. twice daily for GI prophylaxis. We will continue the home medication (5) mild dementia Current Visit: Yes Status: Acute Plan to address problem: Stable. Patient alert and oriented and answers to questions appropriately. She does get occasionally confused as described by her daughter. We will continue home medication (6) Hypertension Current Visit: Yes Status: Acute Plan to address problem: Hydralazine 10 mg IV every 6 hours as needed. We will continue the home medication. We will monitor the blood pressure closely (7) severe obesity, BMI 55, obstructive sleep apnea Current Visit: Yes Status: Acute Plan to address problem: Oxygen via nasal cannula 3 L/min. DuoNeb by nebulizer every 4 hours. Outpatient sleep study (8) remote history of heart failure Current Visit: Yes Status: Acute Plan to address problem: Patient was seeing a loft patternmaker, Dr. Larose for several years but then quit seeing him many years ago. Currently appears to be euvolemic. Has mild sinus tachycardia but baseline rate unknown. (9) Uterine fibroid Current Visit: Yes Status: Acute Plan to address problem: Seen on CT on the ultrasound. TUBE MILL OPERATOR will see the patient in consultation. Recheck CBC in the morning (10) DVT prophylaxis Current Visit: Yes Status: Acute Plan to address problem: SCD for DVT prophylaxis. Pepcid 20 mg p.o. twice daily for GI prophylaxis. Patient is a full code Discussed with the patient, nursing staff, her daughter as well as BROACH OPERATOR. Discharge disposition: Patient is stable for discharge pending skilled nursing placement. Daughter refuses to take her back home stating she is unable to care for her anymore. Daughter is refusing to talk to patient. Patient is poorly ambulatory. 07/17: Case management update for 07/17/2021. SW spoke with daughter about the patient's discharge. The SW informed daughter about patient's liability and hospital bill if she is left in the hospital. The SW explained that she will have to contact APS to file an APS report under neglect if she is not cooperative with post discharge care. The daughter reports that the patient was at [facility] and rehab where she had some complaints that the patient was not being cared for. The daughter reports that the patient was left in urine, not changed and turn when needed. The daughter says that the patient did not receive any PT while at facility. The SW asked about the Maxed out days at facility and she reports that the facility tried to find another place for patient but her insurance days had . The daughter says that the patient is not able to return home cause she is not able to care for her and that know one will be home with her. he daughter says that she will contact her machine clipper to get involved. SW informed that we have to have plans for patient. 07/18: Patient still awaiting placement. Await case management recommendations with regards to placement 07/19: I called for [id number] with physician associated with insurance company. Await approval for SNF placement 07/20: Patient was denied for rehab services at [facility]. Therefore, awaiting placement to [facility] for long-term care. Case management following History Interval history: No new issues overnight Hospitalist Physical - Constitutional Vitals: Temp Pulse Resp BP Pulse Ox 97.9 F 87 17 119/75 95 07/20/21 08:12 07/20/21 09:45 07/20/21 09:45 07/20/21 08:12 07/20/21 08:33 General appearance: Present: no acute distress, obese (Severe obesity, BMI 55.) - EENT Eyes: Present: PERRL, EOM intact ENT: hearing intact, clear oral mucosa, dentition normal - Neck Neck: Present: supple, normal ROM - Respiratory Respiratory effort: normal Respiratory: bilateral: CTA - Cardiovascular Rhythm: regular Heart Sounds: Present: S1 & S2. Absent: gallop, rub - Extremities Extremities: no ischemia, No edema, Full ROM - Abdominal General gastrointestinal: soft, non-tender, non-distended, normal bowel sounds - Integumentary Integumentary: Present: clear, warm, dry - Neurologic Neurologic: CNII-XII intact, moves all extremities Results - Labs CBC & Chem 7: 07/14/21 06:51 07/13/21 05:56 Labs: Laboratory Last Values WBC 8.0 K/mm3 (4.5-11.0) 07/14/21 06:51 RBC 4.06 M/mm3 (3.65-5.03) 07/14/21 06:51 Hgb 11.9 gm/dl (10.1-14.3) 07/14/21 06:51 Hct 37.2 % (30.3-42.9) 07/14/21 06:51 MCV 92 fl (79-97) 07/14/21 06:51 MCH 29 pg (28-32) 07/14/21 06:51 MCHC 32 % (30-34) 07/14/21 06:51 RDW 15.2 % (13.2-15.2) 07/14/21 06:51 Plt Count 351 K/mm3 (140-440) 07/14/21 06:51 Lymph % (Auto) 18.8 % (13.4-35.0) 07/14/21 06:51 [place] % (Auto) 10.4 % (0.0-7.3) H 07/14/21 06:51 Eos % (Auto) 2.2 % (0.0-4.3) 07/14/21 06:51 Baso % (Auto) 0.8 % (0.0-1.8) 07/14/21 06:51 Lymph # (Auto) 1.5 K/mm3 (1.2-5.4) 07/14/21 06:51 [place] # (Auto) 0.8 K/mm3 (0.0-0.8) 07/14/21 06:51 Eos # (Auto) 0.2 K/mm3 (0.0-0.4) 07/14/21 06:51 Baso # (Auto) 0.1 K/mm3 (0.0-0.1) 07/14/21 06:51 Seg Neutrophils % 67.8 % (40.0-70.0) 07/14/21 06:51 Seg Neutrophils # 5.4 K/mm3 (1.8-7.7) 07/14/21 06:51 PT 15.2 Sec. (12.2-14.9) H 07/13/21 05:56 INR 1.08 (0.87-1.13) 07/13/21 05:56 APTT 28.4 Sec. (24.2-36.6) 07/11/21 19:34 D-Dimer 705.15 ng/mlDDU (0-234) H 07/16/21 08:56 Sodium 137 mmol/L (137-145) 07/13/21 05:56 Potassium 3.9 mmol/L (3.6-5.0) 07/13/21 05:56 Chloride 99.5 mmol/L (98-107) 07/13/21 05:56 Carbon Dioxide 24 mmol/L (22-30) 07/13/21 05:56 Anion Gap 17 mmol/L 07/13/21 05:56 BUN 16 mg/dL (7-17) 07/13/21 05:56 Creatinine 0.6 mg/dL (0.6-1.2) 07/13/21 05:56 Estimated GFR > 60 ml/min 07/13/21 05:56 BUN/Creatinine Ratio 27 % 07/13/21 05:56 Glucose 103 mg/dL (65-100) H 07/13/21 05:56 Calcium 9.0 mg/dL (8.4-10.2) 07/13/21 05:56 Total Bilirubin 0.40 mg/dL (0.1-1.2) 07/11/21 19:34 AST 26 units/L (5-40) 07/11/21 19:34 ALT 20 units/L (7-56) 07/11/21 19:34 Alkaline Phosphatase 37 units/L (35-129) 07/11/21 19:34 NT-Pro-B Natriuret Pep 274.1 pg/mL (0-900) 07/14/21 06:51 Total Protein 7.2 g/dL (6.3-8.2) 07/11/21 19:34 Albumin 3.4 g/dL (3.9-5) L 07/11/21 19:34 Albumin/Globulin Ratio 0.9 % 07/11/21 19:34 TSH 3.060 mlU/mL (0.270-4.200) 07/14/21 06:51 Free T4 1.54 ng/dL (0.76-1.46) H 07/16/21 08:56 Urine Color Red (Yellow) 07/12/21 Unknown Urine Turbidity Cloudy (Clear) 07/12/21 Unknown Urine pH 6.0 (5.0-7.0) 07/12/21 Unknown Ur Specific [place] 1.017 (1.003-1.030) 07/12/21 Unknown Urine Protein 100 mg/dl mg/dL (Negative) 07/12/21 Unknown Urine Glucose (UA) Neg mg/dL (Negative) 07/12/21 Unknown Urine Ketones Tr mg/dL (Negative) 07/12/21 Unknown Urine Blood Lg (Negative) 07/12/21 Unknown Urine Nitrite Neg (Negative) 07/12/21 Unknown Urine Bilirubin Neg (Negative) 07/12/21 Unknown Urine Urobilinogen < 2.0 mg/dL (<2.0) 07/12/21 Unknown Ur Leukocyte Esterase Mod (Negative) 07/12/21 Unknown Urine WBC (Auto) 23.0 /HPF (0.0-6.0) H 07/12/21 Unknown Urine RBC (Auto) 38.0 /HPF (0.0-6.0) 07/12/21 Unknown U Epithel Cells (Auto) 3.0 /HPF (0-13.0) 07/12/21 Unknown Urine Bacteria (Auto) 2+ /HPF (Negative) 07/12/21 Unknown Urine Mucus Few /HPF 07/12/21 Unknown Coronavirus (PCR) Negative (Negative) 07/17/21 08:55 Lott/IV: Voiding Method External Female Catheter Active Medications - Current Medications Current Medications: Generic Name Dose Route Start Last Admin Trade Name Freq PRN Reason Stop Dose Admin Acetaminophen 650 mg 07/12/21 03:12 07/20/21 09:15 Acetaminophen 325 Mg Tab PO 650 mg Q4H PRN Administration Pain MILD(1-3)/Fever >100.5/CHENG Albuterol 2.5 mg 07/12/21 03:12 Albuterol 2.5 Mg/3 Ml Nebu IH Q3HRT PRN Shortness Of Breath Albuterol/Ipratropium 1 ampul 07/17/21 08:00 07/20/21 09:45 Ipratropium/Albuterol Sulfate 3 Ml Ampul.Neb IH Not Given BIDRT SWATI Arformoterol Tartrate 15 mcg 07/13/21 20:00 07/20/21 09:44 Arformoterol 15 Mcg/2 Ml Nebu IH 15 mcg Q12HRT SWATI Administration Budesonide 1 mg 07/13/21 20:00 07/20/21 09:44 Budesonide 0.5 Mg/2 Ml Nebu IH 1 mg Q12HRT SWATI Administration Divalproex Sodium 250 mg 07/13/21 18:00 07/20/21 06:50 Divalproex Sprinkle 125 Mg Cap PO 250 mg Q12H SWATI Administration Famotidine 20 mg 07/12/21 10:00 07/20/21 09:10 Famotidine 20 Mg Tab PO 20 mg BID SWATI Administration Fenofibrate 145 mg 07/14/21 10:00 07/20/21 09:10 Fenofibrate 145 Mg Tab PO 145 mg DAILY SWATI Administration Lisinopril 5 mg 07/14/21 10:00 07/20/21 09:11 Lisinopril 5 Mg Tab PO 5 mg QDAY SWATI Administration Melatonin 5 mg 07/13/21 22:00 07/19/21 21:12 Melatonin 5 Mg Tab PO 5 mg QHS SWATI Administration Metoprolol Tartrate 25 mg 07/13/21 22:00 07/20/21 09:09 Metoprolol Tartrate 25 Mg Tab PO 25 mg BID SWATI Administration Ondansetron HCl 4 mg 07/12/21 03:12 07/19/21 23:39 Ondansetron 4 Mg/2 Ml Inj IV 4 mg Q8H PRN Administration Nausea And Vomiting Pantoprazole Sodium 20 mg 07/14/21 10:00 07/20/21 09:10 Pantoprazole 20 Mg Tab PO 20 mg QDAY SWATI Administration Pravastatin Sodium 40 mg 07/13/21 22:00 07/19/21 21:11 Pravastatin 40 Mg Tab PO 40 mg QHS SWATI Administration Senna/Docusate Sodium 1 tab 07/13/21 22:00 07/20/21 09:11 Sennosides/Docusate Sodium 8.6/50 Mg Tab PO Not Given BID SWATI Sodium Chloride 10 ml 07/12/21 10:00 07/20/21 09:11 Sodium Chloride 0.9% 10 Ml Flush Syringe IV 10 ml BID SWATI Administration Sodium Chloride 10 ml 07/12/21 03:12 Sodium Chloride 0.9% 10 Ml Flush Syringe IV PRN PRN LINE FLUSH Trazodone HCl 50 mg 07/13/21 22:00 07/19/21 21:12 Trazodone 50 Mg Tab PO 50 mg QHS SWATI Administration Nutrition/Malnutrition Assess - Dietary Evaluation Nutrition/Malnutrition Findings: Nutrition Notes Start: 07/19/21 10:37 Freq: Status: Active Protocol: Document 07/19/21 10:37 AUBREE (Rec: 07/19/21 10:42 AUBREE [id number]) Nutrition Notes Need for Assessment generated from: LOS Initial or Follow up Brief Note Current Diet Cardiac Height 5 ft 7 in Weight 146.7 kg [place] Body Weight (kg) 61.36 BMI 50.6 Weight Status Morbidly Obese Subjective/Other Information Pt screened for LOS. She has consumed 75% meals since admission. She is awaiting placement. Percent of energy/protein needs met: 95% energy 61% pro Burn Absent Trauma Absent Current % PO Good (75-100%) Minimum of two criteria No Is patient on ventilator? No Is Patient Ambulatory and/or Out of Bed No REE-([facility]-confined to bed) 2458.032 Kcal/Kg value to use for calculation 12 Approximate Energy Requirements Using 1760 kcal/Kg Calculation Used for Recommendations Kcal/kg Additional Notes Pro needs 1-1.2g/kg adjBW: 104 -125g/day Fluid needs 1ml/kcal Nutrition Intervention Revisit per MD consult or patient Sign Off request:
[2021-07-20] MEDS: MELATONIN 5 MG TAB PO SCH (21:38)
[2021-07-20] MEDS: PRAVASTATIN 40 MG TAB PO SCH (21:38)
[2021-07-20] MEDS: traZODone 50 MG TAB PO SCH (21:38)
[2021-07-21] MEDS: DIVALPROEX SPRINKLE 125 MG CAP PO SCH ×2 (05:47→17:43)
--- NOTE | 2021-07-21 08:36 | Progress Note ---
Assessment and Plan Assessment and plan: 66-year-old female with history of severe obesity with BMI 55, mild dementia dementia, obstructive sleep apnea, CHF, hypertension and fully ambulatory was living with her daughter when she was admitted to [facility] couple of weeks ago in 06/2021 and was diagnosed with the COVID-19 pneumonia, UTI and bloodstream infection and was discharged to subacute rehab on IV antibiotics and on Eliquis for high D-dimer likely related to brought in by EMS from her care home due to vaginal bleeding which has been ongoing for 2 weeks. Records with patient and daughter patient had no menses for for couple of years and then menses resumed about years ago but patient did not get this evaluated. According daughter, menses are sometimes heavy. Patient is sent to ED for evaluation since having bleeding for 2 weeks with passed some clots. Some menstrual type of abdominal cramps but denies any sig nificant abdominal pain. She also denies any associated headache/vision change, neck pain, chest pain, shortness of breath, nausea/vomiting, dysuria, melena/hematochezia, or any other complaints. She has history of heart failure and there was seeing for several years then quit seeing him many years ago. In the ER patient hemoglobin is 13.5 and hematocrit 41.6. WBC 7.7, PT is 15.3 INR 1.09. Urine suggestive of UTI. Patient has no fever or chills. Subsequently Case discussed with on-call SOLAR SITE ASSESSMENT SPECIALIST doctor who recommends to admit under hospitalist service and she will consult the patient. (1) uterine bleeding with history of menses after a gap, age 66 years Worse since placed on Eliquis Current Visit: Yes Status: Acute Plan to address problem: Currently no vaginal bleeding off Eliquis which was started recently for elevated D-Dimer in the setting of acute COVID-19 infection. However, no documented thromboembolism in the medical records obtained from [facility]. pelvic examination performed by SOLAR SITE ASSESSMENT SPECIALIST revealed dark blood on glove. Patient denies abdominal pains or cramping. Patient reports having menses since 2 years after interruption for a couple of years. Not previously worked up by SOLAR SITE ASSESSMENT SPECIALIST. CT abdomen/pelvis shows minimally prominent endometrium and a calcified fibroid. Vaginal ultrasound shows borderline endometrial thickness, 0.55 Centimeters, fibroid, right ovary surgically absent. ovary is obscured by bowel gas. Urinary bladder unremarkable. Patient denies dizziness, lightheadedness, chest pains or palpitations. SOLAR SITE ASSESSMENT SPECIALIST recommends endometrial biopsy if endometrial thickness is more than 1 cm. Patient could be followed as outpatient. Dr. Avila reports that Patient to follow up as outpatient for endometrial biopsy. Dr. Avila does not have the ability to perform this procedure while patient is in house. NO acute intervention necessary. The patient will be scheduled for follow-up at discharge. OBIEE OBIA SOLUTION ARCHITECT teaching to include: It is normal to have fluctuations in bleeding and new onset bleeding when placed on any anticoagulant. US not suspicious for malignancy. (2) Anticoagulated with Eliquis Current Visit: Yes Status: Acute Plan to address problem: We hold anticoagulation Eliquis for now. Vaginal bleeding almost stopped. I ndication for Eliquis started recently is for elevated D-Dimer in the setting of acute COVID-19 infection. However, no documented thromboembolism in the medical records obtained from [facility]. Risks appear to be higher than the benefits of anticoagulation in the absence of demonstrable as patient is having significant uterine bleeding with anticoagulation. (3) recently treated UTI with bacteremia, current urine cultures grew skin dottie Current Visit: Yes Status: Acute Plan to address problem: Patient was recently diagnosed with UTI and bacteremia at [facility] and sent home on IV antibiotics. Currently has no fever, dysuria. Empirically started on Rocephin Rocephin 2 g IV daily. Blood culture negative. Urine culture grew skin dottie. Discontinue Rocephin. Pelvic ultrasound shows unremarkable urinary bladder. Bedside bladder scan shows no urinary retention. (4) GERD (gastroesophageal reflux disease) Current Visit: Yes Status: Acute Plan to address problem: Pepcid 20 mg p.o. twice daily for GI prophylaxis. We will continue the home medication (5) mild dementia Current Visit: Yes Status: Acute Plan to address problem: Stable. Patient alert and oriented and answers to questions appropriately. She does get occasionally confused as described by her daughter. We will continue home medication (6) Hypertension Current Visit: Yes Status: Acute Plan to address problem: Hydralazine 10 mg IV every 6 hours as needed. We will continue the home medication. We will monitor the blood pressure closely (7) severe obesity, BMI 55, obstructive sleep apnea Current Visit: Yes Status: Acute Plan to address problem: Oxygen via nasal cannula 3 L/min. DuoNeb by nebulizer every 4 hours. Outpatient sleep study (8) remote history of heart failure Current Visit: Yes Status: Acute Plan to address problem: Patient was seeing a supervisor pig machine, Dr. Larose for several years but then quit seeing him many years ago. Currently appears to be euvolemic. Has mild sinus tachycardia but baseline rate unknown. (9) Uterine fibroid Current Visit: Yes Status: Acute Plan to address problem: Seen on CT on the ultrasound. OBIEE OBIA SOLUTION ARCHITECT will see the patient in consultation. Recheck CBC in the morning (10) DVT prophylaxis Current Visit: Yes Status: Acute Plan to address problem: SCD for DVT prophylaxis. Pepcid 20 mg p.o. twice daily for GI prophylaxis. Patient is a full code Discussed with the patient, nursing staff, her daughter as well as SOLAR SITE ASSESSMENT SPECIALIST. Discharge disposition: Patient is stable for discharge pending care home placement. Daughter refuses to take her back home stating she is unable to care for her anymore. Daughter is refusing to talk to patient. Patient is poorly ambulatory. 07/17: Case management update for 07/17/2021. SW spoke with daughter about the patient's discharge. The SW informed daughter about patient's liability and hospital bill if she is left in the hospital. The SW explained that she will have to contact APS to file an APS report under neglect if she is not cooperative with post discharge care. The daughter reports that the patient was at [facility] and rehab where she had some complaints that the patient was not being cared for. The daughter reports that the patient was left in urine, not changed and turn when needed. The daughter says that the patient did not receive any PT while at facility. The SW asked about the Maxed out days at facility and she reports that the facility tried to find another place for patient but her insurance days had . The daughter says that the patient is not able to return home cause she is not able to care for her and that know one will be home with her. he daughter says that she will contact her tape recorder mechanic to get involved. SW informed that we have to have plans for patient. 07/18: Patient still awaiting placement. Await case management recommendations with regards to placement 07/19: I called for [id number] with physician associated with insurance company. Await approval for SNF placement 07/20: Patient was denied for rehab services at [facility]. Therefore, awaiting placement to [place] for long-term care. Case management following 07/21: Patient await placement at care home for long-term care. Patient will likely need new Covid test in a.m. Await discharge planning per case management History Interval history: No new issues overnight Hospitalist Physical - Constitutional Vitals: Temp Pulse Resp BP Pulse Ox 97.4 F L 88 18 103/52 91 07/21/21 08:09 07/21/21 08:09 07/21/21 08:09 07/21/21 08:09 07/21/21 08:09 General appearance: Present: no acute distress, obese (Severe obesity, BMI 55.) - EENT Eyes: Present: PERRL, EOM intact ENT: hearing intact, clear oral mucosa, dentition normal - Neck Neck: Present: supple, normal ROM - Respiratory Respiratory effort: normal Respiratory: bilateral: CTA - Cardiovascular Rhythm: regular Heart Sounds: Present: S1 & S2. Absent: gallop, rub - Extremities Extremities: no ischemia, No edema, Full ROM - Abdominal General gastrointestinal: soft, non-tender, non-distended, normal bowel sounds - Integumentary Integumentary: Present: clear, warm, dry - Neurologic Neurologic: CNII-XII intact, moves all extremities Results - Labs CBC & Chem 7: 07/14/21 06:51 07/13/21 05:56 Labs: Laboratory Last Values WBC 8.0 K/mm3 (4.5-11.0) 07/14/21 06:51 RBC 4.06 M/mm3 (3.65-5.03) 07/14/21 06:51 Hgb 11.9 gm/dl (10.1-14.3) 07/14/21 06:51 Hct 37.2 % (30.3-42.9) 07/14/21 06:51 MCV 92 fl (79-97) 07/14/21 06:51 MCH 29 pg (28-32) 07/14/21 06:51 MCHC 32 % (30-34) 07/14/21 06:51 RDW 15.2 % (13.2-15.2) 07/14/21 06:51 Plt Count 351 K/mm3 (140-440) 07/14/21 06:51 Lymph % (Auto) 18.8 % (13.4-35.0) 07/14/21 06:51 Price % (Auto) 10.4 % (0.0-7.3) H 07/14/21 06:51 Eos % (Auto) 2.2 % (0.0-4.3) 07/14/21 06:51 Baso % (Auto) 0.8 % (0.0-1.8) 07/14/21 06:51 Lymph # (Auto) 1.5 K/mm3 (1.2-5.4) 07/14/21 06:51 Price # (Auto) 0.8 K/mm3 (0.0-0.8) 07/14/21 06:51 Eos # (Auto) 0.2 K/mm3 (0.0-0.4) 07/14/21 06:51 Baso # (Auto) 0.1 K/mm3 (0.0-0.1) 07/14/21 06:51 Seg Neutrophils % 67.8 % (40.0-70.0) 07/14/21 06:51 Seg Neutrophils # 5.4 K/mm3 (1.8-7.7) 07/14/21 06:51 PT 15.2 Sec. (12.2-14.9) H 07/13/21 05:56 INR 1.08 (0.87-1.13) 07/13/21 05:56 APTT 28.4 Sec. (24.2-36.6) 07/11/21 19:34 D-Dimer 705.15 ng/mlDDU (0-234) H 07/16/21 08:56 Sodium 137 mmol/L (137-145) 07/13/21 05:56 Potassium 3.9 mmol/L (3.6-5.0) 07/13/21 05:56 Chloride 99.5 mmol/L (98-107) 07/13/21 05:56 Carbon Dioxide 24 mmol/L (22-30) 07/13/21 05:56 Anion Gap 17 mmol/L 07/13/21 05:56 BUN 16 mg/dL (7-17) 07/13/21 05:56 Creatinine 0.6 mg/dL (0.6-1.2) 07/13/21 05:56 Estimated GFR > 60 ml/min 07/13/21 05:56 BUN/Creatinine Ratio 27 % 07/13/21 05:56 Glucose 103 mg/dL (65-100) H 07/13/21 05:56 Calcium 9.0 mg/dL (8.4-10.2) 07/13/21 05:56 Total Bilirubin 0.40 mg/dL (0.1-1.2) 07/11/21 19:34 AST 26 units/L (5-40) 07/11/21 19:34 ALT 20 units/L (7-56) 07/11/21 19:34 Alkaline Phosphatase 37 units/L (35-129) 07/11/21 19:34 NT-Pro-B Natriuret Pep 274.1 pg/mL (0-900) 07/14/21 06:51 Total Protein 7.2 g/dL (6.3-8.2) 07/11/21 19:34 Albumin 3.4 g/dL (3.9-5) L 07/11/21 19:34 Albumin/Globulin Ratio 0.9 % 07/11/21 19:34 TSH 3.060 mlU/mL (0.270-4.200) 07/14/21 06:51 Free T4 1.54 ng/dL (0.76-1.46) H 07/16/21 08:56 Urine Color Red (Yellow) 07/12/21 Unknown Urine Turbidity Cloudy (Clear) 07/12/21 Unknown Urine pH 6.0 (5.0-7.0) 07/12/21 Unknown Ur Specific [place] 1.017 (1.003-1.030) 07/12/21 Unknown Urine Protein 100 mg/dl mg/dL (Negative) 07/12/21 Unknown Urine Glucose (UA) Neg mg/dL (Negative) 07/12/21 Unknown Urine Ketones Tr mg/dL (Negative) 07/12/21 Unknown Urine Blood Lg (Negative) 07/12/21 Unknown Urine Nitrite Neg (Negative) 07/12/21 Unknown Urine Bilirubin Neg (Negative) 07/12/21 Unknown Urine Urobilinogen < 2.0 mg/dL (<2.0) 07/12/21 Unknown Ur Leukocyte Esterase Mod (Negative) 07/12/21 Unknown Urine WBC (Auto) 23.0 /HPF (0.0-6.0) H 07/12/21 Unknown Urine RBC (Auto) 38.0 /HPF (0.0-6.0) 07/12/21 Unknown U Epithel Cells (Auto) 3.0 /HPF (0-13.0) 07/12/21 Unknown Urine Bacteria (Auto) 2+ /HPF (Negative) 07/12/21 Unknown Urine Mucus Few /HPF 07/12/21 Unknown Coronavirus (PCR) Negative (Negative) 07/17/21 08:55 Lott/IV: Voiding Method External Female Catheter Active Medications - Current Medications Current Medications: Generic Name Dose Route Start Last Admin Trade Name Freq PRN Reason Stop Dose Admin Acetaminophen 650 mg 07/12/21 03:12 07/20/21 19:15 Acetaminophen 325 Mg Tab PO 650 mg Q4H PRN Administration Pain MILD(1-3)/Fever >100.5/CHENG Albuterol 2.5 mg 07/12/21 03:12 Albuterol 2.5 Mg/3 Ml Nebu IH Q3HRT PRN Shortness Of Breath Albuterol/Ipratropium 1 ampul 07/17/21 08:00 07/20/21 21:14 Ipratropium/Albuterol Sulfate 3 Ml Ampul.Neb IH Not Given BIDRT SWATI Arformoterol Tartrate 15 mcg 07/13/21 20:00 07/20/21 21:13 Arformoterol 15 Mcg/2 Ml Nebu IH Not Given Q12HRT SWATI Budesonide 1 mg 07/13/21 20:00 07/20/21 21:14 Budesonide 0.5 Mg/2 Ml Nebu IH Not Given Q12HRT SWATI Divalproex Sodium 250 mg 07/13/21 18:00 07/21/21 05:47 Divalproex Sprinkle 125 Mg Cap PO 250 mg Q12H SWATI Administration Famotidine 20 mg 07/12/21 10:00 07/20/21 21:38 Famotidine 20 Mg Tab PO 20 mg BID SWATI Administration Fenofibrate 145 mg 07/14/21 10:00 07/20/21 09:10 Fenofibrate 145 Mg Tab PO 145 mg DAILY SWATI Administration Lisinopril 5 mg 07/14/21 10:00 07/20/21 09:11 Lisinopril 5 Mg Tab PO 5 mg QDAY SWATI Administration Melatonin 5 mg 07/13/21 22:00 07/20/21 21:38 Melatonin 5 Mg Tab PO 5 mg QHS SAWTI Administration Metoprolol Tartrate 25 mg 07/13/21 22:00 07/20/21 22:39 Metoprolol Tartrate 25 Mg Tab PO Not Given BID SWATI Ondansetron HCl 4 mg 07/12/21 03:12 07/19/21 23:39 Ondansetron 4 Mg/2 Ml Inj IV 4 mg Q8H PRN Administration Nausea And Vomiting Pantoprazole Sodium 20 mg 07/14/21 10:00 07/20/21 09:10 Pantoprazole 20 Mg Tab PO 20 mg QDAY SWATI Administration Pravastatin Sodium 40 mg 07/13/21 22:00 07/20/21 21:38 Pravastatin 40 Mg Tab PO 40 mg QHS SWATI Administration Senna/Docusate Sodium 1 tab 07/13/21 22:00 07/20/21 21:38 Sennosides/Docusate Sodium 8.6/50 Mg Tab PO 1 tab BID SWATI Administration Sodium Chloride 10 ml 07/12/21 10:00 07/20/21 21:39 Sodium Chloride 0.9% 10 Ml Flush Syringe IV 10 ml BID SWATI Administration Sodium Chloride 10 ml 07/12/21 03:12 Sodium Chloride 0.9% 10 Ml Flush Syringe IV PRN PRN LINE FLUSH Trazodone HCl 50 mg 07/13/21 22:00 07/20/21 21:38 Trazodone 50 Mg Tab PO 50 mg QHS SWATI Administration Nutrition/Malnutrition Assess - Dietary Evaluation Nutrition/Malnutrition Findings: Nutrition Notes Start: 07/19/21 10:37 Freq: Status: Active Protocol: Document 07/19/21 10:37 AUBREE (Rec: 07/19/21 10:42 AUBREE [id number]) Nutrition Notes Need for Assessment generated from: LOS Initial or Follow up Brief Note Current Diet Cardiac Height 5 ft 7 in Weight 146.7 kg [place] Body Weight (kg) 61.36 BMI 50.6 Weight Status Morbidly Obese Subjective/Other Information Pt screened for LOS. She has consumed 75% meals since admission. She is awaiting placement. Percent of energy/protein needs met: 95% energy 61% pro Burn Absent Trauma Absent Current % PO Good (75-100%) Minimum of two criteria No Is patient on ventilator? No Is Patient Ambulatory and/or Out of Bed No REE-([facility]-confined to bed) 2458.032 Kcal/Kg value to use for calculation 12 Approximate Energy Requirements Using 1760 kcal/Kg Calculation Used for Recommendations Kcal/kg Additional Notes Pro needs 1-1.2g/kg adjBW: 104 -125g/day Fluid needs 1ml/kcal Nutrition Intervention Revisit per MD consult or patient Sign Off request:
[2021-07-21 09:15] LABS: Basophils # (Auto) 0.1 K/mm3 (0.0-0.1); Eosinophils # (Auto) 0.2 K/mm3 (0.0-0.4); Eosinophils % (Auto) 2.6 % (0.0-4.3); Hematocrit 35.4 % (30.3-42.9); Hemoglobin 12.1 gm/dl (10.1-14.3); Lymphocytes # (Auto) 1.7 K/mm3 (1.2-5.4); Lymphocytes % (Auto) 22.4 % (13.4-35.0); Mean Corpuscular HGB Conc 34 % (30-34); Mean Corpuscular Volume 93 fl (79-97); Monocytes # (Auto) 0.8 K/mm3 (0.0-0.8); Monocytes % (Auto) 11.1 % (0.0-7.3); Platelet Count 267 K/mm3 (140-440); Red Blood Count 3.81 M/mm3 (3.65-5.03); Red Cell Distribution Width 16.2 % (13.2-15.2)
[2021-07-21 09:17] LABS: Blood Urea Nitrogen 15 mg/dL (7-17); Calcium 9.1 mg/dL (8.4-10.2); Hemolysis Index 31
[2021-07-21 09:21] LABS: BUN/Creatinine Ratio 21
[2021-07-21] MEDS: BUDESONIDE 0.5 MG/2 ML NEBU IH SCH ×2 (09:42→21:31)
[2021-07-21] MEDS: ARFORMOTEROL 15 MCG/2 ML NEBU IH SCH ×2 (09:43→21:31)
[2021-07-21] MEDS: IPRATROPIUM/ALBUTEROL SULFATE 3 ML AMPUL.NEB IH SCH ×2 (09:43→21:31)
[2021-07-21] MEDS: METOPROLOL TARTRATE 25 MG TAB PO SCH ×2 (10:25→21:27)
[2021-07-21] MEDS: SENNOSIDES/DOCUSATE SODIUM 8.6/50 MG TAB PO SCH ×2 (10:25→21:26)
[2021-07-21] MEDS: FAMOTIDINE 20 MG TAB PO SCH ×2 (10:25→21:28)
[2021-07-21] MEDS: PANTOPRAZOLE 20 MG TAB PO SCH (10:25)
[2021-07-21] MEDS: FENOFIBRATE 145 MG TAB PO SCH (10:25)
[2021-07-21] MEDS: LISINOPRIL 5 MG TAB PO SCH (10:26)
[2021-07-21] MEDS: ACETAMINOPHEN 325 MG TAB PO PRN ×2 (11:46→21:37)
[2021-07-21] MEDS: traZODone 50 MG TAB PO SCH (21:27)
[2021-07-21] MEDS: MELATONIN 5 MG TAB PO SCH (21:27)
[2021-07-21] MEDS: PRAVASTATIN 40 MG TAB PO SCH (21:28)
[2021-07-22] MEDS: ACETAMINOPHEN 325 MG TAB PO PRN ×2 (01:57→11:49)
[2021-07-22] MEDS: DIVALPROEX SPRINKLE 125 MG CAP PO SCH (06:55)
[2021-07-22 07:35] LABS: Basophils # (Auto) 0.1 K/mm3 (0.0-0.1); Basophils % (Auto) 0.9 % (0.0-1.8); Eosinophils # (Auto) 0.2 K/mm3 (0.0-0.4); Eosinophils % (Auto) 3.4 % (0.0-4.3); Hemoglobin 11.6 gm/dl (10.1-14.3); Lymphocytes # (Auto) 1.6 K/mm3 (1.2-5.4); Lymphocytes % (Auto) 26.5 % (13.4-35.0); Mean Corpuscular HGB Conc 32 % (30-34); Mean Corpuscular Volume 94 fl (79-97); Monocytes # (Auto) 0.7 K/mm3 (0.0-0.8); Monocytes % (Auto) 11.3 % (0.0-7.3); Platelet Count 254 K/mm3 (140-440); Red Blood Count 3.83 M/mm3 (3.65-5.03); Red Cell Distribution Width 16.4 % (13.2-15.2)
[2021-07-22 07:47] LABS: Blood Urea Nitrogen 14 mg/dL (7-17); Calcium 8.9 mg/dL (8.4-10.2); Hemolysis Index 3
[2021-07-22 07:51] LABS: BUN/Creatinine Ratio 23
[2021-07-22] MEDS: IPRATROPIUM/ALBUTEROL SULFATE 3 ML AMPUL.NEB IH SCH ×2 (09:12→21:45)
[2021-07-22] MEDS: BUDESONIDE 0.5 MG/2 ML NEBU IH SCH ×2 (09:13→21:45)
[2021-07-22] MEDS: ARFORMOTEROL 15 MCG/2 ML NEBU IH SCH ×2 (09:13→21:44)
--- NOTE | 2021-07-22 09:47 | Progress Note ---
Assessment and Plan Assessment and plan: 66-year-old female with history of severe obesity with BMI 55, mild dementia dementia, obstructive sleep apnea, CHF, hypertension and fully ambulatory was living with her daughter when she was admitted to [facility] hospital couple of weeks ago in 06/2021 and was diagnosed with the COVID-19 pneumonia, UTI and bloodstream infection and was discharged to subacute rehab on IV antibiotics and on Eliquis for high D-dimer likely related to brought in by EMS from her [facility] due to vaginal bleeding which has been ongoing for 2 weeks. Records with patient and daughter patient had no menses for for couple of years and then menses resumed about years ago but patient did not get this evaluated. According daughter, menses are sometimes heavy. Patient is sent to ED for evaluation since having bleeding for 2 weeks with passed some clots. Some menstrual type of abdominal cramps but denies any sig nificant abdominal pain. She also denies any associated headache/vision change, neck pain, chest pain, shortness of breath, nausea/vomiting, dysuria, melena/hematochezia, or any other complaints. She has history of heart failure and there was seeing for several years then quit seeing him many years ago. In the ER patient hemoglobin is 13.5 and hematocrit 41.6. WBC 7.7, PT is 15.3 INR 1.09. Urine suggestive of UTI. Patient has no fever or chills. Subsequently Case discussed with on-call AEROSPACE ENGINEER OFFICER ARMAMENT doctor who recommends to admit under hospitalist service and she will consult the patient. (1) uterine bleeding with history of menses after a gap, age 66 years Worse since placed on Eliquis Current Visit: Yes Status: Acute Plan to address problem: Currently no vaginal bleeding off Eliquis which was started recently for elevated D-Dimer in the setting of acute COVID-19 infection. However, no documented thromboembolism in the medical records obtained from [facility]. pelvic examination performed by A[employer]OSP[employer] ENGINE[employer] ARMAMENT revealed dark blood on glove. Patient denies abdominal pains or cramping. Patient reports having menses since 2 years after interruption for a couple of years. Not previously worked up by AEROSP[employer]ENT. CT abdomen/pelvis shows minimally prominent endometrium and a calcified fibroid. Vaginal ultrasound shows borderline endometrial thickness, 0.55 Centimeters, fibroid, right ovary surgically absent. ovary is obscured by bowel gas. Urinary bladder unremarkable. Patient denies dizziness, lightheadedness, chest pains or palpitations. A[employer] ENG[employer] ARMAMENT recommends endometrial biopsy if endometrial thickness is more than 1 cm. Patient could be followed as outpatient. Dr. Avila reports that Patient to follow up as outpatient for endometrial biopsy. Dr. Avila does not have the ability to perform this procedure while patient is in house. NO acute intervention necessary. The patient will be scheduled for follow-up at discharge. PROCUREMENT CONSULTANT teaching to include: It is normal to have fluctuations in bleeding and new onset bleeding when placed on any anticoagulant. US not suspicious for malignancy. (2) Anticoagulated with Eliquis Current Visit: Yes Status: Acute Plan to address problem: We hold anticoagulation Eliquis for now. Vaginal bleeding almost stopped. I ndication for Eliquis started recently is for elevated D-Dimer in the setting of acute COVID-19 infection. However, no documented thromboembolism in the medical records obtained from [facility]. Risks appear to be higher than the benefits of anticoagulation in the absence of demonstrable as patient is having significant uterine bleeding with anticoagulation. (3) recently treated UTI with bacteremia, current urine cultures grew skin dottie Current Visit: Yes Status: Acute Plan to address problem: Patient was recently diagnosed with UTI and bacteremia at [facility] and sent home on IV antibiotics. Currently has no fever, dysuria. Empirically started on Rocephin Rocephin 2 g IV daily. Blood culture negative. Urine culture grew skin dottie. Discontinue Rocephin. Pelvic ultrasound shows unremarkable urinary bladder. Bedside bladder scan shows no urinary retention. (4) GERD (gastroesophageal reflux disease) Current Visit: Yes Status: Acute Plan to address problem: Pepcid 20 mg p.o. twice daily for GI prophylaxis. We will continue the home medication (5) mild dementia Current Visit: Yes Status: Acute Plan to address problem: Stable. Patient alert and oriented and answers to questions appropriately. She does get occasionally confused as described by her daughter. We will continue home medication (6) Hypertension Current Visit: Yes Status: Acute Plan to address problem: Hydralazine 10 mg IV every 6 hours as needed. We will continue the home medication. We will monitor the blood pressure closely (7) severe obesity, BMI 55, obstructive sleep apnea Current Visit: Yes Status: Acute Plan to address problem: Oxygen via nasal cannula 3 L/min. DuoNeb by nebulizer every 4 hours. Outpatient sleep study (8) remote history of heart failure Current Visit: Yes Status: Acute Plan to address problem: Patient was seeing a agricultural science professor, Dr. Larose for several years but then quit seeing him many years ago. Currently appears to be euvolemic. Has mild sinus tachycardia but baseline rate unknown. (9) Uterine fibroid Current Visit: Yes Status: Acute Plan to address problem: Seen on CT on the ultrasound. PROCUREMENT CONSULTANT will see the patient in consultation. Recheck CBC in the morning (10) DVT prophylaxis Current Visit: Yes Status: Acute Plan to address problem: SCD for DVT prophylaxis. Pepcid 20 mg p.o. twice daily for GI prophylaxis. Patient is a full code Discussed with the patient, nursing staff, her daughter as well as A[employer]OSP[employer] ENGINEER [employer]ICER ARMAMENT. Discharge disposition: Patient is stable for discharge pending [facility] placement. Daughter refuses to take her back home stating she is unable to care for her anymore. Daughter is refusing to talk to patient. Patient is poorly ambulatory. 07/17: Case management update for 07/17/2021. SW spoke with daughter about the patient's discharge. The SW informed daughter about patient's liability and hospital bill if she is left in the hospital. The SW explained that she will have to contact APS to file an APS report under neglect if she is not cooperative with post discharge care. The daughter reports that the patient was at [facility] and rehab where she had some complaints that the patient was not being cared for. The daughter reports that the patient was left in urine, not changed and turn when needed. The daughter says that the patient did not receive any PT while at facility. The SW asked about the Maxed out days at facility and she reports that the facility tried to find another place for patient but her insurance days had . The daughter says that the patient is not able to return home cause she is not able to care for her and that know one will be home with her. he daughter says that she will contact her [facility] plasma center to get involved. SW informed that we have to have plans for patient. 07/18: Patient still awaiting placement. Await case management recommendations with regards to placement 07/19: I called for [id number] with physician associated with insurance company. Await approval for SNF placement 07/20: Patient was denied for rehab services at [facility]. Therefore, awaiting placement to [place] for long-term care. Case management following 07/21: Patient await placement at [facility]. Patient will likely need new Covid test in a.m. Await discharge planning per case management 07/22: Patient noted to have elevated D-dimer. We will check VQ scan given patient's recent CTA of abdomen to reduce contrast load. Patient await placement at [facility] for long-[facility]. Patient will likely need new Covid test this a.m. Await discharge planning per case management History Interval history: No new issues overnight Hospitalist Physical - Constitutional Vitals: Temp Pulse Resp BP Pulse Ox 98.7 F 87 18 124/68 99 07/22/21 08:29 07/22/21 08:29 07/22/21 08:29 07/22/21 08:29 07/22/21 08:29 General appearance: Present: no acute distress, obese (Severe obesity, BMI 55.) - EENT Eyes: Present: PERRL, EOM intact ENT: hearing intact, clear oral mucosa, dentition normal - Neck Neck: Present: supple, normal ROM - Respiratory Respiratory effort: normal Respiratory: bilateral: CTA - Cardiovascular Rhythm: regular Heart Sounds: Present: S1 & S2. Absent: gallop, rub - Extremities Extremities: no ischemia, No edema, Full ROM - Abdominal General gastrointestinal: soft, non-tender, non-distended, normal bowel sounds - Integumentary Integumentary: Present: clear, warm, dry - Neurologic Neurologic: CNII-XII intact, moves all extremities Results - Labs CBC & Chem 7: 07/22/21 06:52 07/22/21 06:52 Labs: Laboratory Last Values WBC 6.2 K/mm3 (4.5-11.0) 07/22/21 06:52 RBC 3.83 M/mm3 (3.65-5.03) 07/22/21 06:52 Hgb 11.6 gm/dl (10.1-14.3) 07/22/21 06:52 Hct 36.0 % (30.3-42.9) 07/22/21 06:52 MCV 94 fl (79-97) 07/22/21 06:52 MCH 30 pg (28-32) 07/22/21 06:52 MCHC 32 % (30-34) 07/22/21 06:52 RDW 16.4 % (13.2-15.2) H 07/22/21 06:52 Plt Count 254 K/mm3 (140-440) 07/22/21 06:52 Lymph % (Auto) 26.5 % (13.4-35.0) 07/22/21 06:52 [place] % (Auto) 11.3 % (0.0-7.3) H 07/22/21 06:52 Eos % (Auto) 3.4 % (0.0-4.3) 07/22/21 06:52 Baso % (Auto) 0.9 % (0.0-1.8) 07/22/21 06:52 Lymph # (Auto) 1.6 K/mm3 (1.2-5.4) 07/22/21 06:52 [place] # (Auto) 0.7 K/mm3 (0.0-0.8) 07/22/21 06:52 Eos # (Auto) 0.2 K/mm3 (0.0-0.4) 07/22/21 06:52 Baso # (Auto) 0.1 K/mm3 (0.0-0.1) 07/22/21 06:52 Seg Neutrophils % 57.9 % (40.0-70.0) 07/22/21 06:52 Seg Neutrophils # 3.6 K/mm3 (1.8-7.7) 07/22/21 06:52 PT 15.2 Sec. (12.2-14.9) H 07/13/21 05:56 INR 1.08 (0.87-1.13) 07/13/21 05:56 APTT 28.4 Sec. (24.2-36.6) 07/11/21 19:34 D-Dimer 705.15 ng/mlDDU (0-234) H 07/16/21 08:56 Sodium 139 mmol/L (137-145) 07/22/21 06:52 Potassium 3.8 mmol/L (3.6-5.0) 07/22/21 06:52 Chloride 103.1 mmol/L (98-107) 07/22/21 06:52 Carbon Dioxide 25 mmol/L (22-30) 07/22/21 06:52 Anion Gap 15 mmol/L 07/22/21 06:52 BUN 14 mg/dL (7-17) 07/22/21 06:52 Creatinine 0.6 mg/dL (0.6-1.2) 07/22/21 06:52 Estimated GFR > 60 ml/min 07/22/21 06:52 BUN/Creatinine Ratio 23 % 07/22/21 06:52 Glucose 102 mg/dL (65-100) H 07/22/21 06:52 Calcium 8.9 mg/dL (8.4-10.2) 07/22/21 06:52 Total Bilirubin 0.40 mg/dL (0.1-1.2) 07/11/21 19:34 AST 26 units/L (5-40) 07/11/21 19:34 ALT 20 units/L (7-56) 07/11/21 19:34 Alkaline Phosphatase 37 units/L (35-129) 07/11/21 19:34 NT-Pro-B Natriuret Pep 274.1 pg/mL (0-900) 07/14/21 06:51 Total Protein 7.2 g/dL (6.3-8.2) 07/11/21 19:34 Albumin 3.4 g/dL (3.9-5) L 07/11/21 19:34 Albumin/Globulin Ratio 0.9 % 07/11/21 19:34 TSH 3.060 mlU/mL (0.270-4.200) 07/14/21 06:51 Free T4 1.54 ng/dL (0.76-1.46) H 07/16/21 08:56 Urine Color Red (Yellow) 07/12/21 Unknown Urine Turbidity Cloudy (Clear) 07/12/21 Unknown Urine pH 6.0 (5.0-7.0) 07/12/21 Unknown Ur Specific [place] 1.017 (1.003-1.030) 07/12/21 Unknown Urine Protein 100 mg/dl mg/dL (Negative) 07/12/21 Unknown Urine Glucose (UA) Neg mg/dL (Negative) 07/12/21 Unknown Urine Ketones Tr mg/dL (Negative) 07/12/21 Unknown Urine Blood Lg (Negative) 07/12/21 Unknown Urine Nitrite Neg (Negative) 07/12/21 Unknown Urine Bilirubin Neg (Negative) 07/12/21 Unknown Urine Urobilinogen < 2.0 mg/dL (<2.0) 07/12/21 Unknown Ur Leukocyte Esterase Mod (Negative) 07/12/21 Unknown Urine WBC (Auto) 23.0 /HPF (0.0-6.0) H 07/12/21 Unknown Urine RBC (Auto) 38.0 /HPF (0.0-6.0) 07/12/21 Unknown U Epithel Cells (Auto) 3.0 /HPF (0-13.0) 07/12/21 Unknown Urine Bacteria (Auto) 2+ /HPF (Negative) 07/12/21 Unknown Urine Mucus Few /HPF 07/12/21 Unknown Coronavirus (PCR) Negative (Negative) 07/17/21 08:55 Lott/IV: Voiding Method External Female Catheter Active Medications - Current Medications Current Medications: Generic Name Dose Route Start Last Admin Trade Name Freq PRN Reason Stop Dose Admin Acetaminophen 650 mg 07/12/21 03:12 07/22/21 01:57 Acetaminophen 325 Mg Tab PO 650 mg Q4H PRN Administration Pain MILD(1-3)/Fever >100.5/CHENG Albuterol 2.5 mg 07/12/21 03:12 Albuterol 2.5 Mg/3 Ml Nebu IH Q3HRT PRN Shortness Of Breath Albuterol/Ipratropium 1 ampul 07/17/21 08:00 07/22/21 09:12 Ipratropium/Albuterol Sulfate 3 Ml Ampul.Neb IH 1 ampul BIDRT SWATI Administration Arformoterol Tartrate 15 mcg 07/13/21 20:00 07/22/21 09:13 Arformoterol 15 Mcg/2 Ml Nebu IH 15 mcg Q12HRT SWATI Administration Budesonide 1 mg 07/13/21 20:00 07/22/21 09:13 Budesonide 0.5 Mg/2 Ml Nebu IH 0.5 mg Q12HRT SWATI Administration Divalproex Sodium 250 mg 07/13/21 18:00 07/22/21 06:55 Divalproex Sprinkle 125 Mg Cap PO 250 mg Q12H SWATI Administration Fenofibrate 145 mg 07/14/21 10:00 07/21/21 10:25 Fenofibrate 145 Mg Tab PO 145 mg DAILY SWATI Administration Lisinopril 5 mg 07/14/21 10:00 07/21/21 10:26 Lisinopril 5 Mg Tab PO Not Given QDAY SWATI Melatonin 5 mg 07/13/21 22:00 07/21/21 21:27 Melatonin 5 Mg Tab PO 5 mg QHS SWATI Administration Metoprolol Tartrate 25 mg 07/13/21 22:00 07/21/21 21:27 Metoprolol Tartrate 25 Mg Tab PO 25 mg BID SWATI Administration Ondansetron HCl 4 mg 07/12/21 03:12 07/19/21 23:39 Ondansetron 4 Mg/2 Ml Inj IV 4 mg Q8H PRN Administration Nausea And Vomiting Pantoprazole Sodium 20 mg 07/14/21 10:00 07/21/21 10:25 Pantoprazole 20 Mg Tab PO 20 mg QDAY SWATI Administration Pravastatin Sodium 40 mg 07/13/21 22:00 07/21/21 21:28 Pravastatin 40 Mg Tab PO 40 mg QHS SWATI Administration Senna/Docusate Sodium 1 tab 07/13/21 22:00 07/21/21 21:26 Sennosides/Docusate Sodium 8.6/50 Mg Tab PO 1 tab BID SWATI Administration Sodium Chloride 10 ml 07/12/21 10:00 07/21/21 21:28 Sodium Chloride 0.9% 10 Ml Flush Syringe IV 10 ml BID SWATI Administration Sodium Chloride 10 ml 07/12/21 03:12 Sodium Chloride 0.9% 10 Ml Flush Syringe IV PRN PRN LINE FLUSH Trazodone HCl 50 mg 07/13/21 22:00 07/21/21 21:27 Trazodone 50 Mg Tab PO 50 mg QHS SWATI Administration Nutrition/Malnutrition Assess - Dietary Evaluation Nutrition/Malnutrition Findings: Nutrition Notes Start: 07/19/21 10:37 Freq: Status: Active Protocol: Document 07/19/21 10:37 AUBREE (Rec: 07/19/21 10:42 AUBREE [id number]) Nutrition Notes Need for Assessment generated from: LOS Initial or Follow up Brief Note Current Diet Cardiac Height 5 ft 7 in Weight 146.7 kg [place] Body Weight (kg) 61.36 BMI 50.6 Weight Status Morbidly Obese Subjective/Other Information Pt screened for LOS. She has consumed 75% meals since admission. She is awaiting placement. Percent of energy/protein needs met: 95% energy 61% pro Burn Absent Trauma Absent Current % PO Good (75-100%) Minimum of two criteria No Is patient on ventilator? No Is Patient Ambulatory and/or Out of Bed No REE-([facility]-confined to bed) 2458.032 Kcal/Kg value to use for calculation 12 Approximate Energy Requirements Using 1760 kcal/Kg Calculation Used for Recommendations Kcal/kg Additional Notes Pro needs 1-1.2g/kg adjBW: 104 -125g/day Fluid needs 1ml/kcal Nutrition Intervention Revisit per MD consult or patient Sign Off request:
[2021-07-22] MEDS: PANTOPRAZOLE 20 MG TAB PO SCH (10:50)
[2021-07-22] MEDS: METOPROLOL TARTRATE 25 MG TAB PO SCH ×2 (11:50→22:34)
[2021-07-22] MEDS: FENOFIBRATE 145 MG TAB PO SCH (11:51)
[2021-07-22] MEDS: SENNOSIDES/DOCUSATE SODIUM 8.6/50 MG TAB PO SCH ×2 (13:41→22:34)
[2021-07-22] MEDS: LISINOPRIL 5 MG TAB PO SCH (13:42)
[2021-07-22] MEDS: traZODone 50 MG TAB PO SCH (22:34)
[2021-07-22] MEDS: MELATONIN 5 MG TAB PO SCH (22:34)
[2021-07-22] MEDS: PRAVASTATIN 40 MG TAB PO SCH (22:34)
[2021-07-23] MEDS: ACETAMINOPHEN 325 MG TAB PO PRN ×3 (05:54→18:02)
[2021-07-23] MEDS: DIVALPROEX SPRINKLE 125 MG CAP PO SCH ×2 (05:59→18:02)
[2021-07-23] MEDS: ONDANSETRON 4 MG/2 ML INJ IV PRN (05:59)
[2021-07-23] MEDS: BUDESONIDE 0.5 MG/2 ML NEBU IH SCH ×2 (09:04→21:11)
[2021-07-23] MEDS: ARFORMOTEROL 15 MCG/2 ML NEBU IH SCH ×2 (09:04→21:11)
[2021-07-23] MEDS: IPRATROPIUM/ALBUTEROL SULFATE 3 ML AMPUL.NEB IH SCH ×2 (09:05→21:11)
[2021-07-23] MEDS: SENNOSIDES/DOCUSATE SODIUM 8.6/50 MG TAB PO SCH ×2 (11:03→23:49)
[2021-07-23] MEDS: LISINOPRIL 5 MG TAB PO SCH (11:04)
[2021-07-23] MEDS: PANTOPRAZOLE 20 MG TAB PO SCH (12:01)
[2021-07-23] MEDS: METOPROLOL TARTRATE 25 MG TAB PO SCH ×2 (12:01→23:49)
[2021-07-23] MEDS: FENOFIBRATE 145 MG TAB PO SCH (12:01)
--- NOTE | 2021-07-23 15:22 | Vascular Lab Report ---
DUPLEX DOPPLER LOWER EXTREMITY VEINS, BILATERAL INDICATION: Elevated D-dimer, rule out DVT. TECHNIQUE: Duplex doppler imaging was performed through the veins of both lower extremities using venous ingrid hari and other maneuvers. COMPARISON: None available. FINDINGS: Right Common femoral vein: Negative. Right Superficial femoral vein: Negative. Right Popliteal vein: Negative. Right Calf veins: Negative. Left Common femoral vein: Negative. Left Superficial femoral vein: Negative. Left Popliteal vein: Acute DVT. Left Calf veins: Negative. Additional findings: None. IMPRESSION: 1. Acute DVT at the left popliteal vein is occlusive. 2. Report called to patient's nurse (Alessandra) at 2:45 PM Eastern standard time. Signer Name: Jimenez Alvarado MD Signed: 07/23/2021 3:18 PM Workstation Name: [email or web address]
[2021-07-23 16:54] LABS: Hematocrit 37.7 % (30.3-42.9); Hemoglobin 12.2 gm/dl (10.1-14.3); Mean Corpuscular HGB Conc 32 % (30-34); Mean Corpuscular Volume 94 fl (79-97); Platelet Count 265 K/mm3 (140-440); Red Blood Count 4.03 M/mm3 (3.65-5.03); Red Cell Distribution Width 16.6 % (13.2-15.2)
[2021-07-23 17:03] LABS: INR 0.95 (0.87-1.13)
[2021-07-23 17:05] LABS: Partial Thromboplastin Time 26.4 Sec. (24.2-36.6)
--- NOTE | 2021-07-23 17:20 | Cat Scan Report ---
CTA CHEST WITH IV CONTRAST INDICATION: Elevated D-dimer, rule out PE 100 ML OMNI 350 . Left lower extremity DVT. TECHNIQUE: Axial CT images were obtained through the chest after injection of IV contrast. 3 plane MIP reconstru ctions were produced. All CT scans at this location are performed using CT dose reduction for ALARA b y means of automated exposure control. COMPARISON: Bilateral lower extremity venous Doppler performed today. One view of the chest performed on 2. FINDINGS: PULMONARY ARTERIES: No pulmonary emboli. THORACIC AORTA: No significant abnormality. CORONARY ARTERY CALCIFICATION: Present -- Mild. HEART: No significant abnormality. LYMPH NODES:No significant adenopathy. TRACHEA AND BRONCHI: There is collapse of the trachea and main bronchi, consistent with tracheobronch omalacia. No other significant abnormality. LUNGS: No suspicious consolidation, nodule or mass. No pneumothorax or pleural effusion. ADDITIONAL FINDINGS: None. UPPER ABDOMEN: No acute findings. BONES: No acute findings. There are moderate degenerative changes of the spine. IMPRESSION: 1. No CT evidence for pulmonary embolism. 2. No acute findings. 3. Additional findings as above. Signer Name: Gio Chao MD Signed: 07/23/2021 5:15 PM Workstation Name: [id number][id number]
--- NOTE | 2021-07-23 19:46 | Progress Note ---
Assessment and Plan Assessment and plan: 66-year-old female with history of severe obesity with BMI 55, mild dementia dementia, obstructive sleep apnea, CHF, hypertension and fully ambulatory was living with her daughter when she was admitted to [facility] hospital couple of weeks ago in 06/2021 and was diagnosed with the COVID-19 pneumonia, UTI and bloodstream infection and was discharged to subacute rehab on IV antibiotics and on Eliquis for high D-dimer likely related to brought in by EMS from her [facility] due to vaginal bleeding which has been ongoing for 2 weeks. Records with patient and daughter patient had no menses for for couple of years and then menses resumed about years ago but patient did not get this evaluated. According daughter, menses are sometimes heavy. Patient is sent to ED for evaluation since having bleeding for 2 weeks with passed some clots. Some menstrual type of abdominal cramps but denies any sig nificant abdominal pain. She also denies any associated headache/vision change, neck pain, chest pain, shortness of breath, nausea/vomiting, dysuria, melena/hematochezia, or any other complaints. She has history of heart failure and there was seeing for several years then quit seeing him many years ago. In the ER patient hemoglobin is 13.5 and hematocrit 41.6. WBC 7.7, PT is 15.3 INR 1.09. Urine suggestive of UTI. Patient has no fever or chills. Subsequently Case discussed with on-call CAR DESIGNER doctor who recommends to admit under hospitalist service and she will consult the patient. (1) uterine bleeding with history of menses after a gap, age 66 years Worse since placed on Eliquis Current Visit: Yes Status: Acute Plan to address problem: Currently no vaginal bleeding off Eliquis which was started recently for elevated D-Dimer in the setting of acute COVID-19 infection. However, no documented thromboembolism in the medical records obtained from [facility]. pelvic examination performed by CAR DESIGNER revealed dark blood on glove. Patient denies abdominal pains or cramping. Patient reports having menses since 2 years after interruption for a couple of years. Not previously worked up by CAR DESIGNER. CT abdomen/pelvis shows minimally prominent endometrium and a calcified fibroid. Vaginal ultrasound shows borderline endometrial thickness, 0.55 Centimeters, fibroid, right ovary surgically absent. ovary is obscured by bowel gas. Urinary bladder unremarkable. Patient denies dizziness, lightheadedness, chest pains or palpitations. CAR DESIGNER recommends endometrial biopsy if endometrial thickness is more than 1 cm. Patient could be followed as outpatient. Dr. Avila reports that Patient to follow up as outpatient for endometrial biopsy. Dr. Avila does not have the ability to perform this procedure while patient is in house. NO acute intervention necessary. The patient will be scheduled for follow-up at discharge. CARRIER PACKER teaching to include: It is normal to have fluctuations in bleeding and new onset bleeding when placed on any anticoagulant. US not suspicious for malignancy. (2) Anticoagulated with Eliquis Current Visit: Yes Status: Acute Plan to address problem: We hold anticoagulation Eliquis for now. Vaginal bleeding almost stopped. Indication for Eliquis started recently is for elevated D-Dimer in the setting of acute COVID-19 infection. However, no documented thromboembolism in the medical records obtained from [facility]. Risks appear to be higher than the benefits of anticoagulation in the absence of demonstrable as patient is having significant uterine bleeding with anticoagulation. Elevated D-dimer No recurrence of vaginal bleed since Eliquis discontinued. Elevated D-dimer 705 on 07/16 and 706 on 07/23. Ultrasound on 07/23 showed acute left popliteal DVT but the CTA negative for PE. Eliquis reordered and will monitor closely for recurrence of her vaginal bleed. Patient denies chest pains or dyspnea. Remains bedbound with severe obesity and poor mobility. Patient is willing to go back to her previous [facility] once stable. (3) recently treated UTI with bacteremia, current urine cultures grew skin dottie Current Visit: Yes Status: Acute Plan to address problem: Patient was recently diagnosed with UTI and bacteremia at [facility] and sent home on IV antibiotics. Currently has no fever, dysuria. Empirically started on Rocephin Rocephin 2 g IV daily. Blood culture negative. Urine culture grew skin dottie. Discontinue Rocephin. Pelvic ultrasound shows unremarkable urinary bladder. Bedside bladder scan shows no urinary retention. (4) GERD (gastroesophageal reflux disease) Current Visit: Yes Status: Acute Plan to address problem: Pepcid 20 mg p.o. twice daily for GI prophylaxis. We will continue the home medication (5) mild dementia Current Visit: Yes Status: Acute Plan to address problem: Stable. Patient alert and oriented and answers to questions appropriately. She does get occasionally confused as described by her daughter. We will continue home medication (6) Hypertension Current Visit: Yes Status: Acute Plan to address problem: Hydralazine 10 mg IV every 6 hours as needed. We will continue the home medication. We will monitor the blood pressure closely (7) severe obesity, BMI 55, obstructive sleep apnea Current Visit: Yes Status: Acute Plan to address problem: Oxygen via nasal cannula 3 L/min. DuoNeb by nebulizer every 4 hours. Outpatient sleep study (8) remote history of heart failure Current Visit: Yes Status: Acute Plan to address problem: Patient was seeing a machine set up technician, Dr. Larose for several years but then quit seeing him many years ago. Currently appears to be euvolemic. Has mild sinus tachycardia but baseline rate unknown. (9) Uterine fibroid Current Visit: Yes Status: Acute Plan to address problem: Seen on CT on the ultrasound. CARRIER PACKER will see the patient in consultation. Recheck CBC in the morning (10) DVT prophylaxis Current Visit: Yes Status: Acute Plan to address problem: SCD for DVT prophylaxis. Pepcid 20 mg p.o. twice daily for GI prophylaxis. Patient is a full code Discussed with the patient, nursing staff, her daughter as well as CAR DESIGNER. Discharge disposition: Patient is stable for discharge pending chcf placement. Daughter refuses to take her back home stating she is unable to care for her anymore. Daughter is refusing to talk to patient. Patient is poorly ambulatory. 07/17: Case management update for 07/17/2021. SW spoke with daughter about the patient's discharge. The SW informed daughter about patient's liability and hospital bill if she is left in the hospital. The SW explained that she will have to contact APS to file an APS report under neglect if she is not cooperative with post discharge care. The daughter reports that the patient was at [facility] and rehab where she had some complaints that the patient was not being cared for. The daughter reports that the patient was left in urine, not changed and turn when needed. The daughter says that the patient did not receive any PT while at facility. The SW asked about the Maxed out days at facility and she reports that the facility tried to find another place for patient but her insurance days had . The daughter says that the patient is not able to return home cause she is not able to care for her and that know one will be home with her. he daughter says that she will contact her casket assembler metal to get involved. SW informed that we have to have plans for patient. 07/18: Patient still awaiting placement. Await case management recommendations with regards to placement 07/19: I called for [facility]ic-fl-udas with physician associated with insurance company. Await approval for SNF placement 07/20: Patient was denied for rehab services at . Therefore, awaiting placement to [place] for long-term care. Case management following 07/21: Patient await placement at [facility] for long[facility]term care. Patient will likely need new Covid test in a.m. Await discharge planning per case management 07/22: Patient noted to have elevated D-dimer. We will check VQ scan given patient's recent CTA of abdomen to reduce contrast load. Patient await placement at [facility] for long-term care. Patient will likely need new Co vid test this a.m. Await discharge planning per case management 07/23: No recurrence of vaginal bleed since Eliquis discontinued. And electrolyte 705 on 07/16 and 706 on 07/23. Ultrasound today showed acute left popliteal DVT but the CTA negative for PE. Eliquis reordered and will monitor closely for recurrence of her vaginal bleed. D/W nursing staff. Patient denies chest pains or dyspnea. Remains bedbound with severe obesity and poor mobility. Patient is willing to go back to her previous [facility] once stable. History Interval history: No recurrence of vaginal bleed since Eliquis discontinued. And electrolyte 705 on 07/16 and 706 on 07/23. Ultrasound today showed acute left popliteal DVT but the CTA negative for PE. Eliquis reordered and will monitor closely for recurrence of her vaginal bleed. Patient denies chest pains or dyspnea. Remains bedbound with severe obesity and poor mobility. Patient is willing to go back to her previous [facility] once stable. Hospitalist Physical - Constitutional Vitals: Temp Pulse Resp BP Pulse Ox 98.4 F 81 18 123/64 94 07/23/21 17:05 07/23/21 17:05 07/23/21 17:05 07/23/21 17:05 07/23/21 17:05 General appearance: Present: no acute distress, obese (Severe obesity, BMI 55.), other (Anxious) - EENT Eyes: Present: PERRL ENT: hearing intact, clear oral mucosa - Neck Neck: Present: supple - Respiratory Respiratory effort: normal Respiratory: bilateral: CTA - Cardiovascular Rhythm: regular - Extremities Extremities: No edema - Abdominal General gastrointestinal: soft, non-tender, normal bowel sounds (Obese), other - Integumentary Integumentary: Absent: rash - Psychiatric Psychiatric: other (Anxious) - Neurologic Neurologic: other (Alert and oriented. Chronically poorly ambulatory, bedbound) Results - Labs CBC & Chem 7: 07/23/21 16:29 07/23/21 16:29 Labs: Laboratory Last Values WBC 6.2 K/mm3 (4.5-11.0) 07/23/21 16:29 RBC 4.03 M/mm3 (3.65-5.03) 07/23/21 16:29 Hgb 12.2 gm/dl (10.1-14.3) 07/23/21 16:29 Hct 37.7 % (30.3-42.9) 07/23/21 16:29 MCV 94 fl (79-97) 07/23/21 16:29 MCH 30 pg (28-32) 07/23/21 16:29 MCHC 32 % (30-34) 07/23/21 16:29 RDW 16.6 % (13.2-15.2) H 07/23/21 16:29 Plt Count 265 K/mm3 (140-440) 07/23/21 16:29 Lymph % (Auto) 26.5 % (13.4-35.0) 07/22/21 06:52 [place] % (Auto) 11.3 % (0.0-7.3) H 07/22/21 06:52 Eos % (Auto) 3.4 % (0.0-4.3) 07/22/21 06:52 Baso % (Auto) 0.9 % (0.0-1.8) 07/22/21 06:52 Lymph # (Auto) 1.6 K/mm3 (1.2-5.4) 07/22/21 06:52 [place] # (Auto) 0.7 K/mm3 (0.0-0.8) 07/22/21 06:52 Eos # (Auto) 0.2 K/mm3 (0.0-0.4) 07/22/21 06:52 Baso # (Auto) 0.1 K/mm3 (0.0-0.1) 07/22/21 06:52 Seg Neutrophils % 57.9 % (40.0-70.0) 07/22/21 06:52 Seg Neutrophils # 3.6 K/mm3 (1.8-7.7) 07/22/21 06:52 PT 13.7 Sec. (12.2-14.9) 07/23/21 16:29 INR 0.95 (0.87-1.13) 07/23/21 16:29 APTT 26.4 Sec. (24.2-36.6) 07/23/21 16:29 D-Dimer 706.48 ng/mlDDU (0-234) H 07/23/21 10:36 Sodium 139 mmol/L (137-145) 07/22/21 06:52 Potassium 3.8 mmol/L (3.6-5.0) 07/22/21 06:52 Chloride 103.1 mmol/L (98-107) 07/22/21 06:52 Carbon Dioxide 25 mmol/L (22-30) 07/22/21 06:52 Anion Gap 15 mmol/L 07/22/21 06:52 BUN 14 mg/dL (7-17) 07/22/21 06:52 Creatinine 0.7 mg/dL (0.6-1.2) 07/23/21 16:29 Estimated GFR > 60 ml/min 07/23/21 16:29 BUN/Creatinine Ratio 23 % 07/22/21 06:52 Glucose 102 mg/dL (65-100) H 07/22/21 06:52 Calcium 8.9 mg/dL (8.4-10.2) 07/22/21 06:52 Total Bilirubin 0.40 mg/dL (0.1-1.2) 07/11/21 19:34 AST 26 units/L (5-40) 07/11/21 19:34 ALT 20 units/L (7-56) 07/11/21 19:34 Alkaline Phosphatase 37 units/L (35-129) 07/11/21 19:34 NT-Pro-B Natriuret Pep 274.1 pg/mL (0-900) 07/14/21 06:51 Total Protein 7.2 g/dL (6.3-8.2) 07/11/21 19:34 Albumin 3.4 g/dL (3.9-5) L 07/11/21 19:34 Albumin/Globulin Ratio 0.9 % 07/11/21 19:34 TSH 3.060 mlU/mL (0.270-4.200) 07/14/21 06:51 Free T4 1.54 ng/dL (0.76-1.46) H 07/16/21 08:56 Urine Color Red (Yellow) 07/12/21 Unknown Urine Turbidity Cloudy (Clear) 07/12/21 Unknown Urine pH 6.0 (5.0-7.0) 07/12/21 Unknown Ur Specific [place] 1.017 (1.003-1.030) 07/12/21 Unknown Urine Protein 100 mg/dl mg/dL (Negative) 07/12/21 Unknown Urine Glucose (UA) Neg mg/dL (Negative) 07/12/21 Unknown Urine Ketones Tr mg/dL (Negative) 07/12/21 Unknown Urine Blood Lg (Negative) 07/12/21 Unknown Urine Nitrite Neg (Negative) 07/12/21 Unknown Urine Bilirubin Neg (Negative) 07/12/21 Unknown Urine Urobilinogen < 2.0 mg/dL (<2.0) 07/12/21 Unknown Ur Leukocyte Esterase Mod (Negative) 07/12/21 Unknown Urine WBC (Auto) 23.0 /HPF (0.0-6.0) H 07/12/21 Unknown Urine RBC (Auto) 38.0 /HPF (0.0-6.0) 07/12/21 Unknown U Epithel Cells (Auto) 3.0 /HPF (0-13.0) 07/12/21 Unknown Urine Bacteria (Auto) 2+ /HPF (Negative) 07/12/21 Unknown Urine Mucus Few /HPF 07/12/21 Unknown Coronavirus (PCR) Negative (Negative) 07/22/21 Unknown Lott/IV: Voiding Method External Female Catheter Active Medications - Current Medications Current Medications: Generic Name Dose Route Start Last Admin Trade Name Freq PRN Reason Stop Dose Admin Acetaminophen 650 mg 07/12/21 03:12 07/23/21 18:02 Acetaminophen 325 Mg Tab PO 650 mg Q4H PRN Administration Pain MILD(1-3)/Fever >100.5/CHENG Albuterol 2.5 mg 07/12/21 03:12 Albuterol 2.5 Mg/3 Ml Nebu IH Q3HRT PRN Shortness Of Breath Albuterol/Ipratropium 1 ampul 07/17/21 08:00 07/23/21 09:05 Ipratropium/Albuterol Sulfate 3 Ml Ampul.Neb IH Not Given BIDRT SWATI Apixaban 5 mg 07/23/21 22:00 Apixaban 5 Mg Tab PO Q12HR SWATI Protocol Arformoterol Tartrate 15 mcg 07/13/21 20:00 07/23/21 09:04 Arformoterol 15 Mcg/2 Ml Nebu IH 15 mcg Q12HRT SWATI Administration Budesonide 1 mg 07/13/21 20:00 07/23/21 09:04 Budesonide 0.5 Mg/2 Ml Nebu IH 1 mg Q12HRT SWATI Administration Divalproex Sodium 250 mg 07/13/21 18:00 07/23/21 18:02 Divalproex Sprinkle 125 Mg Cap PO 250 mg Q12H SWATI Administration Fenofibrate 145 mg 07/14/21 10:00 07/23/21 12:01 Fenofibrate 145 Mg Tab PO 145 mg DAILY SWTAI Administration Lisinopril 5 mg 07/14/21 10:00 07/23/21 11:04 Lisinopril 5 Mg Tab PO Not Given QDAY SWATI Melatonin 5 mg 07/13/21 22:00 07/22/21 22:34 Melatonin 5 Mg Tab PO 5 mg QHS SWATI Administration Metoprolol Tartrate 25 mg 07/13/21 22:00 07/23/21 12:01 Metoprolol Tartrate 25 Mg Tab PO 25 mg BID SWATI Administration Ondansetron HCl 4 mg 07/12/21 03:12 07/23/21 05:59 Ondansetron 4 Mg/2 Ml Inj IV 4 mg Q8H PRN Administration Nausea And Vomiting Pantoprazole Sodium 20 mg 07/14/21 10:00 07/23/21 12:01 Pantoprazole 20 Mg Tab PO 20 mg QDAY SWATI Administration Pravastatin Sodium 40 mg 07/13/21 22:00 07/22/21 22:34 Pravastatin 40 Mg Tab PO 40 mg QHS SWATI Administration Senna/Docusate Sodium 1 tab 07/13/21 22:00 07/23/21 11:03 Sennosides/Docusate Sodium 8.6/50 Mg Tab PO Not Given BID SWATI Sodium Chloride 10 ml 07/12/21 10:00 07/23/21 11:03 Sodium Chloride 0.9% 10 Ml Flush Syringe IV 10 ml BID SWATI Administration Sodium Chloride 10 ml 07/12/21 03:12 Sodium Chloride 0.9% 10 Ml Flush Syringe IV PRN PRN LINE FLUSH Trazodone HCl 50 mg 07/13/21 22:00 07/22/21 22:34 Trazodone 50 Mg Tab PO 50 mg QHS SWATI Administration Nutrition/Malnutrition Assess - Dietary Evaluation Nutrition/Malnutrition Findings: Nutrition Notes Start: 07/19/21 10:37 Freq: Status: Active Protocol: Document 07/19/21 10:37 AUBREE (Rec: 07/19/21 10:42 AUBREE [id number]) Nutrition Notes Need for Assessment generated from: LOS Initial or Follow up Brief Note Current Diet Cardiac Height 5 ft 7 in Weight 146.7 kg [place] Body Weight (kg) 61.36 BMI 50.6 Weight Status Morbidly Obese Subjective/Other Information Pt screened for LOS. She has consumed 75% meals since admission. She is awaiting placement. Percent of energy/protein needs met: 95% energy 61% pro Burn Absent Trauma Absent Current % PO Good (75-100%) Minimum of two criteria No Is patient on ventilator? No Is Patient Ambulatory and/or Out of Bed No REE-([facility]-confined to bed) 2458.032 Kcal/Kg value to use for calculation 12 Approximate Energy Requirements Using 1760 kcal/Kg Calculation Used for Recommendations Kcal/kg Additional Notes Pro needs 1-1.2g/kg adjBW: 104 -125g/day Fluid needs 1ml/kcal Nutrition Intervention Revisit per MD consult or patient Sign Off request:
[2021-07-23] MEDS: PRAVASTATIN 40 MG TAB PO SCH (23:49)
[2021-07-23] MEDS: traZODone 50 MG TAB PO SCH (23:49)
[2021-07-23] MEDS: APIXABAN 5 MG TAB PO SCH (23:50)
[2021-07-23] MEDS: MELATONIN 5 MG TAB PO SCH (23:50)
[2021-07-24] MEDS: DIVALPROEX SPRINKLE 125 MG CAP PO SCH (06:11)
[2021-07-24] MEDS: BUDESONIDE 0.5 MG/2 ML NEBU IH SCH ×2 (08:55→21:06)
[2021-07-24] MEDS: ARFORMOTEROL 15 MCG/2 ML NEBU IH SCH ×2 (08:55→21:06)
[2021-07-24] MEDS: IPRATROPIUM/ALBUTEROL SULFATE 3 ML AMPUL.NEB IH SCH ×2 (08:55→21:06)
[2021-07-24] MEDS: PANTOPRAZOLE 20 MG TAB PO SCH (10:22)
[2021-07-24] MEDS: LISINOPRIL 5 MG TAB PO SCH (10:22)
[2021-07-24] MEDS: METOPROLOL TARTRATE 25 MG TAB PO SCH (10:22)
[2021-07-24] MEDS: SENNOSIDES/DOCUSATE SODIUM 8.6/50 MG TAB PO SCH (10:22)
[2021-07-24] MEDS: FENOFIBRATE 145 MG TAB PO SCH (10:22)
[2021-07-24] MEDS: APIXABAN 5 MG TAB PO SCH (10:22)
--- NOTE | 2021-07-24 15:31 | Discharge Summary ---
Providers - Providers Date of Admission: 07/12/21 03:12 Date of discharge: 07/24/21 Attending physician: ELLI GONSALVES MD 07/12/21 02:14 Consult to Physician [CONS] Urgent Comment: Consulting Provider: RACHEL PAIZ Physician Instructions: Reason For Exam: vag bleeding on eliquis 07/13/21 12:54 psychiatry consult [Consult to Mental Health] [CONS] Stat Reason For Exam: acute paranoid 07/15/21 13:29 Physical Therapy Evaluation and Treat [CONS] Routine Comment: Reason For Exam: Eval and Treat Primary care physician: [facility] Hospitalization Condition: Stable Hospital course: 66-year-old female with history of severe obesity with BMI 55, mild dementia dementia, obstructive sleep apnea, CHF, hypertension and fully ambulatory was living with her daughter when she was admitted to [facility] couple of weeks ago in 06/2021 and was diagnosed with the COVID-19 pneumonia, UTI and bloodstream infection and was discharged to subacute rehab on IV antibiotics and on Eliquis for high D-dimer likely related to brought in by EMS from her prison due to vaginal bleeding which has been ongoing for 2 weeks. Records with patient and daughter patient had no menses for for couple of years and then menses resumed about years ago but patient did not get this evaluated. According daughter, menses are sometimes heavy. Patient is sent to ED for evaluation since having bleeding for 2 weeks with passed some clots. Some menstrual type of abdominal cramps but denies any significant abdominal pain. She also denies any associated headache/vision change, neck pain, chest pain, shortness of breath, nausea/vomiting, dysuria, melena/hematochezia, or any other complaints. She has history of heart failure and there was seeing for several years then quit seeing him many years ago. In the ER patient hemoglobin is 13.5 and hematocrit 41.6. WBC 7.7, PT is 15.3 INR 1.09. Urine suggestive of UTI. Patient has no fever or chills. Subsequently Case discussed with on-call ZMT OPERATOR doctor who recommends to admit under hospitalist service and she will consult the patient. (1) uterine bleeding with history of menses after a gap, age 66 years Worse since placed on Eliquis Current Visit: Yes Status: Acute Plan to address problem: Currently no vaginal bleeding off Eliquis which was started recently for elevated D-Dimer in the setting of acute COVID-19 infection. However, no documented thromboembolism in the medical records obtained from [facility]. pelvic examination performed by ZMT OPERATOR revealed dark blood on glove. Patient denies abdominal pains or cramping. Patient reports having menses since 2 years after interruption for a couple of years. Not previously worked up by ZMT OPERATOR. CT abdomen/pelvis shows minimally prominent endometrium and a calcified fibroid. Vaginal ultrasound shows borderline endometrial thickness, 0.55 Centimeters, fibroid, right ovary surgically absent. ovary is obscured by bowel gas. Urinary bladder unremarkable. Patient denies dizziness, lightheadedness, chest pains or palpitations. ZMT OPERATOR recommends endometrial biopsy if endometrial thickness is more than 1 cm. Patient could be followed as outpatient. Dr. Avila reports that Patient to follow up as outpatient for endometrial biopsy. Dr. Avila does not have the ability to perform this procedure while patient is in house. NO acute intervention necessary. The patient will be scheduled for follow-up at discharge. GRINDER OPERATOR TOOL teaching to include: It is normal to have fluctuations in bleeding and new onset bleeding when placed on any anticoagulant. US not suspicious for malignancy. (2) Anticoagulated with Eliquis Current Visit: Yes Status: Acute Plan to address problem: We hold anticoagulation Eliquis for now. Vaginal bleeding almost stopped. Indication for Eliquis started recently is for elevated D-Dimer in the setting of acute COVID-19 infection. However, no documented thromboembolism in the medical records obtained from [facility]. Risks appear to be higher than the benefits of anticoagulation in the absence of demonstrable as patient is having significant uterine bleeding with anticoagulation. Elevated D-dimer No recurrence of vaginal bleed since Eliquis discontinued. Elevated D-dimer 705 on 07/16 and 706 on 07/23. Ultrasound on 07/23 showed acute left popliteal DVT but the CTA negative for PE. Eliquis reordered and will monitor closely for recurrence of her vaginal bleed. Patient denies chest pains or dyspnea. Remains bedbound with severe obesity and poor mobility. Patient is willing to go back to her previous prison once stable. (3) recently treated UTI with bacteremia, current urine cultures grew skin dottie Current Visit: Yes Status: Acute Plan to address problem: Patient was recently diagnosed with UTI and bacteremia at [facility] and sent home on IV antibiotics. Currently has no fever, dysuria. Empirically started on Rocephin Rocephin 2 g IV daily. Blood culture negative. Urine culture grew skin dottie. Discontinue Rocephin. Pelvic ultrasound shows unremarkable urinary bladder. Bedside bladder scan shows no urinary retention. (4) GERD (gastroesophageal reflux disease) Current Visit: Yes Status: Acute Plan to address problem: Pepcid 20 mg p.o. twice daily for GI prophylaxis. We will continue the home medication (5) mild dementia Current Visit: Yes Status: Acute Plan to address problem: Stable. Patient alert and oriented and answers to questions appropriately. She does get occasionally confused as described by her daughter. We will continue home medication (6) Hypertension Current Visit: Yes Status: Acute Plan to address problem: Hydralazine 10 mg IV every 6 hours as needed. We will continue the home medication. We will monitor the blood pressure closely (7) severe obesity, BMI 55, obstructive sleep apnea Current Visit: Yes Status: Acute Plan to address problem: Oxygen via nasal cannula 3 L/min. DuoNeb by nebulizer every 4 hours. Outpatient sleep study (8) remote history of heart failure Current Visit: Yes Status: Acute Plan to address problem: Patient was seeing a gate services supervisor, Dr. Larose for several years but then quit seeing him many years ago. Currently appears to be euvolemic. Has mild sinus tachycardia but baseline rate unknown. (9) Uterine fibroid Current Visit: Yes Status: Acute Plan to address problem: Seen on CT on the ultrasound. GRINDER OPERATOR TOOL will see the patient in consultation. Recheck CBC in the morning (10) DVT prophylaxis Current Visit: Yes Status: Acute Plan to address problem: SCD for DVT prophylaxis. Pepcid 20 mg p.o. twice daily for GI prophylaxis. Patient is a full code Discussed with the patient, nursing staff, her daughter as well as ZMT OPERATOR. Discharge disposition: Patient is stable for discharge pending prison placement. Daughter refuses to take her back home stating she is unable to care for her anymore. Daughter is refusing to talk to patient. Patient is poorly ambulatory. 07/17: Case management update for 07/17/2021. SW spoke with daughter about the patient's discharge. The SW informed daughter about patient's liability and hospital bill if she is left in the hospital. The SW explained that she will have to contact APS to file an APS report under neglect if she is not cooperative with post discharge care. The daughter reports that the patient was at [facility] and rehab where she had some complaints that the patient was not being cared for. The daughter reports that the patient was left in urine, not changed and turn when needed. The daughter says that the patient did not receive any PT while at facility. The SW asked about the Maxed out days at facility and she reports that the facility tried to find another place for patient but her insurance days had . The daughter says that the patient is not able to return home cause she is not able to care for her and that know one will be home with her. he daughter says that she will contact her ballistic expert to get involved. SW informed that we have to have plans for patient. 07/18: Patient still awaiting placement. Await case management recommendations with regards to placement 07/19: I called for [id number] with physician associated with insurance company. Await approval for SNF placement 07/20: Patient was denied for rehab services at [facility]. Therefore, awaiting placement to [place] for long-term care. Case management following 07/21: Patient await placement at prison for long-term care. Patient will likely need new Covid test in a.m. Await discharge planning per case management 07/22: Patient noted to have elevated D-dimer. We will check VQ scan given patient's recent CTA of abdomen to reduce contrast load. Patient await placement at prison for long-term care. Patient will likely need new Covid test this a.m. Await discharge planning per case management 07/23: No recurrence of vaginal bleed since Eliquis discontinued. And electrolyte 705 on 07/16 and 706 on 07/23. Ultrasound today showed acute left popliteal DVT but the CTA negative for PE. Eliquis reordered and will monitor closely for recurrence of her vaginal bleed. D/W nursing staff. Patient denies chest pains or dyspnea. Remains bedbound with severe obesity and poor mobility. Patient is willing to go back to her previous prison once stable. Disposition: 03 SNF FACILITY Final Discharge Diagnosis (Prints w/discharge instructions): Acute left popliteal DVT. Elevated D-dimer. Postmenopausal Bleeding, Worse on Eliquis. Morbid Obesity Exam - Constitutional Vitals: Temp Pulse Resp BP Pulse Ox 98.6 F 76 18 132/70 98 07/23/21 20:00 07/24/21 10:00 07/23/21 20:00 07/23/21 20:00 07/24/21 10:00 Plan Activity: advance as tolerated Diet: low fat, low salt Follow up with: PRIMARY CARE, [Primary Care Provider] - 7 Days Forms: Discharge Signature Page
[2021-07-24 19:52] VITALS: BP 113/73
== END 2021-07-24 20:00 | DRG 760 ==
LOC: ED 18:44 → 4A 07-12 03:12
PROVIDERS: ADMIT Hospitalist; ATTEND Internal Medicine
DX: D25.9 Leiomyoma of uterus, unspecified (principal); N39.0 Urinary tract infection, site not specified; Z68.43 Body mass index [BMI] 50.0-59.9, adult; I82.432 Acute embolism and thrombosis of left popliteal vein; N93.9 Abnormal uterine and vaginal bleeding, unspecified; E66.01 Morbid (severe) obesity due to excess calories; I11.0 Hypertensive heart disease with heart failure; I50.9 Heart failure, unspecified; K21.9 Gastro-esophageal reflux disease without esophagitis; F03.90 Unspecified dementia, unspecified severity, without behavioral disturbance, psychotic disturbance, mood disturbance, and anxiety; G47.33 Obstructive sleep apnea (adult) (pediatric); M19.90 Unspecified osteoarthritis, unspecified site; Z20.822 Contact with and (suspected) exposure to COVID-19
CPT/HCPCS: 36415; 71045; 71275; 74174; 76705; 76830; 76856; 80048; 80053; 81001; 82565; 83880; 84439; 84443; 85025; 85027; 85379; 85610; 85730; 87040; 87086; 93005; 93010; 93970; 94640; 94644; G0378; Q0162; J0692; J0696; J1170; J2405; J7030; J7040; Q9967; U0003

== ENCOUNTER 2022-01-14 19:01 | Emergency (ER) | payer MEDICARE, MEDICAID ==
[2022-01-14 23:11] LABS: Hematocrit 41.9 % (30.3-42.9); Mean Corpuscular HGB Conc 34 % (30-34); Mean Corpuscular Volume 90 fl (79-97); Platelet Count 270 K/mm3 (140-440); Red Blood Count 4.68 M/mm3 (3.65-5.03); Red Cell Distribution Width 15.1 % (13.2-15.2)
[2022-01-14 23:17] LABS: BUN/Creatinine Ratio 24; Blood Urea Nitrogen 17 mg/dL (7-17); Calcium 9.2 mg/dL (8.4-10.2); Hemolysis Index 55
[2022-01-14 23:55] LABS: Basophils # (Auto) 0.1 K/mm3 (0.0-0.1); Eosinophils # (Auto) 0.1 K/mm3 (0.0-0.4); Eosinophils % (Auto) 1.2 % (0.0-4.3); Lymphocytes # (Auto) 2.7 K/mm3 (1.2-5.4); Lymphocytes % (Auto) 22.5 % (13.4-35.0); Monocytes # (Auto) 1.3 K/mm3 (0.0-0.8); Monocytes % (Auto) 10.6 % (0.0-7.3)
--- NOTE | 2022-01-15 00:30 | Emergency Department Report ---
ED General Adult HPI - General Chief complaint: Psych Stated complaint: SUICIDAL PUI?: Yes Time Seen by Provider: 01/14/22 22:05 Source: EMS Mode of arrival: Stretcher Limitations: Physical Limitation - History of Present Illness Initial comments: 66-year-old morbidly obese female sent from long-term facility for evaluation of SI. Pt states "I'm so depressed where I am now. I'm always in bed, I can't walk, and they don't let me go anywhere. I told them that " I should just take a cord and wrapped around my neck and ended all" and then she states "I knew that we will get the ball rolling and that they would send me here." Patient reports "severe depression" since being at her long-term facility stating she feels lonely. No auditory visual hallucinations. Pain currently located to her buttocks which she states is chronic secondary to being bedbound. Pain currently 4/10. Severity scale (0 -10): 0 - Related Data Home Medications Medication Instructions Recorded Confirmed Last Taken Acetaminophen [Non-Aspirin Extra 1,000 mg PO Q6HR PRN 07/12/21 07/12/21 Unknown Strength] Albuterol Mdi (or & Nicu Only) 2 puff IH Q4H PRN 07/12/21 07/12/21 Unknown [ProAir HFA Inhaler] Benzonatate [Tessalon Perles] 100 mg PO TID PRN 07/12/21 07/12/21 Unknown Budesonide/Formoterol Fumarate 2 puff IH Q12H 07/12/21 07/12/21 Unknown [Symbicort 160-4.5 Mcg Inhaler] Divalproex Sprinkle [Depakote 250 mg PO Q12H 07/12/21 07/12/21 Unknown Sprinkle] Enalapril Maleate [Vasotec] 5 mg PO QDAY 07/12/21 07/12/21 Unknown Fenofibrate 160 mg PO QDAY 07/12/21 07/12/21 Unknown Melatonin [Melatonin 3MG TAB] 3 mg PO QHS 07/12/21 07/12/21 Unknown Metoprolol [Lopressor TAB] 25 mg PO BID 07/12/21 07/12/21 Unknown Omeprazole 20 mg PO QDAY 07/12/21 07/12/21 Unknown Sennosides/Docusate Sodium 1 tab PO BID 07/12/21 07/12/21 Unknown [Docusate Sodium-Senna Tablet] Simvastatin 20 mg PO QHS 07/12/21 07/12/21 Unknown traZODone [Desyrel] 50 mg PO QHS 07/12/21 07/12/21 Unknown Previous Rx's Medication Instructions Recorded Last Taken Type Apixaban [Eliquis] 5 mg PO Q12HR tablet 07/24/21 Unknown Rx Allergies Allergy/AdvReac Type Severity Reaction Status Date / Time No Known Allergies Allergy Verified 07/12/21 08:57 ED Review of Systems ROS: Stated complaint: SUICIDAL Other details as noted in HPI Comment: All other systems reviewed and negative ED Past Medical Hx - Past Medical History Hx Hypertension: Yes Hx GERD: Yes (with esophagitis) Hx Asthma: Yes (unilateral osteoartritis) Hx Dementia: Yes Additional medical history: UTIs, Obstructive Sleep Apnea, Bedbound at [facility] Nursing, Patient take Eliquis - Social History Smoking Status: Never Smoker - Medications Home Medications: Home Medications Medication Instructions Recorded Confirmed Last Taken Type Acetaminophen [Non-Aspirin Extra 1,000 mg PO Q6HR PRN 07/12/21 07/12/21 Unknown History Strength] Albuterol Mdi (or & Nicu Only) 2 puff IH Q4H PRN 07/12/21 07/12/21 Unknown History [ProAir HFA Inhaler] Benzonatate [Tessalon Perles] 100 mg PO TID PRN 07/12/21 07/12/21 Unknown History Budesonide/Formoterol Fumarate 2 puff IH Q12H 07/12/21 07/12/21 Unknown History [Symbicort 160-4.5 Mcg Inhaler] Divalproex Sprinkle [Depakote 250 mg PO Q12H 07/12/21 07/12/21 Unknown History Sprinkle] Enalapril Maleate [Vasotec] 5 mg PO QDAY 07/12/21 07/12/21 Unknown History Fenofibrate 160 mg PO QDAY 07/12/21 07/12/21 Unknown History Melatonin [Melatonin 3MG TAB] 3 mg PO QHS 07/12/21 07/12/21 Unknown History Metoprolol [Lopressor TAB] 25 mg PO BID 07/12/21 07/12/21 Unknown History Omeprazole 20 mg PO QDAY 07/12/21 07/12/21 Unknown History Sennosides/Docusate Sodium 1 tab PO BID 07/12/21 07/12/21 Unknown History [Docusate Sodium-Senna Tablet] Simvastatin 20 mg PO QHS 07/12/21 07/12/21 Unknown History traZODone [Desyrel] 50 mg PO QHS 07/12/21 07/12/21 Unknown History Apixaban [Eliquis] 5 mg PO Q12HR tablet 07/24/21 Unknown Rx ED Physical Exam - General Limitations: No Limitations, Physical Limitation General appearance: alert, obese - Head Head exam: Present: atraumatic, normocephalic, normal inspection - Eye Eye exam: Present: normal appearance, PERRL, EOMI Pupils: Present: normal accommodation - ENT ENT exam: Present: normal exam, normal orophraynx, mucous membranes moist, normal external ear exam - Neck Neck exam: Present: normal inspection, full ROM - Respiratory Respiratory exam: Present: normal lung sounds bilaterally - Cardiovascular Cardiovascular Exam: Present: regular rate, normal rhythm - GI/Abdominal GI/Abdominal exam: Present: soft - Extremities Exam Extremities exam: Present: normal inspection, full ROM - Back Exam Back exam: Present: normal inspection, full ROM - Neurological Exam Neurological exam: Present: alert, oriented X3, CN II-XII intact, normal gait, motor sensory deficit, reflexes normal - Psychiatric Psychiatric exam: Present: normal affect - Skin Skin exam: Present: warm, dry, intact ED Course Vital Signs 01/14/22 19:35 Temperature 98.1 F Pulse Rate 97 H Respiratory 14 Rate Blood Pressure 130/92 [Right] O2 Sat by Pulse 98 Oximetry ED Medical Decision Making - Lab Data Result diagrams: 01/14/22 22:23 01/14/22 22:23 - Medical Decision Making 66yo morbidly obese F with multiple medical comorbidities, sent from long-term facility for evaluation of suicidal ideation. Vital signs stable. 1013 form signed. CBC shows mild leukocytosis. Comprehensive metabolic panel unremarkable.UDS, and urinalysis pending. Pt has been medically cleared. Mental health consult placed. Pt to be held in ER overnight for psychiatric formal evaluation and final disposition. Critical care attestation.: If time is entered above; I have spent that time in minutes in the direct care of this critically ill patient, excluding procedure time. ED Disposition Clinical Impression: Suicidal ideation Disposition: 30 STILL A PATIENT Is pt being admited?: No Does the pt Need Aspirin: No Condition: Stable
[2022-01-15] MEDS: ACETAMINOPHEN 325 MG TAB PO SCH ×2 (01:15→07:30)
[2022-01-15 06:39] LABS: Bacteria,Urine 2+ /HPF (Negative); RBC,Urine < 1.0 /HPF (0.0-6.0)
[2022-01-15 06:44] LABS: Color,Urine Yellow (Yellow)
--- NOTE | 2022-01-15 13:01 | Event Note ---
Date: 01/15/22 S: No events reported overnight O: Vital Signs - 24 hr 01/14/22 01/15/22 19:35 06:02 Temperature 98.1 F Pulse Rate 97 H 80 Respiratory 14 18 Rate Blood Pressure 130/92 122/70 [Right] O2 Sat by Pulse 98 95 Oximetry A: Suicidal ideation P: Awaiting psych eval
--- NOTE | 2022-01-15 13:35 | Consultation ---
History of Present Illness - Reason for Consult Consult date: 01/15/22 Reason for consult: SI - History of Present Psychiatric Illness The patient was seen today. She is calm and cooperative. The patient says she came from [facility]. She says she's in bed all day and the do not get her up. She says she is depressed being at that shelter. The patient says she is tired of being in her room. She says her nephew was supposed to had gotten his CONTRACT ADMINISTRATION MANAGER and sat with her but it didn't happen. She says "I made a stupid comment about wrapping a cord around my neck." She says "I would never do that. I'm not suicidal or would never hurt anybody. I did that so I could get out of that room for awhile." The patient says she has no psych history. She says she has never attempted suicide in the past. The patient denies hallucinations. PAST PSYCHIATRIC HISTORY Diagnoses: Denies Suicide attempts or Self-harm behavior: Denies Prior psychiatric hospitalizations: Denies Substance Abuse history: Denies Previous psychiatric medications tried: depakote Outpatient treatment: Unknown SOCIAL HISTORY Marital Status: Living Arrangements: jail Employment Status: Retired Access to guns/weapons: Denies Education: History of abuse: Denies Legal History: Denies ROS Constitutional: Negative for weight loss EMT: Respiratory: Negative for cough or hemoptysis All other systems reviewed and are negative MENTAL STATUS EXAMINATION General Appearance: Dressed appropriately. Behavior: Calm and cooperative. Good eye contact. Mood: Depressed Affect: congruent to stated mood Speech: Normal Thought Process: goal directed Thought Content: None Suicidal Ideation: Denies Homicidal Ideation: Denies Hallucinations: Denies Delusions: None elicited Insight and Judgment: Limited Memory/Cognition: Limited Assessment and Plan (1) Encounter for Mental Health Exam Treatment Plan d/c 1013 Risks, benefits and alternatives of medications discussed with the patient, questions answered and consent obtained from patient. PSYCHOTHERAPY: Supportive psychotherapy provided MEDICAL: Per primary team DELIRIUM PRECAUTIONS: Please re-orient patient frequently, keep lights on during the day, and minimize benzodiazepines and opiates as these medications could worsen patient's confusion. TAILOR WOMEN'S GARMENT ALTERATION: Per primary DISPOSITION: Do not Recommend acute inpatient psychiatric hospitalization at this time. Will sign off. Thank you for the consult. Please contact with any questions and/or concerns. Case discussed with Dr. Fitzgerald who agrees with current disposition Medications and Allergies Allergies Allergy/AdvReac Type Severity Reaction Status Date / Time No Known Allergies Allergy Verified 07/12/21 08:57 Home Medications Medication Instructions Recorded Confirmed Last Taken Type Acetaminophen [Non-Aspirin Extra 1,000 mg PO Q6HR PRN 07/12/21 07/12/21 Unknown History Strength] Albuterol Mdi (or & Nicu Only) 2 puff IH Q4H PRN 07/12/21 07/12/21 Unknown History [ProAir HFA Inhaler] Benzonatate [Tessalon Perles] 100 mg PO TID PRN 07/12/21 07/12/21 Unknown History Budesonide/Formoterol Fumarate 2 puff IH Q12H 07/12/21 07/12/21 Unknown History [Symbicort 160-4.5 Mcg Inhaler] Divalproex Sprinkle [Depakote 250 mg PO Q12H 07/12/21 07/12/21 Unknown History Sprinkle] Enalapril Maleate [Vasotec] 5 mg PO QDAY 07/12/21 07/12/21 Unknown History Fenofibrate 160 mg PO QDAY 07/12/21 07/12/21 Unknown History Melatonin [Melatonin 3MG TAB] 3 mg PO QHS 07/12/21 07/12/21 Unknown History Metoprolol [Lopressor TAB] 25 mg PO BID 07/12/21 07/12/21 Unknown History Omeprazole 20 mg PO QDAY 07/12/21 07/12/21 Unknown History Sennosides/Docusate Sodium 1 tab PO BID 07/12/21 07/12/21 Unknown History [Docusate Sodium-Senna Tablet] Simvastatin 20 mg PO QHS 07/12/21 07/12/21 Unknown History traZODone [Desyrel] 50 mg PO QHS 07/12/21 07/12/21 Unknown History Apixaban [Eliquis] 5 mg PO Q12HR tablet 07/24/21 Unknown Rx Active Meds: Active Medications Acetaminophen (Acetaminophen 325 Mg Tab) 650 mg PO Q6H [facility] Last Admin: 01/15/22 07:30 Dose: 650 mg Mental Status Exam - Vital signs Last Vital Signs Temp 98.1 F 01/14/22 19:35 Pulse 80 08/17/22 06:02 Resp 18 01/15/22 06:02 BP 122/70 01/15/22 06:02 Pulse Ox 95 01/15/22 06:02 Results Result Diagrams: 01/14/22 22:23 01/14/22 22:23 Abnormal lab results 01/14/22 01/14/22 01/15/22 Range/Units 22:23 22:23 00:38 WBC 12.0 H (4.5-11.0) K/mm3 [place] % (Auto) 10.6 H (0.0-7.3) % [place] # (Auto) 1.3 H (0.0-0.8) K/mm3 Seg Neutrophils # 7.8 H (1.8-7.7) K/mm3 Glucose 105 H (65-100) mg/dL Salicylates < 0.3 L (2.8-20.0) mg/dL Acetaminophen (10.0-30.0) ug/mL 01/15/22 Range/Units 00:38 WBC (4.5-11.0) K/mm3 [place] % (Auto) (0.0-7.3) % [place] # (Auto) (0.0-0.8) K/mm3 Seg Neutrophils # (1.8-7.7) K/mm3 Glucose (65-100) mg/dL Salicylates (2.8-20.0) mg/dL Acetaminophen 8.2 L (10.0-30.0) ug/mL All other labs normal.
[2022-01-15 18:37] VITALS: BP 126/61
== END 2022-01-15 23:26 | disposition home or self-care (01) ==
LOC: ED 19:01 → EEVIPCON 19:01 → ED 01-15 23:26
DX: R45.851 Suicidal ideations (principal); I10 Essential (primary) hypertension; K21.9 Gastro-esophageal reflux disease without esophagitis; J45.909 Unspecified asthma, uncomplicated; F03.90 Unspecified dementia, unspecified severity, without behavioral disturbance, psychotic disturbance, mood disturbance, and anxiety; Z91.09 Other allergy status, other than to drugs and biological substances; Z79.899 Other long term (current) drug therapy
CPT/HCPCS: 36415; 80048; 80320; 81001; 85025; 99284; G0480